=== PATIENT | male | born 1930 | race Caucasian/White ===

== ENCOUNTER → 2017-07-14 | Day surgery (SDC) | payer MEDICARE ==
[2017-07-13 12:06] LABS: BASOPHILS % 0.5 % (0.0-1.0); EOSINOPHILS # (AUTO) 0.1 (0.0-0.4); EOSINOPHILS % 0.9 % (0.0-6.0); HEMATOCRIT 37.2 % (38.2-49.6); HEMOGLOBIN 12.6 g/dL (14.0-18.0); LYMPHOCYTES # (AUTO) 2.9 (1.0-3.2); LYMPHOCYTES % 38.2 % (18.0-39.1); MEAN CORPUSCULAR HEMOGLOBIN 31.3 pg (28-32); MEAN CORPUSCULAR HGB CONC 33.9 g/dL (31-35); MEAN CORPUSCULAR VOLUME 92.5 fL (81-99); MONOCYTES # (AUTO) 0.9 (0.2-0.8); MONOCYTES % 12.4 % (4.4-11.3); NEUTROPHILS # (AUTO) 3.6 (2.1-6.9); NEUTROPHILS % 47.2 % (38.7-80.0); PLATELET COUNT 190 x10e3/uL (140-360); RED BLOOD COUNT 4.02 x10e6/uL (4.3-5.7); RED CELL DISTRIBUTION WIDTH 13.4 % (11.7-14.4)
[2017-07-13 12:15] LABS: INR 1.01; PROTHROMBIN TIME 12.5 seconds (11.9-14.5)
[2017-07-13 12:21] LABS: ANION GAP 15.7 mmol/L (8-16); CALCIUM 9.9 mg/dL (8.4-10.2); CREATININE, SERUM 1.65 mg/dL (0.72-1.25); POTASSIUM 4.7 mmol/L (3.5-5.1)
--- NOTE | 2017-07-13 12:49 | Diagnostic Imaging Report ---
PROCEDURE: Frontal and lateral views of the chest. COMPARISON: Chest 2 views 04/25/2016. INDICATIONS: PRE-OP FINDINGS: Lines/tubes: Left chest device with leads projecting over the expected regions of the right atrium and ventricle. Lungs: The lungs are well inflated and clear. There is no evidence of pneumonia or pulmonary edema. Pleura: There is no pleural effusion or pneumothorax. Heart and mediastinum: The heart and the mediastinum are normal. Atherosclerotic calcifications. Bones: No acute bony abnormality. Degenerative changes of the thoracic spine. IMPRESSION: No acute radiographic abnormality. Dictated by: Charles Arvizu M.D. on 07/13/2017 at 12:49 Electronically approved by: Charles Arvizu M.D. on 07/13/2017 at 12:49
[2017-07-14] VITALS (7 sets, daily range): BP systolic 114–143; BP diastolic 62–77
[~2017-07-14] VITALS: Ht 172.7 cm; Wt 99.8 kg
[~2017-07-14] MED LIST: ACTOS15 MG PO; ALBUTEROL SULF8.5 GM INH; ASPIRIN EC81 MG PO; ASPIRIN325 MG PO; BACITRACIN 50,000 UNIT VIAL ONE; CEFAZOLIN SOD 1 GM VIAL ONE; CEPHALEXIN500 MG PO; CHLORTHALIDONE25 MG PO; CITALOPRAM HBR20 MG PO; FENTANYL CITRATE/PF 100MCG/2 ML INJ ONE; GLIPIZIDE5 MG PO; HEPARIN SOD/SOD CHLORIDE 1,000 ML ONE; HYDROXYZINE HCL25 MG PO; LEVAQUIN500 MG PO; LIDOCAINE 1% W/EPINEPHRINE 20 ML VIAL ONE; LIDOCAINE HCL 2% LOCAL 20 ML VIAL ONE; LOSARTAN; LOSARTAN POTAS100 MG PO; LOSARTAN POTASS25 MG PO; MECLIZINE HCL12.5 MG PO; METFORMIN HCL500 MG PO; MIDAZOLAM HCL 2 MG/2 ML VIAL ONE; NITROGLYCERIN0.4 MG SL; SODIUM CHLORIDE 0.9% 1000ML 1,000 ML ONE; SODIUM CHLORIDE 0.9% 500ML 500 ML ONE; TRADJENTA5 MG PO; TYLENOL WITH C1 EACH PO; Z.0.GLYBURIDE5 MG PO; ZESTRIL10 MG PO
--- OUTSIDE RECORDS SUMMARY | 2017-07-14 07:49 | XMS REPORT ---
Author Author [facility] Address Unknown Phone Unavailable Care Team Providers Care Maintenance Director Name Role Phone SUMMER GARRETT Unavailable Unavailable Problems This patient has no known problems. Allergies, Adverse Reactions, Alerts This patient has no known allergies or adverse reactions. Medications This patient has no known medications. Results Test Description Test Time Test Comments Text Results Atomic Results Result Comments CHEST 2 VIEWS [place] [address] Patient Name: KATYA BARRAGAN MR #: [id number] : 1930 Age/Sex: 86/M Req #: [id number] Adm Physician: Ordered by: SUMMER GARRETT MD Report #: [id number] Location: [facility] Room/Bed: Procedure: [id number] DX/CHEST 2 VIEWS Exam Date: 07/13/17 Exam Time : 1210 REPORT STATUS: Signed PROCEDURE: Frontal and lateral views of the chest. COMPARISON: Chest 2 views 04/25/2016. INDICATIONS: PRE- OP FINDINGS: Lines/tubes: Left chest device with leads projecting over the expected regions of the right atrium and ventricle. Lungs: The lungs are well inflated and clear. There is no evidence of pneumonia or pulmonary edema. Pleura: There is no pleural effusion or pneumothorax. Heart and mediastinum: The heart and the mediastinum are normal. Atherosclerotic calcifications. Bones: No acute bony abnormality. Degenerative changes of the thoracic spine. IMPRESSION: No acute radiographic abnormality. Dictated by: Katya Velazquez M.D. on 2017 at 12:49 Electronically approved by: Katya Velazquez M.D. on 2017 at 12:49 Dictated By: KATYA VELAZQUEZ MD 48 Transcribed By: CAROLEE on 07/13/171248 COPY TO: SUMMER GARRETT MD
--- NOTE | 2017-07-14 11:53 | Operative Report ---
DATE OF PROCEDURE: July 14, 2017 OPERATION PERFORMED: Dual-chamber pacemaker generator replacement. INDICATION: Complete heart block. ANESTHESIA: Versed, fentanyl and lidocaine. COMPLICATIONS: None. TECHNIQUE: The left subclavicular area was draped and prepped in the usual fashion. The area was anesthetized with lidocaine. A 10-blade scalpel was used to open the existing pacemaker pocket. The old generator was dissected out of the pocket and detached from the leads. The leads were attached to a new Cagenix generator. The pocket was then irrigated with antibiotic solution. The new generator was anchored into the pocket with 2-0 silk. The pocket was closed with 2-0 Vicryl for the subcutaneous closure and 2-0 Vicryl for the subcuticular closure. There were no complications. CONCLUSION: Successful dual-chamber pacemaker replacement. Job#: [id number]
== END | disposition home or self-care (01) ==
LOC: CATH LAB 07:47
PROVIDERS: ATTEND Internal Medicine Cardiovascular Disease
DX: I44.2 Atrioventricular block, complete (principal); Z45.010 Encounter for checking and testing of cardiac pacemaker pulse generator [battery]; I49.5 Sick sinus syndrome; I10 Essential (primary) hypertension; E11.9 Type 2 diabetes mellitus without complications; Z88.0 Allergy status to penicillin; Z01.810 Encounter for preprocedural cardiovascular examination; Z01.812 Encounter for preprocedural laboratory examination; Z01.818 Encounter for other preprocedural examination; Z79.82 Long term (current) use of aspirin; Z68.31 Body mass index [BMI] 31.0-31.9, adult; Z87.891 Personal history of nicotine dependence; Z82.49 Family history of ischemic heart disease and other diseases of the circulatory system
CPT/HCPCS: 33228; 36415; 71046; 77002; 80048; 85025; 85610; 93005; C1785; J0690; J2001; J2250; J7030; J7040

== ENCOUNTER 2017-09-07 16:24 | Emergency (ER) | payer MEDICARE ==
[~2017-09-07] VITALS: Ht 172.7 cm; Wt 98.9 kg
[~2017-09-07 16:24] MED LIST changes: -BACITRACIN 50,000 UNIT VIAL ONE; -CEFAZOLIN SOD 1 GM VIAL ONE; -FENTANYL CITRATE/PF 100MCG/2 ML INJ ONE; -HEPARIN SOD/SOD CHLORIDE 1,000 ML ONE; -LIDOCAINE 1% W/EPINEPHRINE 20 ML VIAL ONE; -LIDOCAINE HCL 2% LOCAL 20 ML VIAL ONE; -MIDAZOLAM HCL 2 MG/2 ML VIAL ONE; -SODIUM CHLORIDE 0.9% 1000ML 1,000 ML ONE; -SODIUM CHLORIDE 0.9% 500ML 500 ML ONE
[2017-09-07] MEDS ORDERED: KETOROLAC TROMETHAMINE 30 MG/ML VIAL IM PRN (16:45)
--- NOTE | 2017-09-07 17:53 | Diagnostic Imaging Report ---
PROCEDURE:X-RAY LEFT KNEE, THREE OR MORE VIEWS COMPARISON:08/12/15 INDICATIONS:FALL KNEE PAIN FINDINGS: See conclusion. CONCLUSION: No acute fracture or dislocation of the left kidney. Tricompartmental degenerative changes. No suprapatellar joint effusion. Dictated by: Rell Israel M.D. on 09/07/2017 at 17:57 Electronically approved by: Rell Israel M.D. on 09/07/2017 at 17:57
--- NOTE | 2017-09-07 17:55 | Diagnostic Imaging Report ---
PROCEDURE:X-RAY LEFT ELBOW, COMPLETE COMPARISON:None. INDICATIONS:FALL LEFT ELBOW PAIN FINDINGS: There are no fractures, dislocations, lytic or blastic lesions. The soft-tissues are unremarkable. CONCLUSION: No acute fracture or dislocation of the left elbow. Dictated by: Rell Israel M.D. on 09/07/2017 at 17:58 Electronically approved by: Rell Israel M.D. on 09/07/2017 at 17:59
--- NOTE | 2017-09-07 17:58 | Diagnostic Imaging Report ---
PROCEDURE:X-RAY LEFT FOREARM, TWO VIEWS COMPARISON:None. INDICATIONS:FALL, FOREARM PAIN FINDINGS: There are no fractures, dislocations, lytic or blastic lesions. Punctate densities overlying the lateral superior forearm, could be artifactual or represent foreign bodies. CONCLUSION: No acute fracture or dislocation of the left forearm. Dictated by: Rell Israel M.D. on 09/07/2017 at 18:01 Electronically approved by: Rell Israel M.D. on 09/07/2017 at 18:01
--- NOTE | 2017-09-07 18:00 | Diagnostic Imaging Report ---
PROCEDURE:X-RAY LEFT WRIST, COMPLETE COMPARISON:None. INDICATIONS:FALL LEFT WRIST PAIN FINDINGS: There are no fractures, dislocations, lytic or blastic lesions. Severe degenerative changes of the first carpometacarpal joint with mild subluxation at this level. The soft-tissues are unremarkable. CONCLUSION: No acute fracture or dislocation of the left wrist. Dictated by: Rell Israel M.D. on 09/07/2017 at 18:04 Electronically approved by: Rell Israel M.D. on 09/07/2017 at 18:04
--- NOTE | 2017-09-07 18:06 | Diagnostic Imaging Report ---
PROCEDURE:X-RAY BILATERAL RIBS WITH CHEST XRAY COMPARISON:Chest x-ray dated 07/13/17 INDICATIONS:FALL LEFT ANTERIOR RIB PAIN FINDINGS: Stable left chest wall dual-lead cardiac device in place. No lung consolidation. No pleural effusion or pneumothorax. No evidence of rib fracture, specifically on the left side. Cardiac silhouette is enlarged. Degenerative changes of the thoracic spine, shoulders, and AC joints. CONCLUSION: No evidence of rib fracture, specifically on the left side. No acute thoracic abnormality. Dictated by: Rell Israel M.D. on 09/07/2017 at 18:09 Electronically approved by: Rell Israel M.D. on 09/07/2017 at 18:09
--- NOTE | 2017-09-07 18:46 | Diagnostic Imaging Report ---
History:Fall hit the head Comparison studies:None Technique: Axial images were obtained from the skull base to the vertex. Coronal and sagittal images reconstructed from the axial data. Intravenous contrast: None Findings: Scalp/skull: No abnormalities. Extra-axial spaces: No masses. No fluid collections. Brain sulci: Mildly prominent. Ventricles: Mild compensatory dilatation. No hydrocephalus. Parenchyma: Small hypodensities in the supratentorial white matter are small vessel ischemic changes. 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 No masses, hemorrhage, acute or chronic cortical vascular insults. Sellar/suprasellar region: No abnormalities. Craniocervical junction: Patent foramen magnum. No Chiari one malformation. Incidental findings: Atherosclerotic calcifications in the carotid siphons . Impression: No acute abnormalities. Chronic findings: 1. Mild generalized volume loss. 2. Mild supratentorial white matter small vessel ischemic changes. Signed by: DR Jhon Bustos M.D. on 09/07/2017 6:43 PM
--- NOTE | 2017-09-07 18:56 | Diagnostic Imaging Report ---
History: Fall Comparison studies: None Technique: Axial images were obtained through the cervical region.. Coronal and sagittal images reconstructed from the axial data.. Intravenous contrast: None Findings: Fractures: No acute fracture. Chronic well corticated bone fragments medial to the right occipital condyle and at the tip of the dens. Soft tissues: No gross abnormalities. Atlantoaxial articulation: Intact. Alignment: Normal lordosis. No scoliosis. Cervicomedullary junction: No abnormalities. The foramen magnum is patent. Vertebrae: No infection or neoplasm. Degenerative changes: Anteriorly projecting osteophytes from C2-C6. Disc degeneration posterior disc osteophyte complexes, uncinate process and facet hypertrophy from C3-C6 results in mild to moderate canal stenosis and foraminal narrowing. Atherosclerotic calcifications at the carotid bulbs. IMPRESSION: 1. No acute cervical spine abnormalities. 2. Cannot exclude ligament, spinal cord and or vascular abnormalities on the basis of this examination. Signed by: DR Jhon Bustos M.D. on 09/07/2017 6:52 PM
[2017-09-07 19:18] VITALS: BP 153/74
[2017-09-08] MEDS ORDERED: BACITRACIN ZINC 15 GM OINT TOP SCH (09:00)
== END 2017-09-07 19:31 | disposition home or self-care (01) ==
LOC: ER 16:24
DX: S50.02XA Contusion of left elbow, initial encounter (principal); S80.02XA Contusion of left knee, initial encounter; W18.09XA Striking against other object with subsequent fall, initial encounter; Y93.E9 Activity, other interior property and clothing maintenance; Y92.9 Unspecified place or not applicable; S50.312A Abrasion of left elbow, initial encounter; S50.812A Abrasion of left forearm, initial encounter; S60.812A Abrasion of left wrist, initial encounter; S60.512A Abrasion of left hand, initial encounter; S80.212A Abrasion, left knee, initial encounter; M17.12 Unilateral primary osteoarthritis, left knee; Z79.82 Long term (current) use of aspirin
CPT/HCPCS: 70450; 71111; 72125; 73080; 73090; 73110; 73562; 99283; J1885

== ENCOUNTER 2018-02-23 06:46 | Observation (INO) | payer MEDICARE ==
[2018-02-22 16:28] LABS: BASOPHILS # (AUTO) 0.1 (0.0-0.1); BASOPHILS % 0.7 % (0.0-1.0); EOSINOPHILS # (AUTO) 0.1 (0.0-0.4); EOSINOPHILS % 0.9 % (0.0-6.0); HEMATOCRIT 38.2 % (38.2-49.6); HEMOGLOBIN 12.4 g/dL (14.0-18.0); LYMPHOCYTES # (AUTO) 2.4 (1.0-3.2); LYMPHOCYTES % 35.4 % (18.0-39.1); MEAN CORPUSCULAR HEMOGLOBIN 31.6 pg (28-32); MEAN CORPUSCULAR HGB CONC 32.5 g/dL (31-35); MEAN CORPUSCULAR VOLUME 97.2 fL (81-99); MONOCYTES # (AUTO) 0.8 (0.2-0.8); MONOCYTES % 12.5 % (4.4-11.3); NEUTROPHILS # (AUTO) 3.3 (2.1-6.9); NEUTROPHILS % 49.6 % (38.7-80.0); PLATELET COUNT 222 x10e3/uL (140-360); RED BLOOD COUNT 3.93 x10e6/uL (4.3-5.7); RED CELL DISTRIBUTION WIDTH 13.2 % (11.7-14.4)
[2018-02-22 16:44] LABS: INR 0.84; PARTIAL THROMBOPLASTIN TIME 27.3 seconds (23.8-35.5); PROTHROMBIN TIME 12.3 seconds (11.9-14.5)
[2018-02-22 16:46] LABS: ALBUMIN/GLOBULIN RATIO 1.3 (0.8-2.0); ANION GAP 17.4 mmol/L (8-16); CALCIUM 10.1 mg/dL (8.4-10.2); CREATININE, SERUM 1.52 mg/dL (0.72-1.25); POTASSIUM 4.4 mmol/L (3.5-5.1)
--- NOTE | 2018-02-22 17:04 | Diagnostic Imaging Report ---
ADDENDUM #1 Frontal and lateral views of the chest. HISTORY: Chest pain, PRE-OP FOR HEART CATHETERIZATION COMPARISON: Chest radiograph October 30, 2015 DISCUSSION: Soft tissue attenuation partially limits sensitivity of the exam. A left-sided dual-lead implanted cardiac device, appears unchanged Lungs: Low lung volumes result in bibasilar vascular crowding, accentuation of the pulmonary interstitial markings, central pulmonary vasculature, and the cardiac silhouette. Allowing for these limitations, the findings are as follows: No evidence of a consolidative pneumonia or pulmonary alveolar edema. Pleura: No pleural effusion or pneumothorax. Heart and mediastinum: The cardiomediastinal silhouette appears unremarkable. Bones: No acute osseous lesion. IMPRESSION: 1. No acute radiographic abnormality. No significant interval change. Signed by: Dr. Nacho Sanz D.O., M.M.M. on 02/26/2018 4:38 PM ORIGINAL REPORT Frontal and lateral views of the chest. HISTORY: PRE-OP FOR HEART CATHETERIZATION COMPARISON: Chest radiograph October 30, 2015 DISCUSSION: Soft tissue attenuation partially limits sensitivity of the exam. A left-sided dual-lead implanted cardiac device, appears unchanged Lungs: Low lung volumes result in bibasilar vascular crowding, accentuation of the pulmonary interstitial markings, central pulmonary vasculature, and the cardiac silhouette. Allowing for these limitations, the findings are as follows: No evidence of a consolidative pneumonia or pulmonary alveolar edema. Pleura: No pleural effusion or pneumothorax. Heart and mediastinum: The cardiomediastinal silhouette appears unremarkable. Bones: No acute osseous lesion. IMPRESSION: 1. No acute radiographic abnormality. 2. No significant interval change. Signed by: Dr. Nacho Sanz D.O., M.M.M. on 02/22/2018 5:01 PM
[~2018-02-23] VITALS: Ht 172.7 cm; Wt 98.5 kg
[2018-02-23] VITALS (28 sets, daily range): BP systolic 93–170; BP diastolic 48–94
[~2018-02-23 06:46] MED LIST changes: +CALCIUM PO; +LEVEMIR100 UNIT/1 SC; +VITAMIN D1000 UNI1 PO; +VITAMIN E400 UNI1 PO
[2018-02-23] MEDS ORDERED: MIDAZOLAM HCL 2 MG/2 ML VIAL ONE (07:24)
[2018-02-23] MEDS ORDERED: IOPAMIDOL 370 MG/ML 200 ML INFUS..BTL INJ ONE ×2 (07:25→08:51)
[2018-02-23] MEDS ORDERED: FENTANYL CITRATE/PF 100MCG/2 ML INJ ONE (07:25)
[2018-02-23] MEDS ORDERED: HEPARIN SOD/SOD CHLORIDE 2,000 ML ONE (07:25)
[2018-02-23] MEDS ORDERED: LIDOCAINE HCL 2% LOCAL 20 ML VIAL ONE (07:25)
[2018-02-23] MEDS ORDERED: SODIUM CHLORIDE 0.9% 1000ML 1,000 ML ONE (07:25)
[2018-02-23] MEDS ORDERED: HEPARIN SOD (PORCINE) 1000 UNIT/ML 30ML ONE (09:22)
[2018-02-23] MEDS ORDERED: SODIUM CHLORIDE 0.9% 50ML 50 ML ONE (09:23)
[2018-02-23] MEDS ORDERED: CLOPIDOGREL BISULFATE 75 MG TAB ONE ×2 (09:23)
[2018-02-23] MEDS ORDERED: BIVALRIUDIN 250 MG/VIAL VIAL IV ONE (09:23)
[2018-02-23] MEDS ORDERED: NITROGLYCERIN/D5W 200 MCG/ML 250 ML ONE (09:24)
[2018-02-23] MEDS ORDERED: FUROSEMIDE INJ 10 MG/ML 4 ML VIAL ONE (09:45)
--- NOTE | 2018-02-23 10:25 | Operative Report ---
DATE OF PROCEDURE: February 23, 2018 PROCEDURES 1. Intracoronary stent placement in the left anterior descending artery. 2. Left heart catheterization. INDICATIONS: Angina and coronary artery disease. COMPLICATIONS: None. ANESTHESIA: Versed, fentanyl and lidocaine. TECHNIQUE: The right groin was draped and prepped in the usual fashion. The area was anesthetized with lidocaine. Standard Seldinger technique was used to place a 6-Croatian sheath into the right femoral artery without difficulty. JL4 catheter was used to selectively engage the left coronary artery. The 3DRC catheter was used to selectively engage the right coronary artery. A pigtail catheter was used to perform a left ventriculogram. Attention was then turned to 80% stenosis in the proximal left anterior descending artery. The patient was bolused with Angiomax and started on an Angiomax drip. Patient was given 600 mg of Plavix. A XP 3.5 guiding catheter was used to selectively engage the left coronary artery. A Choice PT wire was used to cross the area of 80% stenosis. A 3 mm x 28 mm Synergy stent was then deployed directly at the site of stenosis and inflated up to 16 atmospheres for 30 seconds. The stent was post dilated with a 12 x 3.25 noncompliant balloon. An Angio-Seal device was used for closure. There were no complications. Results are as follows: 1. There is a normal left main trunk. 2. There is a large left anterior descending artery which gives rise a medium sized diagonal branch. There was 80% stenosis in the proximal left anterior descending artery. 3. There was a medium sized AV circumflex artery which gave rise to a large bifurcating obtuse marginal branch. There was minimal disease in the circumflex system. 4. There was a large dominant right coronary artery with minimal disease. 5. The left ventriculogram demonstrated moderate left ventricular dysfunction with hypokinesis of the apex and an overall ejection fraction of 40%. CONCLUSION: Successful stent placement in the left anterior descending artery without complications. Job#: [id number] ALFREDO
[2018-02-23] MEDS ORDERED: ACETAMINOPHEN 1000 MG/100 ML 100 ML IV ONE (13:39)
[2018-02-23] MEDS ORDERED: DEXTROSE 50% SYRINGE 50 ML IV PRN (14:30)
[2018-02-23] MEDS ORDERED: ZOLPIDEM TARTRATE 5 MG TAB PO PRN (14:30)
--- NOTE | 2018-02-23 15:39 | Consultation ---
DATE OF CONSULTATION: February 23, 2018 PULMONARY/CRITICAL CARE CONSULTATION REFERRING PHYSICIAN: Dr. Bucky Sifuentes CHIEF COMPLAINT: Possible sleep apnea and coronary artery disease. HISTORY OF PRESENT ILLNESS: The patient is an 87-year-old man. He has a history of insulin dependent diabetes and coronary artery disease. He had a positive stress test as an outpatient and required a catheterization with stent placement today. After the stent placement, he received Angiomax followed by Plavix. He is not reporting any pain, difficulty breathing or other acute symptoms. The patient also reports falling asleep frequently during the day. His notes that he snores and sometimes stops breathing during the night. PAST SURGICAL HISTORY 1. Status post angioplasty and stent placement as noted above. 2. Status post pacemaker placement. 3. Status post hernia repair. PAST MEDICAL HISTORY 1. Diabetes. 2. Coronary artery disease. 3. Hypertension. FAMILY HISTORY: There is a history of diabetes in the family. SOCIAL HISTORY: The patient does not use alcohol. He is not a smoker. ALLERGIES: PENICILLIN. REVIEW OF SYSTEMS: No fever or headache. He does not complain of any sore throat. He does note some nasal drainage and some cough. He does not complain of chest pain. He has no acute dyspnea. He has no nausea or vomiting. There is no abdominal pain. PHYSICAL EXAMINATION VITAL SIGNS: The patient is afebrile. HEENT: No facial swelling or erythema. The nasal mucosa is normal. The oropharynx is normal. LYMPHATIC: No submandibular, cervical or supraclavicular adenopathy. CARDIAC: Regular rate and rhythm with normal S1 and S2. There are no murmurs or rubs. LUNGS: Auscultation of the lungs reveals clear breath sounds bilaterally. There is no wheezing. ABDOMEN: Soft, nontender. There is no rebound or guarding. EXTREMITIES: No leg edema or calf tenderness. IMPRESSION 1. Obstructive sleep apnea. 2. Unstable angina with angioplasty and stent placement. 3. Chronic renal failure, stage 3. 4. Insulin dependent diabetes. 5. Hypertension. PLAN 1. The patient will continue antiplatelet therapy and will be observed overnight. 2. Statin to control cholesterol. 3. Control blood pressure. 4. Arrange for outpatient sleep study. I discussed this with the patient and his , and we think that a home sleep study through the office would be the best option for him. Job#: [id number] MH
[2018-02-23] MEDS: INSULIN DETEMIR 100 UNIT/ML PEN SQ SCH (16:37)
[2018-02-23] MEDS: INSULIN LISPRO 100 UNIT/1 ML 3ML VIAL SQ SCH ×2 (16:37→20:52)
[2018-02-24 04:29] VITALS: BP 109/62
[2018-02-24 06:11] LABS: BASOPHILS # (AUTO) 0.1 (0.0-0.1); BASOPHILS % 0.7 % (0.0-1.0); EOSINOPHILS # (AUTO) 0.1 (0.0-0.4); EOSINOPHILS % 0.8 % (0.0-6.0); HEMATOCRIT 36.8 % (38.2-49.6); HEMOGLOBIN 12.2 g/dL (14.0-18.0); LYMPHOCYTES # (AUTO) 2.4 (1.0-3.2); LYMPHOCYTES % 31.3 % (18.0-39.1); MEAN CORPUSCULAR HEMOGLOBIN 31.6 pg (28-32); MEAN CORPUSCULAR HGB CONC 33.2 g/dL (31-35); MEAN CORPUSCULAR VOLUME 95.3 fL (81-99); MONOCYTES # (AUTO) 1.1 (0.2-0.8); MONOCYTES % 14.8 % (4.4-11.3); NEUTROPHILS # (AUTO) 3.9 (2.1-6.9); NEUTROPHILS % 51.6 % (38.7-80.0); PLATELET COUNT 214 x10e3/uL (140-360); RED BLOOD COUNT 3.86 x10e6/uL (4.3-5.7); RED CELL DISTRIBUTION WIDTH 13.2 % (11.7-14.4)
[2018-02-24 06:34] LABS: ALBUMIN 3.6 g/dL (3.5-5.0); ALBUMIN/GLOBULIN RATIO 1.2 (0.8-2.0); ANION GAP 16.6 mmol/L (8-16); CALCIUM 9.2 mg/dL (8.4-10.2); CHOL/HDL RATIO 2.5 (3.9-4.7); CREATININE, SERUM 1.46 mg/dL (0.72-1.25); POTASSIUM 3.6 mmol/L (3.5-5.1)
[2018-02-24 07:00] VITALS: BP 151/85
[2018-02-24 08:04] VITALS: BP 124/80
[2018-02-24] MEDS: INSULIN LISPRO 100 UNIT/1 ML 3ML VIAL SQ SCH (08:22)
[2018-02-24] MEDS: INSULIN DETEMIR 100 UNIT/ML PEN SQ SCH (08:23)
[2018-02-24] MEDS ORDERED: CLOPIDOGREL BISULFATE 75 MG TAB PO SCH (09:00)
[2018-02-24] MEDS ORDERED: ASPIRIN 325 MG TAB PO SCH (09:00)
[2018-02-24] MEDS ORDERED: OYST-CAL-D 500MG TABLET PO SCH (09:00)
[2018-02-24] MEDS ORDERED: CHOLECALCIFEROL 1,000 UNIT TAB PO SCH (09:00)
[2018-02-24] MEDS ORDERED: VITAMIN E 400 UNIT CAP PO SCH (09:00)
[2018-02-24] MEDS ORDERED: CALCIUM PO SCH (09:00)
[2018-02-24] MEDS ORDERED: LOSARTAN POTASSIUM 100 MG TAB PO SCH (09:00)
[2018-02-24] MEDS ORDERED: INFLUENZA VIRUS VAC SPLIT INJ 0.5 ML SYR IM NR (09:30)
--- NOTE | 2018-02-25 03:33 | Discharge Summary ---
DISCHARGE DIAGNOSES 1. Coronary artery disease with angioplasty and stent placement. 2. Obstructive sleep apnea. 3. Insulin-dependent diabetes. 4. Chronic renal failure, stage III. 5. Hypertension. DISCHARGE MEDICATIONS 1. Plavix 75 mg p.o. daily. 2. Aspirin 325 mg p.o. daily. 3. Chlorthalidone 25 mg p.o. daily. 4. Glipizide 10 mg p.o. b.i.d. 5. Insulin Levemir 30 units q.h.s., 15 units q. a.m. 6. Losartan 100 mg p.o. q. a.m. 7. Metformin 500 mg p.o. b.i.d. 8. Actos 15 mg p.o. daily. 9. Vitamin E. PROCEDURE: Coronary artery catheterization with stent placement. HISTORY OF PRESENT ILLNESS: The patient is an 87-year-old man. He has a history of exertional dyspnea and an abnormal stress test. HOSPITAL COURSE: The patient came into the hospital in preparation for cardiac cath and stent placement. He had a catheterization done and a stent placed without incident. He received Angiomax perioperatively as well as Plavix. Patient did well postoperatively. He had no groin pain or bleeding. He did not complain of any chest pain. He had no arrhythmias overnight. Patient was continued on his insulin as well as his antihypertensive regimen. He and his gave a history of daytime fatigue as well as snoring and disrupted sleep at night. Arrangements will be made for an outpatient sleep study. DISPOSITION: Patient will be discharged home. He will follow up with Dr. Bucky Sifuentes of cardiology as well as Dr. Garcia. He will take Plavix every day as well as his statin. Job#: [id number] VANESA
== END 2018-02-24 10:34 | disposition home or self-care (01) ==
LOC: CATH LAB 06:46 → PACU V 10:04 → IMCU 13:47
PROVIDERS: ADMIT Internal Medicine Cardiovascular Disease; ATTEND Internal Medicine Cardiovascular Disease
DX: I25.110 Atherosclerotic heart disease of native coronary artery with unstable angina pectoris (principal); E11.22 Type 2 diabetes mellitus with diabetic chronic kidney disease; I12.9 Hypertensive chronic kidney disease with stage 1 through stage 4 chronic kidney disease, or unspecified chronic kidney disease; N18.3 Chronic kidney disease, stage 3 (moderate); Z79.4 Long term (current) use of insulin; Z79.84 Long term (current) use of oral hypoglycemic drugs; G47.33 Obstructive sleep apnea (adult) (pediatric); Z01.810 Encounter for preprocedural cardiovascular examination; Z01.812 Encounter for preprocedural laboratory examination; Z01.818 Encounter for other preprocedural examination; Z95.0 Presence of cardiac pacemaker; Z79.82 Long term (current) use of aspirin; Z88.0 Allergy status to penicillin
CPT/HCPCS: 93458; C9600; 36415; 71046; 80053; 80061; 82948; 85025; 85610; 85730; 92928; 93005; C1769; C1874; G0378; J0583; J1644; J1940; J2001; J2250; J7030; Q9967

== ENCOUNTER 2018-03-02 02:09 | Inpatient (IN) | payer MEDICARE ==
[~2018-03-02] VITALS: Ht 154.4 cm; Wt 105.5 kg
[2018-03-02] VITALS (10 sets, daily range): BP systolic 105–139; BP diastolic 54–107
[2018-03-02] MEDS ORDERED: SODIUM CHLORIDE 0.9% 1000ML 1,000 ML ONE (02:14)
[2018-03-02] MEDS ORDERED: ACETAMINOPHEN 325 MG TAB ONE (02:14)
[2018-03-02] MEDS ORDERED: SODIUM CHLORIDE 0.9% 1000ML 1,000 ML IV ONE ×2 (02:15→03:45)
[2018-03-02] MEDS ORDERED: ACETAMINOPHEN 325 MG TAB PO ONE (02:15)
[2018-03-02] MEDS ORDERED: ALBUTEROL/IPRATROPIUM 3 ML NEB NEB ONE (02:15)
[2018-03-02] MEDS ORDERED: SODIUM CHLORIDE 0.9% 50ML 50 ML ONE (02:23)
[2018-03-02] MEDS ORDERED: TESSALON PERLE100 MG PO (02:27)
[2018-03-02] MEDS ORDERED: PREDNISONE5 MG PO (02:27)
[2018-03-02 02:29] LABS: BASOPHILS % 0.4 % (0.0-1.0); EOSINOPHILS % 0.2 % (0.0-6.0); HEMATOCRIT 32.1 % (38.2-49.6); HEMOGLOBIN 10.8 g/dL (14.0-18.0); LYMPHOCYTES # (AUTO) 1.4 (1.0-3.2); LYMPHOCYTES % 17.6 % (18.0-39.1); MEAN CORPUSCULAR HEMOGLOBIN 31.7 pg (28-32); MEAN CORPUSCULAR HGB CONC 33.6 g/dL (31-35); MEAN CORPUSCULAR VOLUME 94.1 fL (81-99); MONOCYTES # (AUTO) 1.4 (0.2-0.8); MONOCYTES % 16.7 % (4.4-11.3); NEUTROPHILS # (AUTO) 5.3 (2.1-6.9); NEUTROPHILS % 64.6 % (38.7-80.0); PLATELET COUNT 200 x10e3/uL (140-360); RED BLOOD COUNT 3.41 x10e6/uL (4.3-5.7)
[2018-03-02] MEDS ORDERED: CEFTRIAXONE SOD 1 GM VIAL IV ONE (02:30)
[2018-03-02] MEDS ORDERED: CALCIUM CARBON500 MG PO (02:50)
[2018-03-02 02:54] LABS: ALBUMIN 3.4 g/dL (3.5-5.0); CALCIUM 9.5 mg/dL (8.4-10.2); CREATININE, SERUM 1.95 mg/dL (0.72-1.25)
[2018-03-02 02:58] LABS: STREPTOCOCCUS GRP A ANTIGEN POSITIVE (NEGATIVE)
[2018-03-02 03:01] LABS: CREATINE KINASE MB 1.9 ng/mL (0-5.0)
[2018-03-02 03:04] LABS: B-TYPE NATRIURETIC PEPTIDE2 73.7 pg/mL (0-100)
[2018-03-02 03:05] LABS: INFLUENZAE A&B ANTIGEN (RAPID) NEGATIVE (NEGATIVE)
--- NOTE | 2018-03-02 03:16 | Diagnostic Imaging Report ---
CHEST SINGLE (PORTABLE), 03/02/2018 2:12 AM Technique: CHEST SINGLE (PORTABLE) Comparison: 02/22/18 Clinical history: Cough, fever Findings: Limited by soft tissue attenuation and single portable technique. Stable cardiac silhouette with left chest wall pacer. Suggestion of mild right infrahilar/basilar opacity. No effusion or pneumothorax. Impression: Possible right lower lobe pneumonia. Recommend follow-up upright PA and lateral for better assessment. Signed by: Dr Doris Atkins MD on 03/02/2018 3:13 AM
[2018-03-02] MEDS ORDERED: SODIUM CHLORIDE 0.9% 1000ML 1,000 ML IV SCH (03:34)
[2018-03-02] MEDS: ALBUTEROL SULF 0.083% NEB SOLN 3 ML NEB NEB SCH ×2 (03:45→07:06)
[2018-03-02] MEDS ORDERED: AZITHROMYCIN 500MG/NS 250 ML 250 ML IV ONE (03:45)
[2018-03-02] MEDS ORDERED: CEFTRIAXONE SOD 1 GM VIAL IV SCH (03:45)
[2018-03-02] MEDS ORDERED: DEXTROSE 50% SYRINGE 50 ML IV PRN ×2 (03:45→09:15)
[2018-03-02] MEDS ORDERED: METHYLPREDNISOLONE SOD SUCC 125 MG/2ML VIAL IV ONE (03:45)
[2018-03-02] MEDS ORDERED: ONDANSETRON HCL INJ 2 MG/ML VIAL IV PRN (03:45)
[2018-03-02] MEDS: IPRATROPIUM BROMIDE 0.02% 2.5 ML NEB NEB SCH ×3 (07:06→19:32)
[2018-03-02 07:43] LABS: BAND NEUTROPHILS % (MANUAL) 3 %; LYMPHOCYTES % (MANUAL) 20 % (19-48); MONOCYTES % (MANUAL) 16 % (3.4-9.0); NEUTROPHILS % (MANUAL) 61 % (40-74)
[2018-03-02 07:44] LABS: PLATELET ESTIMATE ADEQUATE; PLATELET MORPHOLOGY COMMENT NORMAL; RBC MORPHOLOGY COMMENT NORMAL
[2018-03-02] MEDS: INSULIN REGULAR, HUMAN 100 UNIT/1 ML 3ML VIAL SQ SCH ×4 (08:30→20:03)
[2018-03-02] MEDS ORDERED: MECLIZINE HCL 12.5 MG TAB PO PRN (09:15)
[2018-03-02] MEDS ORDERED: ASPIRIN 325 MG TAB PO SCH (09:15)
[2018-03-02] MEDS ORDERED: FUROSEMIDE INJ 10 MG/ML 4 ML VIAL IV ONE (09:15)
[2018-03-02] MEDS ORDERED: FUROSEMIDE INJ 10 MG/ML 4 ML VIAL IV SCH (09:15)
[2018-03-02] MEDS ORDERED: BENZONATATE 100 MG CAP PO PRN (09:15)
[2018-03-02] MEDS ORDERED: MELATONIN 5 MG TABLET PO PRN (09:45)
[2018-03-02] MEDS ORDERED: CITRATE OF MAGNESIA 300ML BOTTLE PO ONE (09:45)
[2018-03-02] MEDS ORDERED: DOCUSATE SODIUM 100 MG CAP PO ONE (09:45)
--- NOTE | 2018-03-02 10:08 | Consultation ---
DATE OF CONSULTATION: March 02, 2018 CARDIOLOGY CONSULTATION CHIEF COMPLAINT: The patient is an 87 year old with shortness of breath. HISTORY OF PRESENT ILLNESS: The patient is an 87 year old who a stent placed in the left anterior descending artery last week. The patient reports developing some fever, shortness of breath and coughing at home. The patient came to the emergency room and was noted to have a right lower lobe infiltrate on chest x-ray and subsequently admitted. The patient has had no chest pain. PAST MEDICAL HISTORY: Significant for: 1. Coronary artery disease and previous stent placement in the left anterior descending artery. 2. Congestive heart failure. 3. Previous automatic implanted cardioverter defibrillator placement. 4. Diabetes mellitus. MEDICATIONS: At home include aspirin, glipizide, insulin, losartan, Plavix. SOCIAL HISTORY: The patient does not drink. Does not smoke. FAMILY HISTORY: There is a known family history of coronary artery disease. PHYSICAL EXAMINATION GENERAL: The patient is a well-developed, older male in no obvious distress. VITAL SIGNS: Included a temperature of 98.9, pulse of 99, blood pressure 107/66. HEENT: The patient's cranium was normocephalic and atraumatic. Extraocular muscles were intact. Sclerae is anicteric. Pupils equal, round and reactive to light. There is no pallor or cyanosis of the oral mucosa. There is no erythema or edema of the throat. NECK: Supple. No jugular venous distention. No carotid bruits. CHEST: Demonstrated expiratory wheezing and rhonchi. CARDIAC: Demonstrated normal S1 and S2 with a short 2/6 systolic murmur. ABDOMEN: Demonstrated good bowel sounds. No tenderness. No masses. EXTREMITIES: There was 1-2+ edema. NEUROLOGIC: The patient was alert and oriented times 3. Cranial nerves II-XII are intact. Motor strength was +/5+5 in all limbs. The patient's EKG demonstrated AV sequential pacing. IMPRESSION: The patient is an 87 year old admitted with what appears to be pneumonia. RECOMMENDATIONS: Will be as follows: 1. The patient will need to be treated with IV antibiotics and aerosol treatments. 2. The patient will require repeat echocardiogram. 3. The patient will require a dose of IV Lasix. 4. The patient needs to stay on the Plavix due to the recent intracoronary stent. Job#: [id number] RI
[2018-03-02 10:21] LABS: CREATINE KINASE MB 3.7 ng/mL (0-5.0)
--- NOTE | 2018-03-02 10:26 | History and Physical ---
CHIEF COMPLAINT: Shortness of breath, cough and congestion. HPI: An 87-year-old male with known history of CAD with recent cardiac stent placement last Monday performed by Dr. Sifuentes, cardiology. Also, has a history of type 2 diabetes and hypertension presented to the ED with the complaints of cough, congestion and shortness of breath ongoing for the last 4 to 5 days. Patient reports that last Monday he reports having some shortness of breath after his procedure that was performed on last Monday. Reports having some cough, congestion and subjective fever as well. He also reports having some productive sputum. He called his PCP, but he was unable to be seen until next Monday. Patient was seen and evaluated at bedside on the medical floor. Currently, in [facility]. He is doing well. Vital signs are stable. He is on nasal cannula. He has already been started on antibiotics, steroids and neb treatments. Patient reports feeling a little bit better today compared to yesterday. REVIEW OF SYSTEMS: Pertinent positives are cough, congestion, subjective fever, sputum production, shortness of breath. Pertinent negative: Denies any chest pain, palpitation, nausea, vomiting, diarrhea, dysuria, hematuria, frequency, urgency, lightheadedness, dizziness, abdominal pain, headache, or any other complaints. The rest of the 14-point review of systems have been reviewed with the patient and are negative. ALLERGIES: PENICILLIN. HOME MEDICATIONS: He takes: 1. Aspirin 325 mg daily. 2. Calcium carbonate 500 mg daily. 3. Cholecalciferol 1000 units daily. 4. Glipizide 10 mg p.o. b.i.d. 5. Losartan 100 mg daily. 6. Meclizine 12.5 mg p.r.n. for dizziness. 7. Actos 15 mg daily. 8. Also, takes questionable I believe Levemir, but unknown dose. 9. Tessalon Perles. 10. Metformin 1000 mg b.i.d. 11. Prednisone 5 mg daily. PAST MEDICAL HISTORY: CAD, type 2 diabetes, hypertension, morbid obesity. SURGICAL HISTORY: Left heart cath last Monday. Had a stent placed. FAMILY HISTORY: Hypertension and diabetes. SOCIAL HISTORY: No drugs. No alcohol. Does not smoke. Good social support. He is . PHYSICAL EXAMINATION VITAL SIGNS: Temperature is 98.9, pulse 99, respiratory rate 24, pulse ox was 98% on 2 L nasal cannula. GENERAL: Not in acute distress. Alert and oriented times 3. Cooperative on examination. HEENT: Head is normocephalic and atraumatic. Eyes: Pupils equal, round and reactive to light bilaterally. Extraocular movements intact bilaterally. NECK: Supple. Good range of motion. Throat with no evidence of any erythema or exudates in the posterior pharynx. Has poor dentition. PULMONARY: Clear to auscultation bilaterally. No wheezing. No rales. Positive rhonchi. Good expiratory effort. CARDIOVASCULAR: Positive S1 and S2. No murmurs, rubs or gallops appreciated. ABDOMEN: Soft, nondistended and nontender to palpation. Bowel sounds present. MUSCULOSKELETAL: Strength is 5/5 throughout. No evidence of any muscle deficit on examination. No weakness appreciated. NEUROLOGICAL: Cranial nerves II-XII are grossly intact. No evidence of any neurological deficits on exam. SKIN: Intact. Warm to touch. Good cap refill. PSYCHIATRIC: Normal affect and mood. EXTREMITIES: No edema. Good range of motion throughout. LAB FINDINGS: Show a white count of white count 8.1, hemoglobin 10.8, hematocrit 32, and platelets of 200,000. Chemistry: Sodium 139, potassium 4, chloride 102, bicarb 23, anion gap 18, BUN 34, creatinine is 1.95. Serologies: Group B strep positive. Influenza negative. MICROBIOLOGY: Blood cultures are pending. IMAGING STUDIES: Chest x-ray shows possible right lower lobe pneumonia. IMPRESSION 1. Respiratory distress secondary to community-acquired pneumonia. 2. Community-acquired pneumonia with possible underlying acute bronchitis. 3. Chronic kidney disease, stage 3-4. 4. Coronary artery disease: Status post recent stent placement. 5. Type 2 diabetes. 6. Hypertension. PLAN: At this time, in relation to his respiratory status, I will get a pulmonary consultation, IV steroids, antibiotics. Monitor blood cultures. Neb treatments and anti-tussants. In relation to his cardiac recent stent, cardiology was consulted to monitor and evaluate closely. He will be getting IV Lasix, as well as Plavix and aspirin to be restarted. Cardioprotective meds will be restarted as soon as possible. In relation to his type 2 diabetes, will have insulin sliding scale and Accu-Cheks, oral anti-glycemics, and monitor closely. Resume antihypertensive medications. Will put him on Lovenox for DVT prophylaxis. Will get PT and OT eval to get the patient ambulating. Otherwise, will continue to follow. I spent more than 35 minutes of critical care time on this case. Patient is currently in IMCU requiring a high level of care. Job#: [id number] RI
[2018-03-02] MEDS: CLOPIDOGREL BISULFATE 75 MG TAB PO SCH (10:35)
[2018-03-02] MEDS ORDERED: METHYLPREDNISOLONE SOD SUCC 40 MG/ML VIAL IV SCH ×2 (12:00→21:00)
[2018-03-02] MEDS ORDERED: INSULIN REGULAR, HUMAN 100 UNIT/1 ML 3ML VIAL SQ ONE ×2 (12:10→16:15)
[2018-03-02] MEDS: ALBUTEROL/IPRATROPIUM 3 ML NEB NEB PRN (12:45)
[2018-03-02] MEDS: GUAIFENESIN/CODEINE 10 ML CUP PO PRN ×2 (14:01→22:56)
[2018-03-02] MEDS ORDERED: ENOXAPARIN SOD INJ 40 MG/0.4 ML SYR SC ONE (15:30)
--- NOTE | 2018-03-02 16:27 | Consultation ---
DATE OF CONSULTATION: PULMONARY/CRITICAL CARE CONSULTATION REFERRING PHYSICIAN: Dr. Mcdaniel. CHIEF COMPLAINT: New onset of dyspnea and cough. HISTORY OF PRESENT ILLNESS: The patient is an 87-year-old man. He has a history of coronary artery disease with a prior automatic implanted defibrillator and pacemaker. He had a cardiac cath a week ago and had a stent placed in the left anterior descending artery. He did well after the procedure and went home the following day. One day after discharge, he noticed increased dyspnea as well as some cough. He thinks he had fever at home. He spoke to his primary care physician, but the symptoms did not cruzito and he came to the emergency department several days later. PAST SURGICAL HISTORY 1. Status post AICD and pacemaker placement. 2. Status post cardiac cath with stent placement. PAST MEDICAL HISTORY 1. Coronary artery disease. 2. Systolic congestive heart failure. 3. Obstructive sleep apnea. 4. Hypertension. FAMILY HISTORY: History of diabetes and hypertension. SOCIAL HISTORY: The patient is not a smoker or drinker. He lives with his . ALLERGIES: THE PATIENT IS ALLERGIC TO PENICILLIN. REVIEW OF SYSTEMS: He does report fevers. This was mainly at home. Since being in the hospital, he has not had any fevers. He notes cough. He does not complain of headache. He has no neck pain. He has no chest pain. He does note dyspnea. He has no abdominal pain. There is no nausea or vomiting. He does not complain of any leg swelling. He has no calf tenderness. PHYSICAL EXAMINATION VITAL SIGNS: The patient is afebrile. Blood pressure is slightly elevated at 139/90. His O2 saturation is 94% on 2 liters and his heart rate is 101. His respiratory rate is mildly increased at 24. HEENT: Examination shows no facial swelling or erythema. The nasal mucosa is normal. The oropharynx is normal. LYMPHATIC: Examination shows no submandibular, cervical or supraclavicular adenopathy. CARDIAC: Exam reveals a regular rate and rhythm with normal S1 and S2. There are no murmurs or rubs. LUNGS: Auscultation of the lungs reveals clear breath sounds bilaterally. There is no wheezing. ABDOMEN: Soft and nontender. There is no rebound or guarding. EXTREMITIES: Shows mild leg edema. NEUROLOGIC: Exam shows no focal abnormalities. LABORATORY DATA: White blood cell count is 8.1 and hemoglobin is 10.8. The platelet count is 200. The BUN to creatinine ratio is increased to 34 over 1.95. His baseline is 1.5. His blood sugars are in the 200 to 300 range. His BNP is 73. His troponin I is normal. His albumin is 3.4. RADIOGRAPHIC DATA: Chest x-ray shows a possible right lower lobe infiltrate. IMPRESSIONS 1. Acute onset of dyspnea with a right lower lobe infiltrate. 2. Acute on chronic systolic congestive heart failure. 3. Diabetes out of control. 4. Acute kidney injury. 5. Obstructive sleep apnea. PLANS 1. The patient will have a repeat PA and lateral chest x-ray along with a ventilation perfusion scan to rule out pulmonary embolism. 2. Continue Rocephin and Zithromax for possible right lower lobe pneumonia. 3. Swallowing evaluation to rule out any aspiration. 4. Diuresis and repeat echocardiogram. 5. Continue to monitor blood counts along with the BUN and creatinine. 6. Case discussed with patient as well as Dr. Mcdaniel. Job#: [id number] SACHIN
[2018-03-02] MEDS: GLIPIZIDE 5 MG TAB PO SCH (16:37)
--- NOTE | 2018-03-02 19:12 | Diagnostic Imaging Report ---
EXAMINATION: CHEST 2 VIEWS INDICATION: Left lower lobe infiltrate COMPARISON: 03/02/18. FINDINGS: TUBES and LINES: None. Left-sided pacemaker is unchanged in position. LUNGS: Patchy density in the left lung base posteriorly concerning for developing pneumonia in the proper clinical setting. Right basilar subsegmental atelectasis. PLEURA: No pleural effusion or pneumothorax. HEART AND MEDIASTINUM: The cardiac silhouette is mildly enlarged. BONES AND SOFT TISSUES: No acute osseous lesion. Soft tissues are unremarkable. UPPER ABDOMEN: No free air under the diaphragm. IMPRESSION: Patchy density in the left lung base posteriorly concerning for developing pneumonia in the proper clinical setting. Recommend follow-up chest PA and lateral views after treatment in 6-8 weeks to document resolution. Signed by: Dr. Abelino Kc M.D. on 03/02/2018 7:08 PM
--- NOTE | 2018-03-02 19:26 | Diagnostic Imaging Report ---
Ventilation/perfusion lung scan Clinical Information: 87 M with SOB/TOMPKINS x 4-5 days with cough and congestion; pneumonia - LLL infiltrate on chest radiograph. Comparison: Chest radiograph 03/02/2018 Discussion: Xenon-133 gas 7.6 mCi was administered via inhalation. Dynamic images of the lungs in the posterior projection were obtained through single breath, equilibrium, and washout phases. Distribution of tracer activity appears physiologic throughout the lungs. There are no segmental ventilatory defects. Washout of tracer is normal with no air trapping. Perfusion images of the lungs were obtained in multiple projections following intravenous administration of approximately 6.5 mCi of Tc-99m MAA. Distribution of tracer appears physiologic throughout the lungs. The contours of the lungs are well demarcated. There are no segmental perfusion defects of any size. The cardiomediastinal silhouette is mildly enlarged. Impression: Normal VQ scan. Scan findings represent a VERY LOW probability for acute pulmonary embolic disease based on the PIOPED II criteria. Mildly enlarged cardiac silhouette. Signed by: Dr. Amisha Law M.D. on 03/02/2018 7:22 PM
[2018-03-02] MEDS ORDERED: INSULIN DETEMIR 100 UNIT/ML PEN SQ ONE (21:00)
[2018-03-03] VITALS (8 sets, daily range): BP systolic 104–118; BP diastolic 50–59
[2018-03-03] MEDS: IPRATROPIUM BROMIDE 0.02% 2.5 ML NEB NEB SCH ×4 (02:25→19:00)
[2018-03-03] MEDS: CEFTRIAXONE SOD 1 GM VIAL IV SCH ×2 (03:14→03:20)
[2018-03-03] MEDS: GUAIFENESIN/CODEINE 10 ML CUP PO PRN ×2 (03:15→12:14)
[2018-03-03] MEDS: AZITHROMYCIN 500MG/SOD CHL 0.9% 250ML BAG IV SCH (04:45)
[2018-03-03 06:24] LABS: BASOPHILS % 0.3 % (0.0-1.0); EOSINOPHILS % 0.1 % (0.0-6.0); HEMATOCRIT 30.6 % (38.2-49.6); LYMPHOCYTES # (AUTO) 1.2 (1.0-3.2); LYMPHOCYTES % 13.6 % (18.0-39.1); MEAN CORPUSCULAR HEMOGLOBIN 31.5 pg (28-32); MEAN CORPUSCULAR HGB CONC 32.7 g/dL (31-35); MEAN CORPUSCULAR VOLUME 96.5 fL (81-99); MONOCYTES # (AUTO) 1.2 (0.2-0.8); MONOCYTES % 12.6 % (4.4-11.3); NEUTROPHILS # (AUTO) 6.6 (2.1-6.9); NEUTROPHILS % 72.9 % (38.7-80.0); PLATELET COUNT 217 x10e3/uL (140-360); RED BLOOD COUNT 3.17 x10e6/uL (4.3-5.7)
[2018-03-03 06:47] LABS: ALBUMIN 3.2 g/dL (3.5-5.0); ALBUMIN/GLOBULIN RATIO 0.9 (0.8-2.0); CALCIUM 9.1 mg/dL (8.4-10.2); CREATININE, SERUM 1.63 mg/dL (0.72-1.25)
[2018-03-03 07:43] LABS: MONOCYTES % (MANUAL) 9 % (3.4-9.0); NEUTROPHILS % (MANUAL) 73 % (40-74)
[2018-03-03 07:44] LABS: BAND NEUTROPHILS % (MANUAL) 3 %; LARGE PLATELETS FEW; LYMPHOCYTES % (MANUAL) 15 % (19-48); PLATELET ESTIMATE ADEQUATE; PLATELET MORPHOLOGY COMMENT FEW LARGE
[2018-03-03 07:45] LABS: RBC MORPHOLOGY COMMENT NORMAL
[2018-03-03] MEDS: OYST-CAL-D 500MG TABLET PO SCH (08:40)
[2018-03-03] MEDS: INSULIN REGULAR, HUMAN 100 UNIT/1 ML 3ML VIAL SQ SCH ×4 (08:40→20:18)
[2018-03-03] MEDS: CLOPIDOGREL BISULFATE 75 MG TAB PO SCH (08:40)
[2018-03-03] MEDS: ASPIRIN 325 MG TAB PO SCH (08:40)
[2018-03-03] MEDS: GLIPIZIDE 5 MG TAB PO SCH ×2 (08:40→17:40)
[2018-03-03] MEDS: METHYLPREDNISOLONE SOD SUCC 40 MG/ML VIAL IV SCH (08:40)
[2018-03-03] MEDS: CHOLECALCIFEROL 1,000 UNIT TAB PO SCH (08:40)
[2018-03-03] MEDS: LOSARTAN POTASSIUM 100 MG TAB PO SCH (08:40)
[2018-03-03] MEDS ORDERED: PIOGLITAZONE HCL 15 MG TAB PO SCH (09:00)
[2018-03-03] MEDS ORDERED: CLOPIDOGREL BISULFATE 75 MG TAB PO SCH (09:00)
[2018-03-03] MEDS: VITAMIN E 400 UNIT CAP PO SCH (09:00)
[2018-03-03] MEDS: ALBUTEROL/IPRATROPIUM 3 ML NEB NEB PRN ×2 (12:23→19:35)
[2018-03-03 12:56] LABS: ABG HCO3 23 mmol/L (23-28); ABG PCO2 36 mmHg (41-51); ABG PH 7.42 (7.31-7.41); ABG PO2 86 mmHg (80-105)
--- NOTE | 2018-03-03 14:38 | Progress Note ---
DATE: March 03, 2018 PULMONARY PROGRESS NOTE SUBJECTIVE: The patient had a ventilation perfusion scan yesterday that showed low probability for pulmonary embolism. He notes some improvement. He still has some dyspnea and cough. PHYSICAL EXAMINATION VITAL SIGNS: Patient is afebrile. The blood pressure is 104/53 and the pulse is 94. His respiratory rate is 22 and the saturation is 98% on 4 liters. HEENT: No facial swelling or erythema. The nasal mucosa is normal. LYMPHATIC: No submandibular, cervical, or supraclavicular adenopathy. CARDIAC: Regular rate and rhythm with normal S1 and S2. LUNGS: Auscultation of the lungs reveals rhonchi in both lung sands. ABDOMEN: Soft and nontender. There is no rebound or guarding. EXTREMITIES: No leg edema or calf tenderness. IMPRESSION 1. Community-acquired pneumonia with sepsis present on admission. 2. Pnwcg-ks-zdieajv systolic congestive heart failure. 3. Diabetes out of control. 4. Nsjde-ce-etayndv kidney injury. 5. Obstructive sleep apnea. PLAN 1. Continue current antibiotics. 2. Complete swallowing evaluation. 3. Continue to monitor and control blood sugars. 4. Repeat electrolytes and blood counts in the morning. Job#: [id number] RADHA
--- NOTE | 2018-03-03 14:56 | Progress Note ---
DATE: March 03, 2018 MEDICINE PROGRESS NOTE SUBJECTIVE: Patient is doing much better today with no issues. He is still having some productive cough with some wheezing on examination. PHYSICAL EXAMINATION VITAL SIGNS: Temperature is 97.9, pulse 84, respiratory rate is 20, blood pressure is 104/53, and pulse ox 98%. He is on 4 liters nasal cannula. GENERAL: Not in acute distress. Alert and oriented x3. Cooperative on examination. HEENT: Head: Normocephalic, atraumatic. Eyes: Pupils equal, round, and reactive to light bilaterally. Extraocular movements are intact bilaterally. NECK: Supple with good range of motion. THROAT: No evidence of any erythema or exudates in the posterior pharynx. Has poor dentition. PULMONARY: Has expiratory wheezing appreciated. Decreased breath sounds, but improving. Fine crackle is appreciated. CARDIOVASCULAR: Positive S1 and S2. No murmurs, rubs, or gallops appreciated. ABDOMEN: Soft, nondistended, nontender to palpation. Bowel sounds present. MUSCULOSKELETAL: Strength is 5/5 throughout. No evidence of any musculoskeletal deficits on examination. No weakness appreciated. NEUROLOGICAL: Cranial nerves II through XII are grossly intact. No evidence of any neurological deficits on exam. SKIN: Intact. Warm to touch. Good cap refill. PSYCHIATRIC: Normal affect and mood. EXTREMITIES: No edema. Good range of motion throughout. LABS: Show white count 9.1, hemoglobin 10, hematocrit is 31, and platelets of 217. Chemistry: Sodium 138, potassium 4, chloride 99, bicarb 25, anion gap of 18, BUN is 42, creatinine is 1.6, glucose is 262. LFTs were normal. Albumin 3.2. MICROBIOLOGY: Blood and urine cultures, no growth. IMAGING: V/Q scan was negative. Repeat chest x-ray shows multifocal pneumonia. IMPRESSION 1. Respiratory distress secondary to community-acquired pneumonia. 2. Community-acquired pneumonia with underlying acute bronchitis. 3. Chronic kidney disease stage 3. 4. Coronary artery disease, status post recent stent placement. 5. Type 2 diabetes. 6. Hypertension. PLAN: Continue with steroids and antibiotics. Blood and urine cultures, no growth. Continue with Robitussin with Codeine. Continue with cardioprotective meds due to recent cardiac stent placement. Currently, his vital signs are stable. Will continue with same home medications. Cardiology and pulmonary following accordingly. Will change patient to inpatient. He will likely be here for several more days if he is not even ready for discharge. Job#: [id number] RADHA
[2018-03-03] MEDS: PIOGLITAZONE HCL 15 MG TAB PO SCH (20:18)
[2018-03-04] VITALS (8 sets, daily range): BP systolic 108–136; BP diastolic 56–73
[2018-03-04] MEDS: IPRATROPIUM BROMIDE 0.02% 2.5 ML NEB NEB SCH ×4 (00:45→19:32)
[2018-03-04] MEDS ORDERED: SODIUM CHLORIDE 0.9% 250ML 250 ML ONE (03:15)
[2018-03-04] MEDS: AZITHROMYCIN 500MG/SOD CHL 0.9% 250ML BAG IV SCH (05:00)
[2018-03-04] MEDS: GUAIFENESIN/CODEINE 10 ML CUP PO PRN (05:42)
[2018-03-04 05:44] LABS: BASOPHILS % 0.3 % (0.0-1.0); EOSINOPHILS % 0.2 % (0.0-6.0); HEMATOCRIT 32.6 % (38.2-49.6); HEMOGLOBIN 10.5 g/dL (14.0-18.0); LYMPHOCYTES # (AUTO) 1.8 (1.0-3.2); LYMPHOCYTES % 14.5 % (18.0-39.1); MEAN CORPUSCULAR HEMOGLOBIN 31.2 pg (28-32); MEAN CORPUSCULAR HGB CONC 32.2 g/dL (31-35); MEAN CORPUSCULAR VOLUME 96.7 fL (81-99); MONOCYTES # (AUTO) 1.6 (0.2-0.8); MONOCYTES % 13.3 % (4.4-11.3); NEUTROPHILS # (AUTO) 8.6 (2.1-6.9); NEUTROPHILS % 70.6 % (38.7-80.0); PLATELET COUNT 246 x10e3/uL (140-360); RED BLOOD COUNT 3.37 x10e6/uL (4.3-5.7)
[2018-03-04 06:15] LABS: ALBUMIN 3.2 g/dL (3.5-5.0); ALBUMIN/GLOBULIN RATIO 0.8 (0.8-2.0); ANION GAP 17.2 mmol/L (8-16); CALCIUM 9.2 mg/dL (8.4-10.2); CREATININE, SERUM 1.27 mg/dL (0.72-1.25); POTASSIUM 4.2 mmol/L (3.5-5.1)
[2018-03-04] MEDS: INSULIN REGULAR, HUMAN 100 UNIT/1 ML 3ML VIAL SQ SCH ×4 (07:30→21:21)
[2018-03-04 08:42] LABS: BAND NEUTROPHILS % (MANUAL) 8 %; EOSINOPHILS % (MANUAL) 1 % (0-7); LYMPHOCYTES % (MANUAL) 22 % (19-48); MONOCYTES % (MANUAL) 14 % (3.4-9.0); NEUTROPHILS % (MANUAL) 55 % (40-74); PLATELET ESTIMATE ADEQUATE; PLATELET MORPHOLOGY COMMENT NORMAL; RBC MORPHOLOGY COMMENT NORMAL
[2018-03-04] MEDS: LOSARTAN POTASSIUM 100 MG TAB PO SCH (08:58)
[2018-03-04] MEDS: GLIPIZIDE 5 MG TAB PO SCH ×2 (08:58→17:19)
[2018-03-04] MEDS: CLOPIDOGREL BISULFATE 75 MG TAB PO SCH (08:58)
[2018-03-04] MEDS: PIOGLITAZONE HCL 15 MG TAB PO SCH (08:58)
[2018-03-04] MEDS: METHYLPREDNISOLONE SOD SUCC 40 MG/ML VIAL IV SCH (08:58)
[2018-03-04] MEDS: ASPIRIN 325 MG TAB PO SCH (08:58)
[2018-03-04] MEDS: OYST-CAL-D 500MG TABLET PO SCH (08:58)
[2018-03-04] MEDS: VITAMIN E 400 UNIT CAP PO SCH (08:58)
[2018-03-04] MEDS: CHOLECALCIFEROL 1,000 UNIT TAB PO SCH (08:58)
--- NOTE | 2018-03-04 10:11 | Progress Note ---
DATE: March 04, 2018 MEDICINE PROGRESS NOTE SUBJECTIVE: Patient is improving daily with no other issues. He is still coughing up some phlegm up. He reports feeling much better, sitting in a La-Z-Boy. He is still on oxygen during my evaluation. PHYSICAL EXAMINATION VITAL SIGNS: Temperature is 97.9, pulse 111, respiratory rate is 22, blood pressure is 136/73, and pulse ox 94% on 2 liters nasal cannula. GENERAL: Not in acute distress, alert and oriented x3. Cooperative on examination. HEENT: Head normocephalic, atraumatic. Eyes: Pupils equal, round, and reactive to light bilaterally. Extraocular movements are intact bilaterally. Throat: No evidence of any erythema or exudates in the posterior pharynx. Has poor dentition. NECK: Supple with good range of motion. PULMONARY: He has some expiratory wheezing appreciated in the right upper field of the lung. Breath sounds are good, coarse. He does have some rhonchi. Fine crackles appreciated. CARDIOVASCULAR: Positive S1 and S2. No murmurs, rubs, or gallops appreciated. ABDOMEN: Soft, nondistended, nontender to palpation. Bowel sounds present. MUSCULOSKELETAL: Strength is 5/5 throughout. No evidence of any musculoskeletal deficits on examination. No weakness appreciated. NEUROLOGICAL: There is no evidence of any neurological deficits on exam. SKIN: Intact. Warm to touch. Good cap refill. PSYCHIATRIC: Normal affect and mood. EXTREMITIES: No edema. Good range of motion throughout. LABORATORY FINDINGS: Show white count 12.2, hemoglobin 10.5, hematocrit is 32.6, and platelets of 246. Chemistry: Sodium 138, potassium 4.2, chloride 99, bicarb 23, anion gap of 17, BUN is 31, creatinine is 1.27 improving, glucose is 70. Albumin is 3.2. MICROBIOLOGY: Blood and urine cultures were all negative. IMPRESSION 1. Respiratory distress secondary to community-acquired pneumonia. 2. Community-acquired pneumonia with also underlying acute bronchitis. 3. Chronic kidney disease stage 3, improving. 4. Coronary artery disease, status post recent stent placement. 5. Type 2 diabetes. 6. Hypertension. PLAN: Continue with steroids, antibiotics, and neb treatments. Pulmonary is following accordingly. Blood and urine cultures, no growth. Continue with Robitussin with Codeine for cough. In relation to his cardiac issues, they are stable, continue with same medications including antiplatelets, Plavix and aspirin. He is currently doing much better, but still continues to be on oxygen, which will take time before he is able to be weaned off. We will continue to monitor him. He will likely be here for at least an additional 1 to 2 more days until improved. Job#: [id number] RADHA
[2018-03-05] VITALS (8 sets, daily range): BP systolic 126–153; BP diastolic 56–76
[2018-03-05] MEDS: IPRATROPIUM BROMIDE 0.02% 2.5 ML NEB NEB SCH ×4 (01:25→19:15)
[2018-03-05] MEDS: CEFTRIAXONE SOD 1 GM VIAL IV SCH (02:16)
[2018-03-05] MEDS: AZITHROMYCIN 500MG/SOD CHL 0.9% 250ML BAG IV SCH (04:55)
[2018-03-05 05:13] LABS: BASOPHILS # (AUTO) 0.1 (0.0-0.1); BASOPHILS % 0.6 % (0.0-1.0); EOSINOPHILS % 0.3 % (0.0-6.0); HEMATOCRIT 33.2 % (38.2-49.6); HEMOGLOBIN 10.9 g/dL (14.0-18.0); LYMPHOCYTES # (AUTO) 1.5 (1.0-3.2); LYMPHOCYTES % 12.7 % (18.0-39.1); MEAN CORPUSCULAR HEMOGLOBIN 32.1 pg (28-32); MEAN CORPUSCULAR HGB CONC 32.8 g/dL (31-35); MEAN CORPUSCULAR VOLUME 97.6 fL (81-99); MONOCYTES # (AUTO) 1.2 (0.2-0.8); MONOCYTES % 10.6 % (4.4-11.3); NEUTROPHILS # (AUTO) 8.7 (2.1-6.9); NEUTROPHILS % 74.2 % (38.7-80.0); PLATELET COUNT 247 x10e3/uL (140-360); RED CELL DISTRIBUTION WIDTH 13.2 % (11.7-14.4)
[2018-03-05 05:43] LABS: ANION GAP 16.1 mmol/L (8-16); CALCIUM 9.1 mg/dL (8.4-10.2); CREATININE, SERUM 1.25 mg/dL (0.72-1.25); POTASSIUM 4.1 mmol/L (3.5-5.1)
[2018-03-05] MEDS: GUAIFENESIN/CODEINE 10 ML CUP PO PRN (06:28)
[2018-03-05] MEDS: ACETAMINOPHEN 325 MG TAB PO PRN (06:28)
[2018-03-05] MEDS: VITAMIN E 400 UNIT CAP PO SCH (08:23)
[2018-03-05] MEDS: GLIPIZIDE 5 MG TAB PO SCH ×2 (08:23→16:17)
[2018-03-05] MEDS: PIOGLITAZONE HCL 15 MG TAB PO SCH (08:23)
[2018-03-05] MEDS: ASPIRIN 325 MG TAB PO SCH (08:23)
[2018-03-05] MEDS: METHYLPREDNISOLONE SOD SUCC 40 MG/ML VIAL IV SCH (08:23)
[2018-03-05] MEDS: CLOPIDOGREL BISULFATE 75 MG TAB PO SCH (08:23)
[2018-03-05] MEDS: OYST-CAL-D 500MG TABLET PO SCH (08:23)
[2018-03-05] MEDS: LOSARTAN POTASSIUM 100 MG TAB PO SCH (08:23)
[2018-03-05] MEDS: CHOLECALCIFEROL 1,000 UNIT TAB PO SCH (08:23)
[2018-03-05] MEDS: INSULIN REGULAR, HUMAN 100 UNIT/1 ML 3ML VIAL SQ SCH ×4 (08:24→21:00)
--- NOTE | 2018-03-05 10:52 | Progress Note ---
DATE: March 05, 2018 MEDICINE PROGRESS NOTE SUBJECTIVE: Patient reports feeling much better today. He still has significant cough. He still requires a lot of oxygen, which I have discussed with the nurse to try to wean him off. For some reason, he was on regular diet yesterday in the morning and then converted to clear liquids, which I will go ahead and change. OBJECTIVE VITAL SIGNS: Temperature is 96.4, pulse 118, respiratory rate 26, blood pressure 126/67, pulse ox 95% on 3 liters nasal cannula. LAB FINDINGS: White count 11.7, hemoglobin 10.9, hematocrit 33, platelets 247. Sodium 135, potassium 4.1, chloride 99, bicarb 24, anion gap 16, BUN 25, creatinine 1.25, glucose 126, albumin 3.2. SEROLOGY: Influenza negative. Legionella is pending. MICROBIOLOGY: Blood and urine cultures are negative. IMAGING STUDIES: None. PHYSICAL EXAMINATION GENERAL: Not in acute distress, alert and oriented x3. Cooperative on examination. HEENT: Head is normocephalic and atraumatic. Eyes: Pupils are equal, round, and reactive to light bilaterally. Extraocular movements are intact bilaterally. NECK: Supple with good range of motion. THROAT: No evidence of any erythema and exudates in the posterior pharynx, has poor dentition. PULMONARY: Clear to auscultation bilaterally. No wheezing, no rales, no rhonchi, no crackles appreciated. CARDIOVASCULAR: Positive S1 and S2. No murmurs, rubs, or gallops appreciated. ABDOMEN: Soft, nondistended, nontender to palpation. Bowel sounds present. MUSCULOSKELETAL: Strength is 5/5 throughout. No evidence of any musculoskeletal deficits on examination. No weakness appreciated. NEUROLOGICAL: Cranial nerves II through XII are grossly intact. No evidence of any neurological deficits on exam. SKIN: Intact. Warm to touch. Good cap refill. PSYCHIATRIC: Normal affect and mood. EXTREMITIES: No edema. Good range of motion throughout. IMPRESSION 1. Respiratory distress secondary to community-acquired pneumonia. 2. Community-acquired pneumonia with underlying acute bronchitis. 3. Chronic kidney disease, stage 3. 4. Coronary artery disease, status post recent stent placement. 5. Type-2 diabetes. 6. Hypertension. PLAN: Continue with steroids, antibiotics, and neb treatments. Pulmonary is following. Blood cultures and urine cultures all no growth. Continue with antitussive medication. Our goal is to try to wean him off of oxygen. If not, we will need to order oxygen, which I discussed this with the nurse in order for them to discuss this with case management. Will continue with dual antiplatelet therapy as per cardiology's recommendations. If we are able to wean him off, he will likely be discharged tomorrow. If not, he will need home O2. Job#: [id number]
[2018-03-06] VITALS (8 sets, daily range): BP systolic 128–153; BP diastolic 57–86
[2018-03-06] MEDS: IPRATROPIUM BROMIDE 0.02% 2.5 ML NEB NEB SCH ×4 (01:50→19:45)
[2018-03-06] MEDS: CEFTRIAXONE SOD 1 GM VIAL IV SCH (02:05)
[2018-03-06] MEDS ORDERED: CEFTRIAXONE SOD 1 GM/NS 50 ML 50 ML IV SCH (03:00)
[2018-03-06] MEDS: AZITHROMYCIN 500MG/SOD CHL 0.9% 250ML BAG IV SCH (04:40)
[2018-03-06 05:09] LABS: BASOPHILS % 0.3 % (0.0-1.0); EOSINOPHILS # (AUTO) 0.1 (0.0-0.4); EOSINOPHILS % 0.7 % (0.0-6.0); HEMATOCRIT 32.4 % (38.2-49.6); HEMOGLOBIN 10.6 g/dL (14.0-18.0); LYMPHOCYTES # (AUTO) 2.1 (1.0-3.2); LYMPHOCYTES % 20.3 % (18.0-39.1); MEAN CORPUSCULAR HEMOGLOBIN 31.5 pg (28-32); MEAN CORPUSCULAR HGB CONC 32.7 g/dL (31-35); MEAN CORPUSCULAR VOLUME 96.4 fL (81-99); MONOCYTES # (AUTO) 1.3 (0.2-0.8); MONOCYTES % 12.5 % (4.4-11.3); NEUTROPHILS # (AUTO) 6.5 (2.1-6.9); NEUTROPHILS % 61.5 % (38.7-80.0); PLATELET COUNT 267 x10e3/uL (140-360); RED BLOOD COUNT 3.36 x10e6/uL (4.3-5.7)
[2018-03-06 05:34] LABS: ANION GAP 15.5 mmol/L (8-16); CALCIUM 9.4 mg/dL (8.4-10.2); CREATININE, SERUM 1.35 mg/dL (0.72-1.25); POTASSIUM 4.5 mmol/L (3.5-5.1)
[2018-03-06 07:01] LABS: LYMPHOCYTES % (MANUAL) 23 % (19-48); MONOCYTES % (MANUAL) 10 % (3.4-9.0); NEUTROPHILS % (MANUAL) 67 % (40-74)
[2018-03-06 07:02] LABS: ANISOCYTOSIS MODERATE; PLATELET ESTIMATE ADEQUATE; PLATELET MORPHOLOGY COMMENT NORMAL; POIKILOCYTOSIS S; RBC MORPHOLOGY COMMENT ABNORMAL
[2018-03-06 07:03] LABS: POLYCHROMASIA S
[2018-03-06] MEDS: INSULIN REGULAR, HUMAN 100 UNIT/1 ML 3ML VIAL SQ SCH ×4 (07:30→21:00)
[2018-03-06] MEDS: METHYLPREDNISOLONE SOD SUCC 40 MG/ML VIAL IV SCH (08:24)
[2018-03-06] MEDS: VITAMIN E 400 UNIT CAP PO SCH (08:24)
[2018-03-06] MEDS: ASPIRIN 325 MG TAB PO SCH (08:24)
[2018-03-06] MEDS: GLIPIZIDE 5 MG TAB PO SCH ×2 (08:24→16:45)
[2018-03-06] MEDS: PIOGLITAZONE HCL 15 MG TAB PO SCH (08:24)
[2018-03-06] MEDS: OYST-CAL-D 500MG TABLET PO SCH (08:24)
[2018-03-06] MEDS: CHOLECALCIFEROL 1,000 UNIT TAB PO SCH (08:24)
[2018-03-06] MEDS: LOSARTAN POTASSIUM 100 MG TAB PO SCH (08:24)
[2018-03-06] MEDS: CLOPIDOGREL BISULFATE 75 MG TAB PO SCH (08:24)
[2018-03-06] MEDS: GUAIFENESIN/CODEINE 10 ML CUP PO PRN (10:16)
--- NOTE | 2018-03-06 17:37 | Progress Note ---
DATE: March 06, 2018 MEDICINE PROGRESS NOTE SUBJECTIVE: Patient is doing well today with no other issues. He is still coughing up phlegm. He still on 2 L nasal cannula. VITAL SIGNS: Temperature is 96.6, pulse 96, respiratory rate is 18, blood pressure is 142/67, pulse ox 98% on 2 L nasal cannula. LAB FINDINGS: White count is 10.5, hemoglobin 10.6, hematocrit 32, platelets of 267,000. Chemistry, sodium 139, potassium 4.5, chloride 101, bicarb 27, anion gap of 15, BUN is 31, creatinine is 1.35. Glucose is 65, but hnmfv-[id number] glucose is now 270, calcium is 9.4. Microbiology, blood and urine cultures were found to be negative. PHYSICAL EXAM GENERAL: In no acute distress, alert and oriented x3. Cooperative on examination. HEENT: Head is normocephalic and atraumatic. Eyes: Pupils are equal, round, and reactive to light bilaterally. Extraocular movements are intact bilaterally. NECK: Supple with good range of motion. THROAT: No evidence of any erythema and exudates in the posterior pharynx, has poor dentition. PULMONARY: Clear to auscultation bilaterally. No wheezing, no rales, no rhonchi, no crackles appreciated. CARDIOVASCULAR: Positive S1 and S2. No murmurs, rubs, or gallops appreciated. ABDOMEN: Soft, nondistended, nontender to palpation. Bowel sounds present. MUSCULOSKELETAL: Strength is 5/5 throughout. No evidence of any musculoskeletal deficits on examination. No weakness appreciated. NEUROLOGICAL: Cranial nerves II through XII are grossly intact. No evidence of any neurological deficits on exam. SKIN: Intact. Warm to touch. Good cap refill. PSYCHIATRIC: Normal affect and mood. EXTREMITIES: No edema. Good range of motion throughout. IMPRESSIONS 1. Respiratory distress secondary to community-acquired pneumonia. 2. Community-acquired pneumonia with underlying acute bronchitis. 3. Chronic kidney disease, stage 3. 4. Coronary artery disease, status post recent stent placement. 5. Type-2 diabetes. 6. Hypertension. PLAN: At this time, continue with steroids, antibiotics, and neb treatments. Pulmonary is following. I am having difficult time trying to wean him off of oxygen. He is still on 2 L nasal cannula 98% setting. We will have to wait for him until he is weaned off of oxygen. I discussed this with the nursing staff. Continue with antitussive medications. Continue with ambulation with PT and OT. Continue to follow with cardiology recommendations. If the patient is off of oxygen tomorrow, patient will be discharged home. Job#: [id number] CQ
[2018-03-07] VITALS (8 sets, daily range): BP systolic 127–142; BP diastolic 59–71
[2018-03-07] MEDS: IPRATROPIUM BROMIDE 0.02% 2.5 ML NEB NEB SCH ×4 (01:30→19:00)
[2018-03-07] MEDS: CEFTRIAXONE SOD 1 GM VIAL IV SCH (03:16)
[2018-03-07] MEDS: AZITHROMYCIN 500MG/SOD CHL 0.9% 250ML BAG IV SCH (04:24)
[2018-03-07] MEDS: METHYLPREDNISOLONE SOD SUCC 40 MG/ML VIAL IV SCH (08:43)
[2018-03-07] MEDS: PIOGLITAZONE HCL 15 MG TAB PO SCH (08:43)
[2018-03-07] MEDS: ASPIRIN 325 MG TAB PO SCH (08:43)
[2018-03-07] MEDS: GLIPIZIDE 5 MG TAB PO SCH ×2 (08:43→15:39)
[2018-03-07] MEDS: LOSARTAN POTASSIUM 100 MG TAB PO SCH (08:43)
[2018-03-07] MEDS: CLOPIDOGREL BISULFATE 75 MG TAB PO SCH (08:44)
[2018-03-07] MEDS: VITAMIN E 400 UNIT CAP PO SCH (08:44)
[2018-03-07] MEDS: CHOLECALCIFEROL 1,000 UNIT TAB PO SCH (08:44)
[2018-03-07] MEDS: OYST-CAL-D 500MG TABLET PO SCH (08:44)
[2018-03-07] MEDS: INSULIN REGULAR, HUMAN 100 UNIT/1 ML 3ML VIAL SQ SCH ×4 (08:45→21:00)
[2018-03-07] MEDS: ACETAMINOPHEN 325 MG TAB PO PRN (15:39)
--- NOTE | 2018-03-07 17:36 | Progress Note ---
DATE: March 07, 2018 MEDICINE PROGRESS NOTE SUBJECTIVE: The patient is doing much better today with no other issues. He . He has very little cough. He has had no sputum production. He was in the process of being discharged today, but his glucose level was close to 500. He will need to stay overnight. OBJECTIVE VITAL SIGNS: Temperature 96.9, pulse 97, respiratory rate is 20, blood pressure is 135/61, pulse ox 94% on room air. GENERAL: Not in acute distress. Alert and oriented times 3. Cooperative on examination. HEENT: Head is normocephalic and atraumatic. Eyes: Pupils equal, round and reactive to light bilaterally. Extraocular movements intact bilaterally. NECK: Supple. Good range of motion. Throat with no evidence of any erythema or exudates in the posterior pharynx. Has poor dentition. PULMONARY: Clear to auscultation bilaterally. No wheezing. No rales. No rhonchi. No crackles appreciated. CARDIOVASCULAR: Positive S1 and S2. No murmurs, rubs or gallops appreciated. ABDOMEN: Soft, nondistended and nontender to palpation. Bowel sounds present. MUSCULOSKELETAL: Strength is 5/5 throughout. No evidence of any muscle deficit on examination. No weakness appreciated. NEUROLOGICAL: Cranial nerves II-XII are grossly intact. No evidence of any neurological deficits on exam. SKIN: Intact. Warm to touch. Good cap refill. PSYCHIATRIC: Normal affect and mood. EXTREMITIES: No edema. Good range of motion throughout. LAB FINDINGS: Show white count of 10.5, hemoglobin 10.3, hematocrit is 32, and platelets of 267,000. Chemistry is normal. Point of care glucose was close to 500. MICROBIOLOGY: None. IMPRESSION 1. Respiratory distress secondary to community-acquired pneumonia: Now improving. 2. Community-acquired pneumonia with acute bronchitis. 3. Chronic kidney disease, stage 3. 4. Coronary artery disease: Status post stent placement. 5. Type 2 diabetes. 6. Hypertension. 7. Hyperglycemia secondary to steroids. PLAN: At this time, we are going to continue with antibiotics and neb treatments. He was in the process of being discharged today, but his glucose level was close to 500 this evening in which he will need to stay overnight. He was given insulin 26 units now. Will evaluate his sugar in the morning. If his sugars are much improved, will discharged him first thing in the morning. I will give him scripts for antibiotics. 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 Job#: [id number] ALFREDO
[2018-03-07] MEDS: ALBUTEROL/IPRATROPIUM 3 ML NEB NEB PRN (21:30)
[2018-03-08] MEDS: IPRATROPIUM BROMIDE 0.02% 2.5 ML NEB NEB SCH ×2 (01:00→06:55)
[2018-03-08 01:25] VITALS: BP 139/66
[2018-03-08] MEDS: ALBUTEROL/IPRATROPIUM 3 ML NEB NEB PRN (02:00)
[2018-03-08] MEDS: CEFTRIAXONE SOD 1 GM VIAL IV SCH (04:37)
[2018-03-08] MEDS: AZITHROMYCIN 500MG/SOD CHL 0.9% 250ML BAG IV SCH (04:57)
[2018-03-08 06:20] VITALS: BP 147/70
[2018-03-08 08:00] VITALS: BP 140/81
[2018-03-08] MEDS: ASPIRIN 325 MG TAB PO SCH (08:09)
[2018-03-08] MEDS: PIOGLITAZONE HCL 15 MG TAB PO SCH (08:09)
[2018-03-08] MEDS: GLIPIZIDE 5 MG TAB PO SCH (08:09)
[2018-03-08] MEDS: CLOPIDOGREL BISULFATE 75 MG TAB PO SCH (08:09)
[2018-03-08] MEDS: LOSARTAN POTASSIUM 100 MG TAB PO SCH (08:09)
[2018-03-08] MEDS: OYST-CAL-D 500MG TABLET PO SCH (08:09)
[2018-03-08] MEDS: CHOLECALCIFEROL 1,000 UNIT TAB PO SCH (08:10)
[2018-03-08] MEDS: VITAMIN E 400 UNIT CAP PO SCH (08:10)
[2018-03-08] MEDS: INSULIN REGULAR, HUMAN 100 UNIT/1 ML 3ML VIAL SQ SCH (08:19)
[2018-03-08 08:30] VITALS: BP 140/81
--- NOTE | 2018-03-08 09:05 | Progress Note ---
DATE: SUBJECTIVE: The patient has less congestion and less wheezing. He feels better, but his blood sugar was elevated last night, which delayed his discharge. OBJECTIVE VITALS: Blood pressure is 147/70 and the saturation is 96% on 2 L. The pulse is 91. HEENT: Shows no facial swelling or erythema. The nasal mucosa is normal. The oropharynx is normal. LYMPHATIC: Shows no submandibular, cervical or supraclavicular adenopathy. CARDIAC: Reveals a regular rate and rhythm with a normal S1 and S2. There are no murmurs or rubs. LUNGS: Auscultation of lungs reveals clear breath sounds bilaterally. There is no wheezing. ABDOMEN: Soft and nontender. There is no rebound or guarding. EXTREMITIES: Shows no leg edema or calf tenderness. There is no cyanosis or clubbing. IMPRESSION 1. Community-acquired pneumonia with sepsis present on admission. 2. Diabetes out of control. 3. Severe obesity with a body mass index of 44. 4. Obstructive sleep apnea. 5. Coronary artery disease. 6. Chronic renal insufficiency, stage 3. PLAN 1. Discharge the patient home on 5 days of additional antibiotics. 2. Outpatient sleep study has already been arranged. 3. Adjust diabetic medications and follow up with Dr. Garcia. Job#: [id number] ALFREDO
--- NOTE | 2018-03-08 15:34 | Discharge Summary ---
FINAL DISCHARGE DIAGNOSES 1. Respiratory distress secondary to community-acquired pneumonia. 2. Acute bronchitis. 3. Community-acquired pneumonia. 4. Chronic kidney disease, stage 3. 5. Coronary artery disease, status post recent stent placement. 6. Type 2 diabetes. 7. Hypertension. CONSULTANTS: We had cardiology and pulmonary. VITAL SIGNS: Temperature 96.9, pulse 72, respiratory is 20, blood pressure 140/81, pulse ox 94%. He is on room air. LAB FINDINGS: Show white count 10.5, hemoglobin 10.8, hematocrit 32, and platelets of 267,000. Chemistry were found to be normal. LFTs were normal. Albumin was 3.2. IMAGING STUDIES: V/Q scan was negative. Chest x-ray showed evidence of multifocal pneumonia. MICROBIOLOGY: Blood and urine cultures were negative. HOSPITAL COURSE: This is an 87-year-old male who came into the ED with complaints of shortness of breath, cough, congestion, and productive phlegm. Patient was admitted and started on IV antibiotics. All cultures were found to be negative. Pulmonary and cardiology was consulted. Patient improved throughout the hospital course. He did have hyperglycemia secondary to steroids, but improved after given insulin. Patient will be discharged on oral antibiotics to complete 14 total days. He needs to follow up with pulmonary in about 7-10 days. Patient improved throughout the hospital course. On the day of discharge, vital signs stable. Labs reviewed and stable. The patient was seen and evaluated and examined thoroughly on the day of discharge. No other complaints. The patient verbalized understanding and agreed to plan of care to follow up with me as an outpatient and with the primary care physician in 1 week, and pulmonary in 7-10 days. MEDICATIONS: See med reconciliation form. The patient will be discharged on Omnicef 300 mg 1 tab p.o. b.i.d. for 5 additional more days. DISPOSITION: Home. CONDITION: Stable. DIET: Heart-healthy. In the event of any worsening symptoms, the patient was advised to come back to the ED for further evaluation. Discharge summary took greater than 35 minutes. SAMRA YAN MD Job#: [id number] ALFREDO
== END 2018-03-08 10:09 | disposition home or self-care (01) | DRG 871 ==
LOC: ER 02:09 → ERHOLD 03:48 → OBSVTOIN 03:48 → IMCU 04:55 → MED/SURG 20:39 → MED/SURG2 03-03 20:54
PROVIDERS: ADMIT Internal Medicine; ATTEND Internal Medicine
DX: A41.9 Sepsis, unspecified organism (principal); J18.9 Pneumonia, unspecified organism; J80 Acute respiratory distress syndrome; I50.23 Acute on chronic systolic (congestive) heart failure; Z68.41 Body mass index [BMI] 40.0-44.9, adult; I13.0 Hypertensive heart and chronic kidney disease with heart failure and stage 1 through stage 4 chronic kidney disease, or unspecified chronic kidney disease; N17.9 Acute kidney failure, unspecified; I25.10 Atherosclerotic heart disease of native coronary artery without angina pectoris; E66.01 Morbid (severe) obesity due to excess calories; E11.22 Type 2 diabetes mellitus with diabetic chronic kidney disease; Z79.4 Long term (current) use of insulin; E11.65 Type 2 diabetes mellitus with hyperglycemia; G47.33 Obstructive sleep apnea (adult) (pediatric); J20.9 Acute bronchitis, unspecified; Z95.810 Presence of automatic (implantable) cardiac defibrillator; R65.20 Severe sepsis without septic shock; Z95.5 Presence of coronary angioplasty implant and graft; N18.3 Chronic kidney disease, stage 3 (moderate); T38.7X5A Adverse effect of androgens and anabolic congeners, initial encounter
CPT/HCPCS: 36415; 36600; 71045; 71046; 78582; 80048; 80053; 82550; 82553; 82805; 82948; 83518; 83605; 83880; 84484; 85025; 87040; 87086; 87400; 87449; 93005; 93306; 94640; 94760; 96372; 97139; 99284; A9540; A9558; J0456; J0696; J1650; J1940; J2920; J2930; J7030; J7050

== ENCOUNTER 2018-10-03 10:24 | Emergency (ER) | payer MEDICARE ==
[~2018-10-03] VITALS: Ht 154.4 cm; Wt 105.2 kg
[~2018-10-03 10:24] MED LIST changes: +CALCIUM CARBON500 MG PO; +PREDNISONE5 MG PO; +TESSALON PERLE100 MG PO
[2018-10-03] MEDS ORDERED: LIDOCAINE VISC 2% SOLN 15 ML UDC PO ONE (11:00)
[2018-10-03 12:54] VITALS: BP 165/93
== END 2018-10-03 12:55 | disposition home or self-care (01) ==
LOC: ER 10:24
DX: J02.9 Acute pharyngitis, unspecified (principal); I10 Essential (primary) hypertension; E11.9 Type 2 diabetes mellitus without complications; I25.10 Atherosclerotic heart disease of native coronary artery without angina pectoris; I50.9 Heart failure, unspecified; E78.5 Hyperlipidemia, unspecified; Z95.5 Presence of coronary angioplasty implant and graft
CPT/HCPCS: 99282

== ENCOUNTER 2019-03-02 17:29 | Inpatient (IN) | payer MEDICARE ==
[~2019-03-02] VITALS: Ht 172.7 cm; Wt 104.3 kg
[2019-03-02] MEDS ORDERED: ASPIRIN 81 MG CHEW TAB PO ONE (18:00)
[2019-03-02 18:30] LABS: BASOPHILS # (AUTO) 0.1 (0.0-0.1); BASOPHILS % 0.8 % (0.0-1.0); EOSINOPHILS # (AUTO) 0.1 (0.0-0.4); EOSINOPHILS % 1.4 % (0.0-6.0); HEMATOCRIT 33.6 % (38.2-49.6); LYMPHOCYTES # (AUTO) 2.2 (1.0-3.2); LYMPHOCYTES % 33.9 % (18.0-39.1); MEAN CORPUSCULAR HEMOGLOBIN 31.6 pg (28-32); MEAN CORPUSCULAR HGB CONC 32.7 g/dL (31-35); MEAN CORPUSCULAR VOLUME 96.6 fL (81-99); MONOCYTES % 15.7 % (4.4-11.3); NEUTROPHILS # (AUTO) 3.1 (2.1-6.9); NEUTROPHILS % 47.6 % (38.7-80.0); PLATELET COUNT 213 x10e3/uL (140-360); RED BLOOD COUNT 3.48 x10e6/uL (4.3-5.7); RED CELL DISTRIBUTION WIDTH 13.4 % (11.7-14.4)
[2019-03-02] MEDS ORDERED: DEXTROSE 50% SYRINGE 50 ML IV PRN (18:30)
[2019-03-02 18:40] LABS: INR 0.92; PARTIAL THROMBOPLASTIN TIME 29.7 seconds (23.8-35.5); PROTHROMBIN TIME 12.8 seconds (11.9-14.5)
[2019-03-02 18:50] LABS: ALBUMIN 3.7 g/dL (3.5-5.0); ALBUMIN/GLOBULIN RATIO 1.4 (0.8-2.0); ANION GAP 18.1 mmol/L (8-16); CALCIUM 9.3 mg/dL (8.4-10.2); CREATININE, SERUM 1.57 mg/dL (0.72-1.25); POTASSIUM 4.1 mmol/L (3.5-5.1)
[2019-03-02 18:56] LABS: CREATINE KINASE MB 8.2 ng/mL (0-5.0)
--- NOTE | 2019-03-02 18:57 | Diagnostic Imaging Report ---
EXAMINATION: CHEST SINGLE (PORTABLE) INDICATION: Chest pain. COMPARISON: Chest radiograph 03/02/2018. FINDINGS: TUBES and LINES: Left-sided pacemaker is unchanged in position. LUNGS: Low lung volumes with patchy bibasilar opacities. Central vascular congestion without pulmonary edema. PLEURA: No pleural effusion or pneumothorax. HEART AND MEDIASTINUM: The cardiac silhouette is mildly enlarged. BONES AND SOFT TISSUES: No acute osseous abnormality. UPPER ABDOMEN: No free air under the diaphragm. IMPRESSION: Low lung volumes with patchy bibasilar opacities, likely atelectasis. Signed by: Dr. Sandy Ceron MD on 03/02/2019 6:54 PM
[2019-03-02] MEDS ORDERED: HEPARIN SOD (PORCINE) 5,000 UNIT/ML VIAL IV ONE (20:00)
[2019-03-02] MEDS ORDERED: HEPARIN 25,000 UNIT DRIP IV ONE (20:18)
[2019-03-02] MEDS: FAMOTIDINE 20 MG/2 ML VIAL IV SCH (20:45)
[2019-03-02] MEDS: HEPARIN 25,000 UNIT/D5W 250ML 250 ML IV SCH (20:46)
--- NOTE | 2019-03-02 21:35 | NUR ---
Pt received from ER via stretcher to [facility] room 187. Pt AAOx3 and following simple commands. Pt accompanied by his , son, and [id number]. Pt ambulated from stretcher to the bed with assistance. Pt reports no pain or discomfort at this time. Pt on 2L n/c with with noted SOB while ambulated but subsided upon resting in bed. Heparin gtt infusing per protocol. Richard STRINGER to assume care of the pt at this time.
[2019-03-02 21:47] VITALS: BP 121/71
[2019-03-02] MEDS: INSULIN LISPRO 100 UNIT/1 ML 3ML VIAL SQ SCH (21:53)
[2019-03-02] MEDS: NITROGLYCERIN 0.4 MG SUBL SL PRN (21:58)
[2019-03-02 22:00] VITALS: BP 121/71
[2019-03-02 22:05] VITALS: BP 121/71
[2019-03-03] VITALS (7 sets, daily range): BP systolic 127–154; BP diastolic 70–95
--- NOTE | 2019-03-03 00:10 | NUR ---
patient in bed, resting, eyes closed, no distress noted. vitals checked, bed alarm is on, will continue to monitor.
--- NOTE | 2019-03-03 00:58 | NUR ---
sent blood sample for PTT and cardiac markers to lab.
[2019-03-03 01:59] LABS: CREATINE KINASE MB 8.7 ng/mL (0-5.0)
--- NOTE | 2019-03-03 02:03 | NUR ---
PTT result came back 94.9; decreased Heparin by 100 units/hr.
[2019-03-03] MEDS: MORPHINE SULFATE 2 MG/ML SYR 1ML IV PRN ×2 (02:34→20:55)
--- NOTE | 2019-03-03 05:13 | NUR ---
just sent urine sample to lab; patient is awake right now, no distress noted.
--- NOTE | 2019-03-03 06:22 | NUR ---
called and left a message to to Kelechi, and made him aware about last night Troponin result. awaiting for call back if any orders.
[2019-03-03 06:24] LABS: BASOPHILS # (AUTO) 0.1 (0.0-0.1); BASOPHILS % 0.9 % (0.0-1.0); EOSINOPHILS # (AUTO) 0.1 (0.0-0.4); EOSINOPHILS % 1.6 % (0.0-6.0); HEMATOCRIT 35.1 % (38.2-49.6); HEMOGLOBIN 11.5 g/dL (14.0-18.0); LYMPHOCYTES # (AUTO) 2.9 (1.0-3.2); LYMPHOCYTES % 38.4 % (18.0-39.1); MEAN CORPUSCULAR HEMOGLOBIN 32.1 pg (28-32); MEAN CORPUSCULAR HGB CONC 32.8 g/dL (31-35); MONOCYTES % 13.4 % (4.4-11.3); NEUTROPHILS # (AUTO) 3.4 (2.1-6.9); NEUTROPHILS % 44.8 % (38.7-80.0); PLATELET COUNT 216 x10e3/uL (140-360); RED BLOOD COUNT 3.58 x10e6/uL (4.3-5.7); RED CELL DISTRIBUTION WIDTH 13.5 % (11.7-14.4)
[2019-03-03] MEDS: FAMOTIDINE 20 MG/2 ML VIAL IV SCH ×2 (06:46→19:42)
--- NOTE | 2019-03-03 06:47 | NUR ---
last PTT is 60.9; Heparin drip rate not changed.
[2019-03-03 06:51] LABS: ALBUMIN 3.9 g/dL (3.5-5.0); ALBUMIN/GLOBULIN RATIO 1.4 (0.8-2.0); ANION GAP 17.7 mmol/L (8-16); CALCIUM 9.7 mg/dL (8.4-10.2); CHOL/HDL RATIO 2.1 (3.9-4.7); CREATININE, SERUM 1.68 mg/dL (0.72-1.25); POTASSIUM 4.7 mmol/L (3.5-5.1)
[2019-03-03] MEDS: ALBUTEROL/IPRATROPIUM 3 ML NEB NEB PRN (07:00)
[2019-03-03 07:02] LABS: CLARITY,URINE TURBID (CLEAR); COLOR,URINE YELLOW (YELLOW)
[2019-03-03 07:03] LABS: CREATINE KINASE MB 7.7 ng/mL (0-5.0)
[2019-03-03 07:03] LABS: BILIRUBIN,URINE NEGATIVE (NEGATIVE); KETONES,URINE NEGATIVE (NEGATIVE); LEUKOCYTE ESTERASE ,URINE MODERATE (NEGATIVE); NITRITE,URINE NEGATIVE (NEGATIVE); PROTEIN,URINE DIPSTICK NEGATIVE (NEGATIVE); RBC,URINE 0-5 /HPF (0-5); URINE UROBILINOGEN 0.2 mg/dL (0.2 - 1); WBC,URINE (MAN) 21-50 /HPF (0-5)
[2019-03-03 07:04] LABS: BACTERIA,URINE FEW /HPF; EPITHELIAL CELLS,URINE RARE /LPF
--- NOTE | 2019-03-03 08:07 | NUR ---
Called Dr. Zay Lorenz, answering service to report troponin level, 1.405 wating for call back
[2019-03-03] MEDS: ASPIRIN 325 MG TAB EC PO SCH (08:32)
[2019-03-03] MEDS: INSULIN LISPRO 100 UNIT/1 ML 3ML VIAL SQ SCH ×4 (08:34→20:08)
--- NOTE | 2019-03-03 09:01 | NUR ---
H&P cc: CP/SOB HPI: 88yoM, PCP , developed sob/substernal cp and dizziness. Last stress test 1 yr ago. PAST MEDICAL HISTORY: PNA, CKD3 due to DM2, HTN, Morbid obesity, CAD s/p stent, BPPV, SURGICAL HISTORY: Coronary stent, FAMILY HISTORY: Hypertension and diabetes. SOCIAL HISTORY: No drugs. No alcohol. Does not smoke. Good social support. He is . Meds; see MAR ROS: no f/c/s/N/V/D/PETERSEN/vision changes/skin rash/confusion/agitation/back pain v/s; revd PE tired appearing anicteric ns1s2 mod bs soft nt nd no e/t skin dry n. affect a&ox3; wheeler labs/meds revd A/P: NSTEMI CAD with hx stent CKD3 due to DM2 Morbid obesity BMI 35 HTN HLD PLAN Heparin gtt; echo; cardio eval; Restart home meds Prop: heparin/pepcid dispo f/u Johnny Soto MD, PhD.
[2019-03-03] MEDS ORDERED: CLOPIDOGREL BISULFATE 75 MG TAB PO ONE (12:45)
[2019-03-03 14:47] LABS: CREATINE KINASE MB 12.2 ng/mL (0-5.0)
[2019-03-03] MEDS ORDERED: NAPROXEN250 MG PO (15:08)
[2019-03-03] MEDS ORDERED: MAGNESIUM OXID400 MG PO (15:08)
[2019-03-03] MEDS ORDERED: METFORMIN HCL500 M2 PO (15:22)
[2019-03-03] MEDS ORDERED: PIOGLITAZONE30 MG PO (15:22)
[2019-03-03] MEDS ORDERED: CHLORTHALIDONE25 MG PO (15:22)
[2019-03-03] MEDS ORDERED: CARVEDILOL3.125 MG PO (15:22)
[2019-03-03] MEDS ORDERED: PLAVIX75 MG PO (15:25)
[2019-03-03] MEDS ORDERED: ASPIR 8181 MG PO (15:26)
[2019-03-03] MEDS ORDERED: ATORVASTATIN CA20 MG PO (15:29)
[2019-03-03] MEDS ORDERED: [UNRECOGNIZED DRUG - OTHER] (15:33)
[2019-03-03] MEDS ORDERED: CITALOPRAM HBR20 MG PO (15:35)
[2019-03-03] MEDS ORDERED: CYCLOBENZAPRINE 5 MG (15:48)
[2019-03-03] MEDS ORDERED: CYCLOBENZAPRINE10 MG PO (15:50)
--- NOTE | 2019-03-03 18:55 | NUR ---
Dr. Fabian Cole, covering for Dr. Frankie Farooq renal, Dr. Peralta consulted patient, this nurse received orders to start patient on NS @75cc /hr prior to heart catheterization. Addendum: 03/03/19 at 1857 by Miryam Brandon RN Per Dr. Peralta patient to start IVF 6 hours prior to heart cath.
--- NOTE | 2019-03-03 19:15 | NUR ---
PATIENT IS IN BED, AWAKE ALERT ORIENTED. HE STATED HE WILL SIGN CONSENT FOR THE PROCEDURE IN THE MORNING AND ALSO HE AWARE THAT HE WILL BE NPO AFTER MIDNIGHT. DENIED ANY DISCOMFORT AT THIS TIME, VITALS CHECKED, WILL CONTINUE TO MONITOR.
--- NOTE | 2019-03-03 19:20 | Consultation ---
DATE OF CONSULTATION: 03/03/2019 Cardiology Consultation. REASON FOR CONSULTATION: Chest pain. HISTORY OF PRESENT ILLNESS: This is an 88-year-old man with history of coronary artery disease, status post prior percutaneous coronary intervention, last being approximately one year ago, hypertension, diabetes mellitus, hyperlipidemia, status post pacemaker implantation, who presented to the emergency department with chest pain. The patient states that he had moderate to severe chest discomfort that woke him from sleep that was relieved with nitroglycerin, associated with some shortness of breath. No radiation or any other cardiac symptoms. He felt well throughout the day and then, however, his chest pain returned while walking to the grocery store. Chest pain continued to worsen, which prompted him to seek medical attention. Upon arrival here, he was noted to have elevated troponin with most current being 1.4 with a CK-MB peak at 8.7. REVIEW OF SYSTEMS: A 12-point review of system was conducted, is negative except as stated above in the HPI. PAST MEDICAL HISTORY: As stated above in the HPI. PAST SURGICAL HISTORY: As stated above in the HPI. FAMILY HISTORY: Noncontributory. SOCIAL HISTORY: No illicit drug, alcohol, or tobacco use. ALLERGIES: PENICILLIN. MEDICATIONS: See medication reconciliation form. PHYSICAL EXAMINATION: VITAL SIGNS: Temperature is 97.6, heart rate is 90, respirations are 24, blood pressure is 154/95, oxygen saturation 97% on room air. GENERAL: Well appearing, well built, no apparent distress. Alert and orient x3. HEAD: Normocephalic and atraumatic. EYES: The extraocular muscles are intact. Conjunctivae clear. NECK: No JVD. No bruits. CARDIOVASCULAR: Regular rate and rhythm. LUNGS: Clear to auscultation. ABDOMEN: Soft, nontender, nondistended. EXTREMITIES: No clubbing, cyanosis, or edema. VASCULAR: 2+ pulses. SKIN: Warm, dry, intact. NEUROLOGIC: No focal deficits noted. LABORATORY DATA: Reviewed. Troponin 1.4. Creatinine is 1.6. IMAGING: A 12-lead electrocardiogram showed ventricular paced rhythm. IMPRESSION: 1. Ryh-JZ-ekszolunv myocardial infarction. 2. Coronary artery disease status post percutaneous coronary intervention. 3. Permanent pacemaker implantation. 4. Hypertension. 5. Hyperlipidemia. 6. Diabetes mellitus. RECOMMENDATIONS: Continue intravenous heparin. We will continue aspirin and restart Plavix. 2D echocardiogram will be ordered. Resume antihypertensives. Avoid nephrotoxic agents. Gentle IV hydration prior to the heart catheterization for renal protection. The patient will need coronary angiography with possible coronary intervention. DO JUSTIN Mckeon/NESSAL /[id number]
[2019-03-03 19:35] LABS: ANION GAP 18.4 mmol/L (8-16); CALCIUM 9.3 mg/dL (8.4-10.2); CREATININE, SERUM 1.6 mg/dL (0.72-1.25); POTASSIUM 4.4 mmol/L (3.5-5.1)
[2019-03-03] MEDS: HEPARIN 25,000 UNIT/D5W 250ML 250 ML IV SCH (20:00)
[2019-03-03] MEDS: ATORVASTATIN 40 MG TAB PO SCH (20:07)
[2019-03-04] VITALS (7 sets, daily range): BP systolic 111–171; BP diastolic 59–108
--- NOTE | 2019-03-04 01:46 | Consultation ---
DATE OF CONSULTATION: 03/03/2019 Nephrology Consultation REASON FOR CONSULTATION: Elevated BUN and creatinine levels. HISTORY OF PRESENT ILLNESS: The patient is a very pleasant 88-year-old white male with a history of diabetes mellitus, but no known chronic kidney disease, who was admitted yesterday with chest pain suggestive of acute coronary syndrome. He is presently chest pain free on an IV nitroglycerin, on an IV heparin drip. Presently asymptomatic. Denies any nausea, vomiting, diarrhea, shortness of breath. Abdominal or flank pain, dysuria, or gross hematuria. His admission labs did show an elevated creatinine of 1.68, BUN of 27 with a concomitant glucose of 244. This consultation has been requested to assist in managing his renal insufficiency with an eye to prophylaxis against planned coronary angiogram tomorrow. As stated above, patient is unaware of any chronic kidney disease. He does admit to taking ibuprofen on a regular basis for arthritis. Denies any kidney stone disease or prostate problems. PAST MEDICAL HISTORY: As noted above. He has not aware if he has history of hypertension or not. FAMILY HISTORY: Noncontributory. SOCIAL HISTORY: Lives with his . No alcohol or tobacco use. REVIEW OF SYSTEMS: Negative except as noted above in HPI. PHYSICAL EXAMINATION: GENERAL: The patient is in no acute distress at this time. Fully alert and oriented. VITAL SIGNS: Stable. Blood pressure 127/72, pulse 86 per minute, respiration 19 per minute, afebrile, room air oxygen is 97%. SKIN: Normal turgor. No active lesions. HEENT: Normocephalic, atraumatic head. No icterus. Oral mucosa unremarkable. NECK: Supple without jugular venous distention. CHEST: Bilateral air movement, which is somewhat diminished in inaudibility. I do not hear any crepitations or wheezing. CARDIOVASCULAR: Shows S1, S2 without murmur, rub, or gallop. ABDOMEN: Soft, depressible, nontender. Nondistended. EXTREMITIES: Without pitting edema or cyanosis. NEUROLOGICAL: Alert and oriented x3. No obvious focal deficits. Chest x-ray reports low lung volumes with patchy bibasilar opacities, which are likely atelectasis. Cardiac silhouette is mildly enlarged. No pulmonary edema. LABORATORY DATA: Serum chemistries showed normal electrolytes. Renal labs as noted above. Total calcium is normal. His troponin is elevated at 1.325. Serum albumin 3.9. Urinalysis shows 21-50 white cells, 0-5 red cells, otherwise negative for protein. This is a pleasant 88-year-old male with long-standing diabetes mellitus, is now admitted with chest pain, strongly suggestive of acute coronary syndrome. He is currently asymptomatic and on IV heparin drip. Plan is for a coronary angiogram tomorrow morning. He does have elevated BUN and creatinine with an EGFR around 40 mL/minute. I do not know if this is acute or chronic nor does the patient. No prior creatinine levels available. His blood pressure is controlled without any medications. As noted above, he does admit to taking ibuprofen on a regular basis. He does not have any protein on his urinalysis. RECOMMENDATION: The patient is at least at moderate risk for contrast nephropathy during the angiogram tomorrow. I will recommend carefully hydrating him intravenously with 75 mL/h of normal saline starting 6 hours before the procedure and continuing for at least another 6 hours following the procedure tomorrow. He is not on any diuretics currently. I will order a renal ultrasound for tomorrow. Avoid all known nephrotoxins. We will follow up on patient next week and recommend as indicated. Thank you for the opportunity to participate in his care. MD ALETHA Ibanez/DWAYNE /[id number]
--- NOTE | 2019-03-04 05:15 | NUR ---
PATIENT JUST HAD A SHOWER WITH HIBICLENS, TOLERATED WELL. LINENS CHANGED.
[2019-03-04] MEDS: FAMOTIDINE 20 MG/2 ML VIAL IV SCH ×2 (05:59→17:06)
[2019-03-04 06:43] LABS: ANION GAP 15.9 mmol/L (8-16); CALCIUM 9.3 mg/dL (8.4-10.2); CREATININE, SERUM 1.44 mg/dL (0.72-1.25); POTASSIUM 3.9 mmol/L (3.5-5.1)
--- NOTE | 2019-03-04 06:45 | NUR ---
LAST PTT IS 41.8; INCREASE HEPARIN DRIP BY 100 UNITS/HR. RE CHECK PTT AGAIN IN 6 HR.
--- NOTE | 2019-03-04 07:11 | NUR ---
REPORTS HANDED TO UPCOMING NURSE.
--- NOTE | 2019-03-04 07:25 | NUR ---
IM- progress harry O/N no events ROS: no f/c/s/N/V/D/PETERSEN/vision changes/skin rash/confusion/agitation/back pain v/s; revd PE tired appearing anicteric ns1s2 mod bs soft nt nd no e/t skin dry n. affect a&ox3; wheeler labs/meds revd A/P: NSTEMI CAD with hx stent CKD3 due to DM2 Morbid obesity BMI 35 HTN HLD PLAN Heparin gtt; echo; cardio eval; Restart home meds Prop: heparin/pepcid dispo f/u 03/04 Hba1c/LDL 8.3 Johnny Soto MD, PhD.
[2019-03-04] MEDS: INSULIN LISPRO 100 UNIT/1 ML 3ML VIAL SQ SCH ×4 (07:30→21:04)
[2019-03-04] MEDS: ASPIRIN 325 MG TAB EC PO SCH (07:31)
[2019-03-04] MEDS: CLOPIDOGREL BISULFATE 75 MG TAB PO SCH (07:31)
[2019-03-04] MEDS: NITROGLYCERIN 0.4 MG SUBL SL PRN ×2 (07:40→15:50)
[2019-03-04] MEDS ORDERED: SODIUM CHLORIDE 0.9% 1000ML 1,000 ML IV ONE (08:00)
--- NOTE | 2019-03-04 11:39 | Progress Note ---
DATE: 03/04/2019 Cardiology Progress Note SUBJECTIVE: The patient reports episode of chest pain earlier this morning, but this has since resolved. He reports his breathing remains so-so. OBJECTIVE: VITAL SIGNS: Temperature 97.7 degrees, pulse 112, respiratory rate 20, blood pressure 171/108, oxygen saturation 98% on 2 L nasal cannula. GENERAL: Elderly man, in no acute distress. Awake and alert. LUNGS: Clear to auscultation bilaterally. No wheezes or crackles. CARDIOVASCULAR: Normal rate, regular rhythm. No murmur. Normal S1, S2. ABDOMEN: Soft, nontender. EXTREMITIES: No edema. CARDIAC MEDICATIONS: Atorvastatin 40 mg p.o. at bedtime, Plavix 75 mg p.o. daily, heparin drip, aspirin 325 mg p.o. daily. LABORATORY DATA: Sodium 137, potassium 3.9, chloride 98, CO2 of 27, BUN 20, creatinine 1.44. TELEMETRY: V-paced. IMPRESSION: 1. Gjr-GL-nznbplxxe myocardial infarction. 2. Coronary artery disease status post percutaneous coronary intervention. 3. Permanent pacemaker implantation. 4. Hypertension. 5. Hyperlipidemia. 6. Diabetes mellitus. RECOMMENDATIONS: Continue heparin drip. Continue aspirin and Plavix. The patient will need coronary angiogram for further evaluation likely tomorrow, if renal function continues to improve as color laboratory technician availability is limited today. Thank you for this consult. We will continue to follow. Claudia Londono MD ABS/MODL /[id number]
[2019-03-04] MEDS: ACETAMINOPHEN 325 MG TAB PO PRN (12:19)
--- NOTE | 2019-03-04 12:39 | Diagnostic Imaging Report ---
Ultrasound of the Kidneys, 03/04/2019. Clinical History: Acute kidney injury. Discussion: Sonographic evaluation of the kidneys is performed. Right kidney: 10.7 cm in length, normal in size, with cortical thickness of 1.8 cm. Normal cortical echogenicity. No mass. No shadowing calculus. No hydronephrosis. Left kidney: 10.7 cm in length, normal in size, with cortical thickness of 1.6 cm. Normal cortical echogenicity. No mass. No shadowing calculus. No hydronephrosis. Limited Doppler evaluation demonstrates normal color Doppler flow within bilateral renal charu. Fluid: No perinephric fluid. Bladder: Bilateral ureteral jets are visualized. IMPRESSION: Normal sonographic evaluation of the bilateral kidneys. Signed by: Surendra Mahoney MD on 03/04/2019 12:35 PM
--- NOTE | 2019-03-04 13:27 | NUR ---
WOUNDCARE CONSULT 89 YO FEMALE HX RESP FAILURE ,CHEST PAIN KESHIA 13 ON MODERATE PUP STATUS AND ALTERNATING PRESSURE SURFACE LABS: WBC- 10.78,HGB- 13.3 BLOOD CULTURE NO GROWTH SKIN ASSESSMENT COMPLETE PATIENT PRESENTS WITH STAGE 2 ULCERATION TO SACRAL GLUTEAL AREA 2.5CM X2.5CM X.1CM RECOMMENDATIONS: NURSING TO CONTINUE TO MAINTAIN MODERATE PUP STATUS AND INTERVENTIONS NURSING TO CONTINUE TO ASSIST PATIENT OUT OF BED FOR MEALS AND MUCH TOLERATED NURSING TO CONTINUE TO MAINTAIN BUTTOCKS AND IRAJ AREA CLEAN AND DRY NURSING TO APPLY VENELEX OINTMENT TO GLUTEAL CREASE DAILY AND COVER WITH ALLEVYN FOAM
[2019-03-04] MEDS ORDERED: SODIUM CHLORIDE 0.9% 1000ML 1,000 ML ONE (17:03)
[2019-03-04] MEDS: ATORVASTATIN 40 MG TAB PO SCH (20:39)
[2019-03-04] MEDS: HEPARIN 25,000 UNIT/D5W 250ML 250 ML IV SCH (21:13)
[2019-03-04] MEDS: MORPHINE SULFATE 2 MG/ML SYR 1ML IV PRN (22:43)
[2019-03-04] MEDS: ALBUTEROL/IPRATROPIUM 3 ML NEB NEB PRN (23:50)
[2019-03-05] VITALS (14 sets, daily range): BP systolic 108–166; BP diastolic 65–88
[2019-03-05] MEDS: FAMOTIDINE 20 MG/2 ML VIAL IV SCH ×2 (05:10→18:12)
[2019-03-05] MEDS: HEPARIN 25,000 UNIT/D5W 250ML 250 ML IV SCH (06:17)
--- NOTE | 2019-03-05 06:44 | NUR ---
IM- progress harry O/N no events ROS: no f/c/s/N/V/D/PETERSEN/vision changes/skin rash/confusion/agitation/back pain v/s; revd PE tired appearing anicteric ns1s2 mod bs soft nt nd no e/t skin dry n. affect a&ox3; wheeler labs/meds revd A/P: NSTEMI CAD with hx stent CKD3 due to DM2 Morbid obesity BMI 35 HTN HLD PLAN Heparin gtt; echo; cardio eval; Restart home meds Prop: heparin/pepcid dispo f/u 03/04 Hba1c/LDL 8.303/05 check BMP; renal U/S normal; Johnny Soto MD, PhD.
[2019-03-05 07:11] LABS: ANION GAP 15.2 mmol/L (8-16); CALCIUM 9.3 mg/dL (8.4-10.2); CREATININE, SERUM 1.75 mg/dL (0.72-1.25); POTASSIUM 4.2 mmol/L (3.5-5.1)
[2019-03-05] MEDS: INSULIN LISPRO 100 UNIT/1 ML 3ML VIAL SQ SCH ×4 (08:00→20:40)
[2019-03-05] MEDS: CLOPIDOGREL BISULFATE 75 MG TAB PO SCH (09:00)
[2019-03-05] MEDS: ASPIRIN 325 MG TAB EC PO SCH (09:00)
[2019-03-05] MEDS ORDERED: ASPIRIN 81 MG CHEW TAB PO ONE (11:30)
[2019-03-05] MEDS ORDERED: SODIUM CHLORIDE 0.9% 1000ML 1,000 ML ONE (11:32)
[2019-03-05] MEDS ORDERED: MIDAZOLAM HCL 2 MG/2 ML VIAL ONE (12:14)
[2019-03-05] MEDS ORDERED: VERAPAMIL HCL 2.5 MG/ML 2 ML VIAL ONE (12:14)
[2019-03-05] MEDS ORDERED: IOPAMIDOL 300MG/ML 100 ML INFUS..BTL IV ONE (12:15)
[2019-03-05] MEDS ORDERED: FENTANYL CITRATE/PF 100MCG/2 ML INJ ONE (12:15)
[2019-03-05] MEDS ORDERED: LIDOCAINE HCL 2% LOCAL 20 ML VIAL ONE (12:15)
[2019-03-05] MEDS ORDERED: HEPARIN SOD/SOD CHLORIDE 1,000 ML ONE (12:15)
[2019-03-05] MEDS ORDERED: METOPROLOL TARTRATE INJ 1 MG/ML VIAL ONE (12:48)
--- NOTE | 2019-03-05 13:52 | NUR ---
0309 Bedside report received from Vito STRINGER. Alert oriented and appropriate, PERRLA, respirations even and unlabored to room air. Pulses x4 extremities equal and strong. Pedal pulses PT/DP X4 Cap fill brisk < 3 sec. TR band down at 3p and ok transfer back floor care Skin warm and dry integrity appears intact IV 20g to rt forearm, presents healthy w/o s/s of infiltration or complaint. Abdomen soft and supple. pt offered toileting, denies need to urinate or defecate. No personal affects with patient. Family at bedside. Pt and family verbalizes understanding of POC. Currently w/o complaint of pain or need. ds/rn
[2019-03-05] MEDS ORDERED: CLOPIDOGREL BISULFATE 75 MG TAB ONE (13:53)
--- NOTE | 2019-03-05 15:00 | NUR ---
1500p RADIAL Compression removal: Initial Cuff volume 15 cc 1500p -2cc Removed No hematoma/bleeding noted with normal neurovascular function. 1515p -5cc Removed No hematoma/ bleeding noted with normal neurovascular function. 1530p -5cc Removed No hematoma/bleeding noted with normal neurovascular function. Phoned report to Conrad Bedolla Rm 187 stable transfer per bed to room with RN escort and Monitor. Air removal completed. Stasis achieved sterile 2x2,Tegaderm, Coban dressing No hematoma, bleeding noted with normal neurovascular function. Wrist splint in place. Pt instructed on POC. Ds/Rn
--- NOTE | 2019-03-05 15:42 | NUR ---
1542 Face to face report and pt left at bedside with call light at bedside and family at bs 1515 Bs 195 report to Conrad, RN to f/o with coverage of BS and any respiratory evaluation, Currently 97% Ra Rt TR band intact with normal neuro vascular function. Ok to remove wrist reminder with am shower. No gross issues pain pallor pressure or dysrhythmia.Has pacemaker. ds/rn
--- NOTE | 2019-03-05 18:39 | Progress Note ---
DATE: 03/05/2019 Cardiology Progress Note SUBJECTIVE: The patient has had recurrent chest pain overnight and through this morning, requiring treatment with sublingual nitroglycerin. He denies any shortness of breath. OBJECTIVE: VITAL SIGNS: Temperature 99.1 degrees, pulse 99, respiratory rate 18, blood pressure 108/77, oxygen saturation 100%. GENERAL: Elderly man, no acute distress. Awake and alert. LUNGS: Clear to auscultation bilaterally. No wheezes or crackles. CARDIOVASCULAR: Normal rate, regular rhythm. No murmur. Normal S1, S2. ABDOMEN: Soft, nontender. EXTREMITIES: No edema. CARDIAC MEDICATIONS: Heparin drip, atorvastatin 40 mg p.o. at bedtime, Plavix 75 mg p.o. daily, aspirin 325 mg p.o. daily. LABORATORY DATA: Sodium 136, potassium 4.2, chloride 97, CO2 of 28, BUN 20, creatinine 1.75. TELEMETRY: V-paced. IMPRESSION: 1. Gku-GP-swqzaxrqa myocardial infarction. 2. Coronary artery disease. 3. Permanent pacemaker implantation. 4. Hypertension. 5. Hyperlipidemia. 6. Diabetes mellitus. RECOMMENDATIONS: Continue heparin drip. Continue aspirin and Plavix. Given patient's kuu-RU-pmmgmjpyr myocardial infarction and continued chest pain, we will need to proceed with coronary angiogram, although renal function is worse than prior. The risks and benefits of cardiac catheterization including risk of acute kidney injury, and need for hemodialysis were discussed with the patient and his . They understand and are agreeable with proceeding at this time. Maintain n.p.o. Continue current cardiac medications. Monitor the patient on telemetry. Thank you for this consult. We will continue to follow. Claudia Londono MD ABS/MODL /[id number]
[2019-03-05] MEDS: ATORVASTATIN 40 MG TAB PO SCH (20:26)
[2019-03-06] VITALS (12 sets, daily range): BP systolic 98–132; BP diastolic 54–72
[2019-03-06] MEDS: ONDANSETRON HCL INJ 2MG/ML 2ML 2 MG/ML VIAL IV PRN (00:34)
[2019-03-06] MEDS: MORPHINE SULFATE 2 MG/ML SYR 1ML IV PRN (00:34)
--- NOTE | 2019-03-06 05:10 | NUR ---
NURSE HEARD NOISE COME FROM PATIENT'S ROOM WHEN NURSES ENTERED PATIENT'S ROOM PATIENT WAS ON THE FLOOR ACROSS FROM THE BED. ALL MONITORS HAD BEEN REMOVED AND PATIENT HAD URINATED ON THE FLOOR AROUND THE BEDSIDE COMMODE. WHEN ASKED WHAT HAPPENED HE STATED "I SAW ALL THOSE COCKROACHES RUNNING ACROSS THE WALL AND I HAD TO COME SMASH THEM." PATIENT STATES HE SAW ROACHES ALL OVER HIS ROOM. PATIENT WAS WEARING YELLOW SOCKS WHICH WERE SOILED IN URINE. PATIENT IS NOTED TO HAVE TWO SKIN TEARS ONE TO RIGHT ELBOW AND ANOTHER TO LEFT FOREARM. CHARGE NURSE RADHA NOTIFIED AND DR. ALDANA WAS NOTIFIED, CT OF THE HEAD AND XRAY OF THE RIGHT HIP WERE ORDERED. PATIENT WAS CLEANED UP AND GOTTEN TO BED WHERE INITIAL VITAL SIGNS WERE TAKEN WITH TEMP OF 98.6, BP 98/54, PULSE 69, RESP 19. PATIENT C/O HEADACHE ONLY AND TO PLEASE NOT TELL HIS STATES HE WILL BE IN TROUBLE WITH HER. ATTEMPTED TO CALL HOME NUMBER BUT NO ANSWER. WILL CONTINUE TO TRY TO CONTACT PATIENT'S . PATIENT IS RESTING IN BED WITH BED ALARM ACTIVATED.
--- NOTE | 2019-03-06 05:20 | NUR ---
CALLED AND SPOKE WITH BRENDA BARRAGAN, PATIENT'S , AND NOTIFIED THAT PATIENT FELL THIS AM AND THAT IMAGING WAS DONE BUT PATIENT IS BACK IN BED. SHE STATES THANK YOU FOR THE CALL BUT SHE IS TOO TIRED AND WILL BE IN LATER. WILL CONTINUE TO MONITOR PATIENT.
[2019-03-06] MEDS: FAMOTIDINE 20 MG/2 ML VIAL IV SCH ×2 (05:22→18:30)
--- NOTE | 2019-03-06 05:47 | Diagnostic Imaging Report ---
EXAMINATION: Head CT without contrast. HISTORY:Fall. COMPARISON:CT brain from 09/07/2017. TECHNIQUE: Multidetector axial images were obtained from the foramen magnum to the vertex without contrast. The images were reconstructed using brain and bone algorithms. Thin section brain images were reformatted into coronal and sagittal planes. Dose modulation, iterative reconstruction, and/or weight based adjustment of the mA/kV was utilized to reduce the radiation dose to as low as reasonably achievable. Intravenous contrast: None IMAGE QUALITY: Acceptable. FINDINGS: Skull/scalp: No lytic or blastic. lesions. No surgical changes. Parenchyma: Nonspecific few, scattered supratentorial white matter hypodensity are likely related to small vessel ischemic changes. 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 No acute hemorrhage, mass or acute major vascular territorial infarct. Arteries: No density suggestive of thrombosis. Dural sinuses: No abnormal density suggestive of thrombosis. Ventricles: Mild compensated dilatation due to volume loss. No hydrocephalus. Extra-axial spaces: No abnormal density. Brain volume: Mild generalized cerebral volume loss. Craniocervical junction: No mass, Chiari malformation, or basilar invagination. Sella: No mass. Paranasal/mastoid sinuses: Imaged portions unremarkable. IMPRESSION: No acute intracranial abnormality. No change since CT head from 09/07/2017. Chronic findings: 1. 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 2. Mild supratentorial white matter microvascular ischemic changes. 3. Mild generalized cerebral volume loss. Signed by: Dr. Silva Zapata M.D. on 03/06/2019 5:44 AM
--- NOTE | 2019-03-06 05:57 | Diagnostic Imaging Report ---
X-RAY PELVIS 1 VIEW AND RIGHT HIP 2 VIEWS HISTORY: Pain. COMPARISON: None available. FINDINGS: Bones: No acute displaced fracture. Osseous alignment is within normal limits. Joints: No dislocations. Degenerative changes in the lower lumbar spine hips and pelvis. Soft tissues: Contrast within the bladder lumen. Calcified enthesopathic changes about the pelvis. IMPRESSION: No acute radiographic osseous abnormality. Degenerative changes in the lower lumbar spine hips and pelvis. Signed by: Raghav Howe DO on 03/06/2019 5:53 AM
--- NOTE | 2019-03-06 07:04 | NUR ---
IM- progress harry O/N no events ROS: no f/c/s/N/V/D/PETERSEN/vision changes/skin rash/confusion/agitation/back pain v/s; revd PE tired appearing anicteric ns1s2 mod bs soft nt nd no e/t skin dry n. affect a&ox3; wheeler labs/meds revd A/P: NSTEMI CAD with hx stent CKD3 due to DM2 Morbid obesity BMI 35 HTN HLD PLAN Heparin gtt; echo; cardio eval; Restart home meds Prop: heparin/pepcid dispo f/u 03/04 Hba1c/LDL 8.06/19 03/05 check BMP; renal U/S normal; 03/06 Tn now 75; f/u cardiac studies. start ramon Soto MD, PhD.
[2019-03-06] MEDS ORDERED: INSULIN GLARGINE 100 UNITS/ML VIAL SQ SCH (09:00)
[2019-03-06] MEDS: ASPIRIN 325 MG TAB EC PO SCH (09:34)
[2019-03-06] MEDS: CLOPIDOGREL BISULFATE 75 MG TAB PO SCH (09:34)
[2019-03-06] MEDS: INSULIN LISPRO 100 UNIT/1 ML 3ML VIAL SQ SCH ×3 (09:37→16:44)
[2019-03-06 10:11] LABS: ANION GAP 14.9 mmol/L (8-16); CREATININE, SERUM 2.01 mg/dL (0.72-1.25); POTASSIUM 4.9 mmol/L (3.5-5.1)
--- NOTE | 2019-03-06 10:40 | NUR ---
Blood glucose 514. Spoke with Dr Soto who ordered additional lantus now and changed ac humalog.
[2019-03-06] MEDS ORDERED: INSULIN GLARGINE 100 UNITS/ML VIAL SQ ONE (12:10)
[2019-03-06] MEDS: ACETAMINOPHEN 325 MG TAB PO PRN ×2 (15:25→20:44)
[2019-03-06] MEDS ORDERED: INSULIN LISPRO 100 UNIT/1 ML 3ML VIAL SQ ONE (16:30)
--- NOTE | 2019-03-06 16:38 | NUR ---
Order recevied for . Spoke to patient, in network with their insurance is [employer] [facility] [employer] [id number]. Patient signs choice for [employer]. Clinicals faxed to [phone]
--- NOTE | 2019-03-06 16:54 | NUR ---
IMM explained to patient, patient signed, copy to patient, copy to chart
--- NOTE | 2019-03-06 19:37 | NUR ---
reports received, patient needs IV line to be changed. new IV line inserted its size 22g to right upper arm.
--- NOTE | 2019-03-06 19:38 | Progress Note ---
DATE: 03/06/2019 Cardiology Progress Note SUBJECTIVE: The patient denies chest pain or shortness of breath. He was confused overnight. OBJECTIVE: VITAL SIGNS: Temperature 98.5 degrees, pulse 99, respiratory rate 28, blood pressure 112/62, and oxygen saturation 95% on 3 L nasal cannula. GENERAL: Elderly man, awake and alert, in no acute distress. LUNGS: Clear to auscultation bilaterally. No wheezes or crackles. CARDIOVASCULAR: Normal rate. Regular rhythm. No murmur. Normal S1 and S2. ABDOMEN: Soft and nontender. EXTREMITIES: No edema. CARDIAC MEDICATIONS: Plavix 75 mg p.o. daily, aspirin 325 mg p.o. daily, and atorvastatin 40 mg p.o. at bedtime. LABORATORY DATA: Sodium 136, potassium 4.9, chloride is 98, CO2 28, BUN 25, and creatinine 2.01. TELEMETRY: V-paced. IMPRESSION: 1. Xsq-VB-ejaflvghj myocardial infarction. 2. Coronary artery disease, now status post LAD PCI. 3. Permanent pacemaker implantation. 4. Dambe-gd-txisqxe kidney disease. 5. Hypertension. 6. Hyperlipidemia. 7. Diabetes mellitus. RECOMMENDATIONS: Continue dual anti-platelet therapy. Aspirin was decreased to 81 mg p.o. daily. Continue atorvastatin. Monitor the patient closely on telemetry. Monitor creatinine closely. Management of the patient's confusion per primary service. Troponin elevation is noted. This lab was drawn postprocedure. No change in management other than above. Thank you for this consult. We will continue to follow. Claudia Londono MD ABS/MODL /[id number]
[2019-03-06] MEDS: ATORVASTATIN 40 MG TAB PO SCH (20:25)
--- NOTE | 2019-03-06 20:57 | NUR ---
patient is sleeping on the recliner, alarm is on, vitals signs within normal level. denied any discomfort after tylenol for headache. will continue to monitor.
--- NOTE | 2019-03-06 22:47 | NUR ---
patient asking to move to sleep in the bed this time. bed alarm is on, will continue to monitor.
[2019-03-07] VITALS (7 sets, daily range): BP systolic 111–129; BP diastolic 56–84
--- NOTE | 2019-03-07 00:10 | NUR ---
patient asked to to to bathroom, he refused to use bed side commode and got mad to nurse use bad words, he went to bathroom and closed the door not allow nurse to go with him. charge nurse notified and charge nurse called family member.
--- NOTE | 2019-03-07 00:22 | NUR ---
charge nurse called family(son) about the patient agitation and refused to use bed side commode and not letting nurse standing by while he using the bathroom and close the bathroom door on the nurse.
--- NOTE | 2019-03-07 00:32 | NUR ---
patient sitting on recliner, alarm is on.
--- NOTE | 2019-03-07 03:35 | NUR ---
patient just had another agitation episode, getting mad and calling names to nurse. House sup notified.
--- NOTE | 2019-03-07 04:00 | NUR ---
Received patient from another nurse. patient was agitated about trying to walk, hence assignment change. patient stable at this time and no complains.
[2019-03-07] MEDS: MORPHINE SULFATE 2 MG/ML SYR 1ML IV PRN (04:17)
[2019-03-07] MEDS: ONDANSETRON HCL INJ 2MG/ML 2ML 2 MG/ML VIAL IV PRN (04:17)
--- NOTE | 2019-03-07 05:00 | NUR ---
patient at bed side, patient educated and made aware of the importance of using the call light for help, patient and verbalized understanding. patient is on bed alarm.
[2019-03-07] MEDS: FAMOTIDINE 20 MG/2 ML VIAL IV SCH (06:59)
--- NOTE | 2019-03-07 07:03 | NUR ---
reports given to upcoming nurse, on bed side.
--- NOTE | 2019-03-07 07:16 | NUR ---
patient endorsed next shift for continuity of care
--- NOTE | 2019-03-07 07:35 | NUR ---
IM- progress harry O/N no events ROS: no f/c/s/N/V/D/PETERSEN/vision changes/skin rash/confusion/agitation/back pain v/s; revd PE tired appearing anicteric ns1s2 mod bs soft nt nd no e/t skin dry n. affect a&ox3; wheeler labs/meds revd A/P: NSTEMI CAD with hx stent CKD3 due to DM2 Morbid obesity BMI 35 HTN HLD PLAN Heparin gtt; echo; cardio eval; Restart home meds Prop: heparin/pepcid dispo f/u 03/04 Hba1c/LDL 8.06/19 03/05 check BMP; renal U/S normal; 03/06 Tn now 75; f/u cardiac studies. start lantus 03/07 s/p stent to LAD; PPM implantation; BALAJI- CT brain negative; Increase lantus to 25 units q12. Pt also has Acute Exa Systolic CHF LVEF 35%- present on admission; requiring O2 for home use. Johnny Soto MD, PhD.
--- NOTE | 2019-03-07 07:51 | NUR ---
Called Dr. Enoc Soto made him aware patient's blood sugar 436, informed Dr. Soto I gave patient's 7 units of Humalog insulin with meals per MAR, received orders to give 25 units of Lantus and he would put in the order.
[2019-03-07] MEDS: INSULIN LISPRO 100 UNIT/1 ML 3ML VIAL SQ SCH ×3 (07:56→17:02)
[2019-03-07] MEDS ORDERED: PEPCID20 MG PO (08:03)
[2019-03-07] MEDS ORDERED: Atorvastatin PO (08:03)
[2019-03-07] MEDS: CLOPIDOGREL BISULFATE 75 MG TAB PO SCH (08:14)
[2019-03-07] MEDS ORDERED: ASPIRIN 81 MG ENTERIC COATED PO SCH (09:00)
[2019-03-07] MEDS ORDERED: INSULIN GLARGINE 100 UNITS/ML VIAL SQ SCH ×2 (09:00)
[2019-03-07 10:31] LABS: ANION GAP 18.6 mmol/L (8-16); CREATININE, SERUM 2.12 mg/dL (0.72-1.25); POTASSIUM 4.6 mmol/L (3.5-5.1)
--- NOTE | 2019-03-07 11:35 | NUR ---
Spoke to Patsy with intake at [facility]. States referral is still in review, but they have everything they need for referral. They will contact pt once auth obtained.
[2019-03-07] MEDS ORDERED: INSULIN LISPRO 100 UNIT/1 ML 3ML VIAL SQ ONE ×2 (12:00→17:00)
[2019-03-07] MEDS ORDERED: ONDANSETRON HCL 4 MG ORAL DISINTEGRATING TAB PO PRN (12:00)
--- NOTE | 2019-03-07 13:07 | NUR ---
Home O2 evaluation was completed. Pt is at 86% on RA. LEOLA spoke with Dr. Stoo regarding documentation to support need for oxygen. He states he will update his notes. CM spoke to pt, his , and son at bedside regarding oxygen. They agreed to use any company that can take his insurance. Choice letter signed for [employer], [employer], and [employer]. Signed copy placed in chart. Copy given to pt's . Dominik Villa ([phone]) was notified of referral. He is currently at the hospital and will apple picking supervisor clinical and deliver portables. CM also spoke about home health. Informed them that referral is currently under review. Home health contact information was given to pt's and advised her to call the home health company if they do not hear from them within 24 hrs of discharge. [facility] business card was given to pt's for any questions/concerns.
--- NOTE | 2019-03-07 14:07 | NUR ---
Notified Dr. Enoc Soto of patient's accu check 411 made aware I had covered with insulin per orders earlier, received orders recheck orders in 2 hours about 5pm and if still in 400's then give 20 Units Humalog of short acting insulin. By that time the long acting should be kicking in.
--- NOTE | 2019-03-07 15:27 | Diagnostic Imaging Report ---
Chest, 1 view, 03/07/2019. History: Shortness of breath. Comparison: 03/02/2019. Findings: The cardiomediastinal silhouette and pulmonary vasculature are within normal limits for a portable exam. Linear opacities are present lung bases without change. There is no focal consolidation or pleural effusion. Left subclavian pacer is unchanged in position. There are no acute osseous or soft tissue abnormalities. Impression: Bibasilar atelectasis. Signed by: Montana Oneil on 03/07/2019 3:24 PM
--- NOTE | 2019-03-07 17:14 | Progress Note ---
DATE: 03/07/2019 Cardiology Progress Note SUBJECTIVE: The patient denies chest pain, but does endorse some shortness of breath. Family at bedside indicates he continues to have hallucinations. OBJECTIVE: VITAL SIGNS: Temperature 98.4 degrees, pulse 109, respiratory rate 20, blood pressure 119/65, and oxygen saturation 99% on 2 L nasal cannula. GENERAL: Elderly man, awake and alert. No acute distress. LUNGS: Clear to auscultation bilaterally. No wheezes or crackles. CARDIOVASCULAR: Normal rate. Regular rhythm. No murmur. Normal S1 and S2. ABDOMEN: Soft and nontender. EXTREMITIES: No edema. CARDIAC MEDICATIONS: Aspirin 81 mg p.o. daily, Plavix 75 mg p.o. daily, and atorvastatin 40 mg p.o. at bedtime. LABORATORY DATA: Sodium 132, potassium 4.6, chloride 95, CO2 23, BUN 29, and creatinine 2.12. TELEMETRY: V-paced. IMPRESSION: 1. Abw-QG-wykghxmdf myocardial infarction. 2. Acute systolic heart failure. 3. Coronary artery disease, status post LAD PCI. 4. Permanent pacemaker implantation. 5. Uqskc-ll-yccdipl kidney disease. 6. Hypertension. 7. Hyperlipidemia. 8. Diabetes mellitus. RECOMMENDATIONS: Continue dual anti-platelet therapy given recent stent. Continue atorvastatin. Check BNP and chest x-ray. Given IV fluid hydration for procedure, he may now be volume overload, however, our ability to diurese him will be limited due to his current acute kidney injury. Monitor volume status closely. Follow creatinine. Monitor the patient on telemetry. Management of altered mental status per primary service. Thank you for this consult. We will continue to follow. Claudia Londono MD ABS/MODL /[id number]
[2019-03-07 18:42] LABS: BASOPHILS % 0.2 % (0.0-1.0); EOSINOPHILS % 0.4 % (0.0-6.0); HEMATOCRIT 28.8 % (38.2-49.6); HEMOGLOBIN 9.4 g/dL (14.0-18.0); LYMPHOCYTES # (AUTO) 1.3 (1.0-3.2); LYMPHOCYTES % 15.6 % (18.0-39.1); MEAN CORPUSCULAR HEMOGLOBIN 31.4 pg (28-32); MEAN CORPUSCULAR HGB CONC 32.6 g/dL (31-35); MEAN CORPUSCULAR VOLUME 96.3 fL (81-99); MONOCYTES % 11.3 % (4.4-11.3); NEUTROPHILS # (AUTO) 6.1 (2.1-6.9); PLATELET COUNT 184 x10e3/uL (140-360); RED BLOOD COUNT 2.99 x10e6/uL (4.3-5.7); RED CELL DISTRIBUTION WIDTH 13.5 % (11.7-14.4)
--- NOTE | 2019-03-07 19:37 | NUR ---
Called Dr. Enoc Soto to make him aware patient white blood count 8.64 and temp 100.0 tympanic, glucose 356 received orders it is ok to discharge patient home. Instruct patient to resume his Levemir HS, and his Levemir morning dose, and to resume Glipizide dose. Do not take Metformin, or Actos until he follow up with his primary care doctor and Dr. Peralta. Patient and his family verbalized understanding.
--- NOTE | 2019-03-07 19:54 | NUR ---
Discharged home instructed patient to follow up with Dr. Peralta and primary care doctor and cardiology. Patient and family verbalized understanding of discharge instructions.
== END 2019-03-07 19:55 | disposition home health service (06) | DRG 246 ==
LOC: ER 17:29 → ERHOLD 18:17 → IMCU 21:39
PROVIDERS: ADMIT Internal Medicine; ATTEND Internal Medicine
PROC: 027034Z Dilation of Coronary Artery, One Artery with Drug-eluting Intraluminal Device, Percutaneous Approach (ICD-10-PCS; principal; 2019-03-05)
PROC: 4A023N7 Measurement of Cardiac Sampling and Pressure, Left Heart, Percutaneous Approach (ICD-10-PCS; 2019-03-05)
PROC: B2111ZZ Fluoroscopy of Multiple Coronary Arteries using Low Osmolar Contrast (ICD-10-PCS; 2019-03-05)
PROC: B2151ZZ Fluoroscopy of Left Heart using Low Osmolar Contrast (ICD-10-PCS; 2019-03-05)
DX: I21.4 Non-ST elevation (NSTEMI) myocardial infarction (principal); I50.23 Acute on chronic systolic (congestive) heart failure; N17.9 Acute kidney failure, unspecified; I13.0 Hypertensive heart and chronic kidney disease with heart failure and stage 1 through stage 4 chronic kidney disease, or unspecified chronic kidney disease; N18.3 Chronic kidney disease, stage 3 (moderate); Z68.35 Body mass index [BMI] 35.0-35.9, adult; I12.9 Hypertensive chronic kidney disease with stage 1 through stage 4 chronic kidney disease, or unspecified chronic kidney disease; E11.22 Type 2 diabetes mellitus with diabetic chronic kidney disease; Z79.4 Long term (current) use of insulin; E66.01 Morbid (severe) obesity due to excess calories; I25.10 Atherosclerotic heart disease of native coronary artery without angina pectoris; Z95.5 Presence of coronary angioplasty implant and graft; D63.1 Anemia in chronic kidney disease; E78.5 Hyperlipidemia, unspecified
CPT/HCPCS: 36415; 70450; 71045; 76770; 80048; 80053; 80061; 81001; 82550; 82553; 82948; 83036; 83880; 84484; 85025; 85610; 85730; 92928; 93005; 93306; 93458; 96360; 96372; 97139; 99152; 99153; 99284; C1725; C1769; C1874; C1887; J1644; J1815; J2001; J2250; J2270; J2405; J3010; J7030; Q9967

== ENCOUNTER 2019-03-08 11:19 | Inpatient (IN) | payer MEDICARE ==
[~2019-03-08] VITALS: Ht 172.7 cm; Wt 99.8 kg
[2019-03-08] VITALS (10 sets, daily range): BP systolic 92–141; BP diastolic 55–84
[~2019-03-08 11:19] MED LIST changes: +ASPIR 8181 MG PO; +ATORVASTATIN CA20 MG PO; +Atorvastatin PO; +CARVEDILOL3.125 MG PO; +CYCLOBENZAPRINE 5 MG; +CYCLOBENZAPRINE10 MG PO; +MAGNESIUM OXID400 MG PO; +METFORMIN HCL500 M2 PO; +NAPROXEN250 MG PO; +PEPCID20 MG PO; +PIOGLITAZONE30 MG PO; +PLAVIX75 MG PO; +[UNRECOGNIZED DRUG - OTHER]
[2019-03-08] MEDS ORDERED: SODIUM CHLORIDE 0.9% 500ML 500 ML IV STA (11:22)
[2019-03-08 11:44] LABS: BASOPHILS % 0.2 % (0.0-1.0); HEMATOCRIT 28.3 % (38.2-49.6); HEMOGLOBIN 9.1 g/dL (14.0-18.0); LYMPHOCYTES # (AUTO) 0.9 (1.0-3.2); LYMPHOCYTES % 11.6 % (18.0-39.1); MEAN CORPUSCULAR HGB CONC 32.2 g/dL (31-35); MEAN CORPUSCULAR VOLUME 96.3 fL (81-99); MONOCYTES % 12.2 % (4.4-11.3); NEUTROPHILS # (AUTO) 6.1 (2.1-6.9); NEUTROPHILS % 75.5 % (38.7-80.0); PLATELET COUNT 176 x10e3/uL (140-360); RED BLOOD COUNT 2.94 x10e6/uL (4.3-5.7); RED CELL DISTRIBUTION WIDTH 13.6 % (11.7-14.4)
[2019-03-08 12:13] LABS: ALBUMIN 3.2 g/dL (3.5-5.0); ANION GAP 18.8 mmol/L (8-16); CALCIUM 9.3 mg/dL (8.4-10.2); CREATININE, SERUM 2.24 mg/dL (0.72-1.25); POTASSIUM 4.8 mmol/L (3.5-5.1)
--- NOTE | 2019-03-08 12:14 | NUR ---
medication reconcilation reviewed with family
[2019-03-08 12:18] LABS: CREATINE KINASE MB 6.6 ng/mL (0-5.0)
--- NOTE | 2019-03-08 12:43 | Diagnostic Imaging Report ---
Chest, portable AP view History: Dyspnea Comparison: 03/07/2019 IMPRESSION: The cardiac silhouette is stable in size. There is mild interstitial edema and pulmonary vascular congestion. Bibasilar atelectasis is present. No focal consolidation, sizable pleural effusion, or pneumothorax. Left subclavian pacemaker in place. Signed by: Surendra Mahoney MD on 03/08/2019 12:40 PM
--- NOTE | 2019-03-08 12:59 | Diagnostic Imaging Report ---
EXAMINATION: Head CT HISTORY: Dizziness, dyspnea COMPARISON: Head CT 03/06/2019 TECHNIQUE: Multidetector axial images were obtained without contrast from the foramen magnum to the vertex . The images were reconstructed using brain and bone algorithms. Thin section brain images were reformatted into coronal and sagittal planes. Image quality: Motion/streaking artifact limits the evaluation of the skull base and posterior cranial fossa. Dose modulation, iterative reconstruction, and/or weight based adjustment of the mA/kV was utilized to reduce the radiation dose to as low as reasonably achievable. FINDINGS: Parenchyma: 1. Stable mild white matter chronic microvascular ischemic changes. 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 2. No mass or hemorrhage. No CT evidence of acute territorial vascular insult. Extra-axial spaces:No abnormal density. No extra-axial fluid collections Brain volume: Normal for age. Ventricles: No hydrocephalus or displacement. Arteries: No density suggestive of thrombus. Dural sinuses: No abnormal density. Extra-axial spaces: No abnormal density. Foramen magnum: No mass, Chiari malformation, or basilar invagination. Sella: No obvious mass. Paranasal/mastoid sinuses: Imaged portions unremarkable. Skull/Scalp: No lytic or blastic lesions. No fractures. IMPRESSION: 1. No acute intraparenchymal hemorrhage or cortical infarcts. 2. Mild chronic microvascular ischemic changes, stable compared to head CT of 03/06/2019. Signed by: Dr. Roxana Morrison M.D. on 03/08/2019 12:56 PM
--- NOTE | 2019-03-08 13:00 | NUR ---
PATIENT BACK FROM RADIOLOGY. PLACED BACK ON BIPAP. O2 50%, IPAP 12/EPAP 6, RATE 12. PATIENT TOLERATING. FAMILY AT BEDSIDE
--- NOTE | 2019-03-08 13:30 | Diagnostic Imaging Report ---
CT of the chest, abdomen, and pelvis History: Shortness of breath, abdominal discomfort Comparison: None. Technique: Multidetector CT scanning of the chest, abdomen and pelvis was performed from the level of the thoracic inlet to the inferior pubic ramus, without contrast DOSE REDUCTION: The examination was performed according to departmental dose-optimization program which includes automated exposure control, adjustment of the mA and/or kV according to patient size and/or use of iterative reconstruction technique. Discussion: Chest findings: There is no axillary, mediastinal, or hilar lymphadenopathy. The visualized portions of the thyroid gland are within normal limits. The heart is mildly enlarged. There is no pericardial effusion. Coronary artery calcifications are noted. Multiple stents are noted in the LAD. A left subclavian pacemaker is in place. The thoracic aorta is of normal course and caliber. The trachea and central airways are clear. There is mild interstitial edema. Bibasilar dependent atelectasis is present. There is no consolidation. No pulmonary mass. The pleural spaces are clear. There is no pleural effusion or pneumothorax. Abdomen and pelvis findings: No suspicious focal hepatic lesions are identified. Calcified granuloma seen in the right hepatic lobe. The gallbladder is present nondistended. Small calcified gallstone is identified. There is no intrahepatic or extrahepatic ductal dilatation. The spleen is within normal limits. The bilateral adrenal glands are unremarkable. There is fatty atrophy of the pancreas. There is no pancreatic ductal dilatation. There is no hydroureteronephrosis. No renal calculi are identified. The stomach, small, and large bowel are nondistended. There is no bowel wall thickening. The appendix is normal. There are scattered colonic diverticula without evidence of acute diverticulitis. The abdominal aorta is of normal course and caliber demonstrates extensive atherosclerotic calcifications. The urinary bladder is within normal limits. The prostate is not enlarged. No abdominal or retroperitoneal lymph nodes are identified. There are no acute osseous abnormalities. Multilevel degenerative changes of the thoracolumbar spine are present. There is hyperostosis of the thoracic spine. IMPRESSION: 1. Mild interstitial edema and bibasilar atelectasis. 2. Atherosclerotic coronary artery disease. Status post multiple stents in the LAD. 3. Cholelithiasis without evidence of cholecystitis. 4. Colonic diverticulosis without evidence of acute diverticulitis. Signed by: Surendra Mahoney MD on 03/08/2019 1:26 PM
[2019-03-08] MEDS ORDERED: ENOXAPARIN SODIUM INJ 100 MG/ML SYR SC ONE (14:15)
--- NOTE | 2019-03-08 14:18 | NUR ---
dr tellez at pt bedside
[2019-03-08] MEDS ORDERED: MORPHINE SULFATE INJ 4 MG/ML INJ 1ML IV PRN (14:30)
[2019-03-08] MEDS ORDERED: MORPHINE SULFATE 2 MG/ML SYR 1ML IV PRN (14:30)
[2019-03-08] MEDS ORDERED: ONDANSETRON HCL INJ 2MG/ML 2ML 2 MG/ML VIAL IV PRN (14:30)
--- NOTE | 2019-03-08 14:34 | NUR ---
H&P cc: SOB HPI: 88yoM, recently d/c yesterday, now with worsening SOB, placed on BIPAP. PAST MEDICAL HISTORY: PNA, CKD3 due to DM2, HTN, Morbid obesity, CAD s/p stent, BPPV, NSTEMI, Systolic CHF LVEF 35% in 02/2019, NSTEMI, SURGICAL HISTORY: Coronary stent, FAMILY HISTORY: Hypertension and diabetes. SOCIAL HISTORY: No drugs. No alcohol. Does not smoke. Good social support. He is . Meds; see MAR ROS: no f/c/s/N/V/D/PETERSEN/vision changes/skin rash/confusion/agitation/back pain v/s; revd PE tired appearing; BIPAP in place anicteric REDUCED BS soft nt nd no e/t; TENDER LEFT ANKLE skin dry n. affect a&ox3; wheeler labs/meds revd A/P: NSTEMI CAD with hx stent CKD3 due to DM2 Systolic CHF LVEF 35% Morbid obesity BMI 35 HTN HLD PLAN DIurese; BIPAP Restart home meds Prop: heparin/pepcid dispo f/u Johnny Soto MD, PhD.
--- NOTE | 2019-03-08 14:41 | NUR ---
ADDENDUM to H&P cc: SOB HPI: 88yoM, recently d/c yesterday, now with worsening SOB, placed on BIPAP. PAST MEDICAL HISTORY: PNA, CKD3 due to DM2, HTN, Morbid obesity, CAD s/p stent, BPPV, NSTEMI, Systolic CHF LVEF 35% in 02/2019, NSTEMI s/p Stent to LAD 02/2019 SURGICAL HISTORY: Coronary stent, FAMILY HISTORY: Hypertension and diabetes. SOCIAL HISTORY: No drugs. No alcohol. Does not smoke. Good social support. He is . Meds; see MAR ROS: no f/c/s/N/V/D/PETERSEN/vision changes/skin rash/confusion/agitation/back pain v/s; revd PE tired appearing; BIPAP in place anicteric REDUCED BS soft nt nd no e/t; TENDER LEFT ANKLE skin dry n. affect a&ox3; wheeler labs/meds revd A/P: Acute resp failure Pulmonary Edema Recent NSTEMI CAD with hx stent, also stent to LAD 02/2019 CKD3 due to DM2 Systolic CHF LVEF 35% Morbid obesity BMI 35 HTN HLD PLAN DIurese; BIPAP Restart home meds Prop: heparin/pepcid dispo f/u Johnny Soto MD, PhD
[2019-03-08] MEDS ORDERED: MECLIZINE HCL 12.5 MG TAB PO PRN (14:45)
[2019-03-08] MEDS ORDERED: NON-FORMULARY MEDICATION (Benzonatate (Tessalon Perle) 100 MG) PO PRN (14:45)
[2019-03-08] MEDS ORDERED: BENZONATATE 100 MG CAP PO PRN (15:00)
[2019-03-08 15:05] LABS: ABG HCO3 29 mmol/L (23-28); ABG PCO2 46 mmHg (41-51); ABG PH 7.42 (7.31-7.41); ABG PO2 206 mmHg (80-105)
--- NOTE | 2019-03-08 15:18 | NUR ---
dr. gustavo perez at pt bedside
--- NOTE | 2019-03-08 15:39 | Diagnostic Imaging Report ---
Left ankle, 3 views Clinical indication: Ankle pain Comparison: None Findings: 3 views of the left ankle were obtained. There is no radiographic evidence of acute fracture or dislocation. The ankle mortise is intact. Degenerative changes of the right medial malleolus are present. Plantar calcaneal posterior calcaneal these findings are present. Vascular calcifications are noted. Impression: No acute osseous abnormality. Signed by: Surendra Mahoney MD on 03/08/2019 3:36 PM
[2019-03-08] MEDS ORDERED: FUROSEMIDE INJ 10 MG/ML 4 ML VIAL IV ONE (15:45)
[2019-03-08] MEDS ORDERED: DEXTROSE 50% SYRINGE 50 ML IV PRN (15:45)
[2019-03-08] MEDS: INSULIN LISPRO 100 UNIT/1 ML 3ML VIAL SQ SCH ×2 (16:48→21:11)
[2019-03-08] MEDS: CARVEDILOL 3.125 MG TAB PO SCH (16:52)
--- NOTE | 2019-03-08 18:15 | NUR ---
PATIENT INSISTING ON GETTING OUT OF BED TO TOILET. ONCE THERE, HE STATED "I FEEL LIKE IM GOING TO PASS OUT". ASSISTED PATIENT BACK TO BED AND PUT ON BI-PAP. PATIENT UNDERSTANDS THE REASON FOR STRICT BEDREST.
[2019-03-08 20:52] LABS: CREATINE KINASE MB 8.5 ng/mL (0-5.0)
[2019-03-08] MEDS ORDERED: NON-FORMULARY MEDICATION ([Atorvastatin] 40 MG) PO SCH (21:00)
[2019-03-08] MEDS ORDERED: INSULIN GLARGINE 100 UNITS/ML VIAL SQ SCH (21:00)
[2019-03-08] MEDS: ATORVASTATIN 40 MG TAB PO SCH (21:07)
--- NOTE | 2019-03-08 22:19 | Consultation ---
DATE OF CONSULTATION: 03/08/2019 Pulmonary Critical Care Consultation CHIEF COMPLAINT: Difficulty breathing and dizziness. HISTORY OF PRESENT ILLNESS: The patient is an 88-year-old man with a history of coronary artery disease. He also has a history of a prior pacemaker. He was admitted to the hospital last week with myocardial infarction. He required a stent placement in the LAD. He subsequently received some diuresis and went home. After returning home yesterday, he felt fine, but today he started to have dizziness. He then noted some difficulty breathing. There was also some abdominal swelling. He did not have any further chest pain or cough. He is not having any phlegm production. PAST SURGICAL HISTORY: 1. Status post pacemaker. 2. Status post coronary artery stents. PAST MEDICAL HISTORY: 1. Coronary artery disease. 2. Diabetes. 3. Hypertension. SOCIAL HISTORY: No history of alcohol or drug abuse. ALLERGIES: HISTORY OF ALLERGIES TO PENICILLIN. FAMILY HISTORY: Family history is significant for hypertension and diabetes. REVIEW OF SYSTEMS: He had some dizziness at home. There is no headache. He has no neck pain. He has no sore throat. He did not have chest pain. He did have some shortness of breath. He has no cough. There is no abdominal pain. He has no nausea or vomiting. He has some leg edema. PHYSICAL EXAMINATION: VITAL SIGNS: Blood pressure is 133/90, pulse ox is 98% on 2 L, respiratory rate is 20, and heart rate is 98. HEENT: Shows no facial swelling or erythema. LYMPHATIC: Shows no submandibular, cervical, or supraclavicular adenopathy. CARDIAC: Reveals regular rate and rhythm with normal S1 and S2. LUNGS: Auscultation of lungs reveals crackles in both lung sands. There is no wheezing. ABDOMEN: Soft, nontender. There is no rebound or guarding. EXTREMITIES: Examination of the extremities shows 1+ leg edema. LABORATORY DATA: White blood cell count is 8, and hemoglobin is 9.1. MCV is 96 and the platelet count is 176. Blood sugar is 492, and the CAO-lb-hkxyurwydi ratio is 37 to 2.24. Troponin I is 21 and the BNP is 778. AST is 66 and the ALT is 61. RADIOGRAPHIC DATA: Chest CT shows some mild interstitial edema and bibasilar atelectasis. There is coronary artery disease with prior stent placements. There is also cholelithiasis. IMPRESSION: 1. Acute on chronic respiratory failure. 2. Coronary artery disease with recent stent placement. 3. Chronic renal insufficiency, stage 3. 4. Acute on chronic systolic congestive heart failure. 5. Hypertension. PLAN: 1. Continue BiPAP. 2. Intravenous diuretics. 3. Continue to monitor creatinine. 4. Cardiology to re-evaluate the patient. MD ARVIND Dominguez/MODL /[id number]
[2019-03-09] VITALS (25 sets, daily range): BP systolic 89–133; BP diastolic 48–87
[2019-03-09] MEDS: CYCLOBENZAPRINE HCL 10 MG TAB PO PRN (00:26)
[2019-03-09 05:38] LABS: BASOPHILS % 0.1 % (0.0-1.0); EOSINOPHILS % 0.5 % (0.0-6.0); HEMATOCRIT 26.7 % (38.2-49.6); HEMOGLOBIN 8.6 g/dL (14.0-18.0); LYMPHOCYTES # (AUTO) 1.1 (1.0-3.2); LYMPHOCYTES % 13.6 % (18.0-39.1); MEAN CORPUSCULAR HEMOGLOBIN 30.9 pg (28-32); MEAN CORPUSCULAR HGB CONC 32.2 g/dL (31-35); MONOCYTES # (AUTO) 1.2 (0.2-0.8); MONOCYTES % 15.3 % (4.4-11.3); NEUTROPHILS # (AUTO) 5.5 (2.1-6.9); PLATELET COUNT 184 x10e3/uL (140-360); RED BLOOD COUNT 2.78 x10e6/uL (4.3-5.7); RED CELL DISTRIBUTION WIDTH 13.4 % (11.7-14.4)
[2019-03-09 05:53] LABS: ALBUMIN 3.2 g/dL (3.5-5.0); ANION GAP 18.4 mmol/L (8-16); CALCIUM 9.2 mg/dL (8.4-10.2); CREATININE, SERUM 1.95 mg/dL (0.72-1.25)
[2019-03-09 06:02] LABS: POTASSIUM 3.4 mmol/L (3.5-5.1)
--- NOTE | 2019-03-09 06:07 | NUR ---
LAB REPORTS GLUCOSE OF 57. PATIENT AROUSES EASILY AND IS ORIENTED X 3. PROVIDED WITH ORANGE JUICE TO DRINK. WILL MONITOR
--- NOTE | 2019-03-09 06:39 | NUR ---
IM-progress note O/N no events ROS: no f/c/s/N/V/D/PETERSEN/vision changes/skin rash/confusion/agitation/back pain v/s; revd PE tired appearing; BIPAP in place anicteric REDUCED BS soft nt nd no e/t; TENDER LEFT ANKLE skin dry n. affect a&ox3; wheeler labs/meds revd A/P: Acute resp failure Pulmonary Edema Recent NSTEMI CAD with hx stent, also stent to LAD 02/2019 CKD3 due to DM2 Systolic CHF LVEF 35% Morbid obesity BMI 35 HTN HLD PLAN DIurese; BIPAP Restart home meds Prop: heparin/pepcid dispo f/u Reduce insulin; cont BIPAP Johnny Soto MD, PhD
--- NOTE | 2019-03-09 07:41 | Diagnostic Imaging Report ---
EXAMINATION: CHEST SINGLE (PORTABLE) INDICATION: ^CHF ^[id number] ^[id number] COMPARISON: CT chest 03/08/2019 FINDINGS: AP view TUBES and LINES: Stable 2-lead pacemaker device overlying the left upper chest with leads overlying the right atrial appendage and right ventricle. LUNGS: Lungs are well inflated. Mild bilateral interstitial edema, stable. Bibasilar atelectasis, unchanged. No new consolidations. PLEURA: Trace bilateral pleural effusions, unchanged. No pneumothorax. HEART AND MEDIASTINUM: Moderate enlargement of the cardiac silhouette, stable. BONES AND SOFT TISSUES: No acute osseous lesion. Soft tissues are unremarkable. UPPER ABDOMEN: No free air under the diaphragm. IMPRESSION: Stable bilateral interstitial edema and trace bilateral pleural effusions. Signed by: Dr. Donna Caal M.D. on 03/09/2019 7:38 AM
[2019-03-09] MEDS: INSULIN LISPRO 100 UNIT/1 ML 3ML VIAL SQ SCH ×4 (07:55→21:18)
[2019-03-09] MEDS ORDERED: FUROSEMIDE INJ 10 MG/ML 4 ML VIAL IV ONE (08:15)
[2019-03-09] MEDS: CITALOPRAM HYDROBROMIDE 20 MG TAB PO SCH (08:23)
[2019-03-09] MEDS: ASPIRIN 81 MG CHEW TAB PO SCH (08:23)
[2019-03-09] MEDS: CARVEDILOL 3.125 MG TAB PO SCH ×2 (08:23→16:41)
[2019-03-09] MEDS: FAMOTIDINE 20 MG TAB PO SCH (08:24)
[2019-03-09] MEDS: CHOLECALCIFEROL 1,000 UNIT TAB PO SCH (08:24)
[2019-03-09] MEDS: MAGNESIUM OXIDE 400 MG TAB PO SCH (08:24)
[2019-03-09] MEDS: VITAMIN E 400 UNIT CAP PO SCH (08:24)
[2019-03-09] MEDS: CLOPIDOGREL BISULFATE 75 MG TAB PO SCH (08:24)
[2019-03-09] MEDS: OYST-CAL-D 500MG TABLET PO SCH (08:24)
[2019-03-09] MEDS: INSULIN GLARGINE 100 UNITS/ML VIAL SQ SCH ×2 (08:27→21:19)
[2019-03-09 08:38] LABS: BAND NEUTROPHILS % (MANUAL) 5 %; EOSINOPHILS % (MANUAL) 2 % (0-7); LYMPHOCYTES % (MANUAL) 24 % (19-48); METAMYELOCYTES % (MANUAL) 1 % (0-0); MONOCYTES % (MANUAL) 8 % (3.4-9.0); NEUTROPHILS % (MANUAL) 58 % (40-74); PLATELET ESTIMATE ADEQUATE; RBC MORPHOLOGY COMMENT NORMAL
[2019-03-09 08:39] LABS: PLATELET MORPHOLOGY COMMENT NORMAL
[2019-03-09] MEDS ORDERED: INSULIN GLARGINE 100 UNITS/ML VIAL SQ SCH (09:00)
[2019-03-09] MEDS: CHLORTHALIDONE 25 MG TAB PO SCH (09:00)
[2019-03-09] MEDS ORDERED: LOSARTAN POTASSIUM 100 MG TAB PO SCH (09:00)
--- NOTE | 2019-03-09 10:08 | NUR ---
PT APPEARED TO BE IN DEEP SLEEP, UNABLE TO DO DPA AT PRESENT
--- NOTE | 2019-03-09 11:53 | Progress Note ---
DATE: 03/09/2019 SUBJECTIVE: The patient was taken off BiPAP and placed on nasal cannula. He received diuretics and has negative liter. He feels better this morning. PHYSICAL EXAMINATION: VITAL SIGNS: The patient is afebrile. The blood pressure is 115/76 and the pulse is 85. Saturation is 99% on 4 L. HEENT: Shows no facial swelling or erythema. CARDIAC: Reveals a regular rate and rhythm with normal S1 and S2. LUNGS: Auscultation of lungs reveals few crackles at the bases. There is no wheezing. ABDOMEN: Soft and nontender. There is no rebound or guarding. EXTREMITIES: Shows no leg edema or calf tenderness. LABORATORY DATA: BUN to creatinine ratio is 42 to 1.95. Blood sugar is 126. Troponin I remains elevated at 21.8. Hemoglobin is 8.6 and the platelet count is 184. IMPRESSION: 1. Tjwgy-td-ejfsmzu respiratory failure. 2. Gtjnw-yz-mykfwdf systolic congestive heart failure. 3. Recent myocardial infarction with stent placement. 4. Chronic renal insufficiency, stage 3. 5. Anemia secondary to chronic blood loss. 6. Mildly elevated AST and ALT. PLAN: 1. Repeat Lasix today and continue diuresis. 2. Continue to monitor BUN, creatinine, and electrolytes. 3. Weaning completion of cardiac evaluation. 4. Monitor respiratory status and wean oxygen as tolerated. David Sifuentes MD [facility]/MODL /[id number]
[2019-03-09 14:41] LABS: CREATINE KINASE MB 6.7 ng/mL (0-5.0)
[2019-03-09] MEDS: FUROSEMIDE 20 MG TAB PO SCH (16:41)
[2019-03-09] MEDS: VALSARTAN/SACUBITRIL 24MG/26MG 1 EA TAB PO SCH (16:41)
--- NOTE | 2019-03-09 17:09 | Consultation ---
DATE OF CONSULTATION: 03/09/2019 Cardiology Consultation SUBJECTIVE: Mr. Nichols has less shortness of breath. He has been active in the ICU. PHYSICAL EXAMINATION: VITAL SIGNS: Afebrile, heart rate 84, blood pressure is 120/83, and O2 saturation is 94%. CARDIOVASCULAR: Regular rhythm. S3 gallop. Systolic murmur. LUNGS: Occasional rhonchi bilaterally. ABDOMEN: Mildly distended. LABORATORY DATA: Telemetry shows ventricularly paced rhythm. Hemoglobin is 8.6. Creatinine is 1.95. MEDICATIONS: Reviewed. ASSESSMENT: 1. Ogekq-iz-uhpsyyv systolic heart failure. 2. Recent zqp-MO-primdiy elevation myocardial infarction with LAD stent placement. RECOMMENDATIONS: Continue diuresis with intravenous Lasix. Continue dual-antiplatelet therapy as well as beta-hernesto. I will discontinue losartan and add Entresto for his heart failure. He will require an upgrade of his pacemaker. This was discussed extensively with the family. This can be performed as an outpatient. MD TANYA Rivera/DWAYNE /[id number]
[2019-03-09] MEDS: ATORVASTATIN 40 MG TAB PO SCH (21:14)
[2019-03-10] VITALS (13 sets, daily range): BP systolic 87–117; BP diastolic 51–76
[2019-03-10] MEDS ORDERED: ACETAMINOPHEN 325 MG TAB PO PRN (05:15)
[2019-03-10] MEDS ORDERED: ACETAMINOPHEN 325 MG TAB ONE (05:16)
[2019-03-10 05:54] LABS: BASOPHILS % 0.1 % (0.0-1.0); EOSINOPHILS # (AUTO) 0.1 (0.0-0.4); EOSINOPHILS % 0.8 % (0.0-6.0); HEMATOCRIT 27.2 % (38.2-49.6); HEMOGLOBIN 8.8 g/dL (14.0-18.0); LYMPHOCYTES # (AUTO) 1.2 (1.0-3.2); MEAN CORPUSCULAR HEMOGLOBIN 31.5 pg (28-32); MEAN CORPUSCULAR HGB CONC 32.4 g/dL (31-35); MEAN CORPUSCULAR VOLUME 97.5 fL (81-99); MONOCYTES # (AUTO) 1.4 (0.2-0.8); MONOCYTES % 18.3 % (4.4-11.3); NEUTROPHILS # (AUTO) 5.1 (2.1-6.9); NEUTROPHILS % 65.5 % (38.7-80.0); PLATELET COUNT 186 x10e3/uL (140-360); RED BLOOD COUNT 2.79 x10e6/uL (4.3-5.7); RED CELL DISTRIBUTION WIDTH 13.2 % (11.7-14.4)
[2019-03-10] MEDS: FUROSEMIDE 20 MG TAB PO SCH ×2 (06:31→16:17)
[2019-03-10 06:37] LABS: ALBUMIN 3.1 g/dL (3.5-5.0); ANION GAP 16.4 mmol/L (8-16); CALCIUM 8.6 mg/dL (8.4-10.2); CREATININE, SERUM 1.73 mg/dL (0.72-1.25); POTASSIUM 3.4 mmol/L (3.5-5.1)
[2019-03-10] MEDS: INSULIN LISPRO 100 UNIT/1 ML 3ML VIAL SQ SCH ×4 (07:30→21:00)
--- NOTE | 2019-03-10 07:36 | Diagnostic Imaging Report ---
EXAMINATION: CHEST SINGLE (PORTABLE) INDICATION: CHF. COMPARISON: Chest radiograph 03/09/[address] Chest 03/08/2019. FINDINGS: AP view TUBES and LINES: Stable left-sided pacemaker. LUNGS: Low lung volumes. Persistent perihilar and interstitial opacities. Mild patchy bibasilar opacities, likely atelectasis. No new consolidation. PLEURA: Possible trace bilateral pleural effusions. No pneumothorax. HEART AND MEDIASTINUM: Moderate enlargement of the cardiac silhouette, stable. BONES AND SOFT TISSUES: No acute osseous abnormality. UPPER ABDOMEN: No free air under the diaphragm. IMPRESSION: Stable pulmonary interstitial edema and possible trace bilateral pleural effusions. Signed by: Dr. Sandy Ceron MD on 03/10/2019 7:33 AM
[2019-03-10] MEDS: ASPIRIN 81 MG CHEW TAB PO SCH (08:15)
[2019-03-10] MEDS: CITALOPRAM HYDROBROMIDE 20 MG TAB PO SCH (08:16)
[2019-03-10] MEDS: CHLORTHALIDONE 25 MG TAB PO SCH (08:17)
[2019-03-10] MEDS: MAGNESIUM OXIDE 400 MG TAB PO SCH (08:17)
[2019-03-10] MEDS: CLOPIDOGREL BISULFATE 75 MG TAB PO SCH (08:17)
[2019-03-10] MEDS: VITAMIN E 400 UNIT CAP PO SCH (08:17)
[2019-03-10] MEDS: OYST-CAL-D 500MG TABLET PO SCH (08:17)
[2019-03-10] MEDS: FAMOTIDINE 20 MG TAB PO SCH (08:17)
[2019-03-10] MEDS: CHOLECALCIFEROL 1,000 UNIT TAB PO SCH (08:19)
[2019-03-10] MEDS: VALSARTAN/SACUBITRIL 24MG/26MG 1 EA TAB PO SCH ×2 (08:22→16:17)
[2019-03-10] MEDS: CARVEDILOL 3.125 MG TAB PO SCH ×2 (08:22→16:18)
[2019-03-10] MEDS: INSULIN GLARGINE 100 UNITS/ML VIAL SQ SCH ×2 (08:23→21:14)
--- NOTE | 2019-03-10 09:53 | NUR ---
Received patient via bed. AAOx4 to time, person, place, situation. Respirations even and unlabored. O2 2L NC. Telemetry #1 paced 83. Denies chest pain. Oriented patient to room. Instructed to use call light for assistance. Voiced understanding
--- NOTE | 2019-03-10 10:10 | NUR ---
IM-progress note O/N no events ROS: no f/c/s/N/V/D/PETERSEN/vision changes/skin rash/confusion/agitation/back pain v/s; revd PE tired appearing; BIPAP in place anicteric REDUCED BS soft nt nd no e/t; TENDER LEFT ANKLE skin dry n. affect a&ox3; wheeler labs/meds revd A/P: Acute resp failure Pulmonary Edema Recent NSTEMI CAD with hx stent, also stent to LAD 02/2019 CKD3 due to DM2 Systolic CHF LVEF 35% Morbid obesity BMI 35 HTN HLD PLAN DIurese; BIPAP Restart home meds Prop: heparin/pepcid dispo f/u Reduce insulin; cont BIPAP 03/10 cont care; Johnny Soto MD, PhD
--- NOTE | 2019-03-10 10:38 | NUR ---
aware K3.4
--- NOTE | 2019-03-10 10:54 | Progress Note ---
DATE: 03/10/2019 SUBJECTIVE: The patient feels better today. He is not having any dyspnea or chest pain. He does not complain of lightheadedness. PHYSICAL EXAMINATION: VITAL SIGNS: The blood pressure is 98/51 and saturation is 98%. He is on 4 L. HEENT: Shows no facial swelling or erythema. CARDIAC: Reveals a regular rate and rhythm with normal S1 and S2. LUNGS: Auscultation of lungs reveals clear breath sounds bilaterally. There is no wheezing. ABDOMEN: Soft and nontender. There is no rebound or guarding. EXTREMITIES: Shows no leg edema or calf tenderness. There is no cyanosis or clubbing. SKIN: Shows no rashes. NEUROLOGICAL: Shows no focal abnormalities. IMPRESSION: 1. Khomy-zs-zfnrvln systolic congestive heart failure. 2. Recent myocardial infarction and stent placement. 3. Chronic renal insufficiency, stage 3. 4. Anemia secondary to chronic blood loss. PLAN: 1. Continue diuresis. 2. Continue to monitor creatinine and electrolytes. 3. Transfer to medical floor with telemetry. 4. Continue to wean oxygen. David Sifuentes MD [facility]/DWAYNE /[id number]
[2019-03-10] MEDS: CYCLOBENZAPRINE HCL 10 MG TAB PO PRN (12:32)
--- NOTE | 2019-03-10 14:57 | NUR ---
left knee swollen and warm to touch. Patient's son states " My father had a fall at home. He has been complaining of knee pain since then." Dr. Soto notified. See orders.
--- NOTE | 2019-03-10 17:32 | Diagnostic Imaging Report ---
Exam: Left knee radiographs-3 views Clinical History: Knee pain. Comparison: None. Findings/Impression: No evidence of acute fracture or malalignment. There is soft tissue edema in the medial aspect of the knee. Moderate suprapatellar joint effusion. There are moderate medial compartment predominant tricompartmental degenerative changes with prominent osteophytes. Atherosclerotic vascular calcifications. Signed by: Dr. Sandy Ceron MD on 03/10/2019 5:29 PM
--- NOTE | 2019-03-10 17:40 | NUR ---
Notified of left knee xray results
--- NOTE | 2019-03-10 19:17 | NUR ---
Report given to oncoming nurse of patient's status. No s/s of acute distress noted. Side rails upx2, call light within reach, bed alarm on.
[2019-03-10] MEDS: ATORVASTATIN 40 MG TAB PO SCH (21:14)
[2019-03-11] VITALS (7 sets, daily range): BP systolic 100–108; BP diastolic 50–70
[2019-03-11] MEDS: FUROSEMIDE 20 MG TAB PO SCH ×2 (05:57→17:00)
--- NOTE | 2019-03-11 07:25 | NUR ---
IM-progress note O/N no events ROS: no f/c/s/N/V/D/PETERSEN/vision changes/skin rash/confusion/agitation/back pain v/s; revd PE tired appearing; BIPAP in place anicteric REDUCED BS soft nt nd no e/t; TENDER LEFT ANKLE skin dry n. affect a&ox3; wheeler labs/meds revd A/P: Acute resp failure Pulmonary Edema Recent NSTEMI CAD with hx stent, also stent to LAD 02/2019 CKD3 due to DM2 Systolic CHF LVEF 35% Morbid obesity BMI 35 HTN HLD PLAN DIurese; BIPAP Restart home meds Prop: heparin/pepcid dispo f/u Reduce insulin; cont BIPAP 03/10 cont care; 03/11 check labs; [facility] nichol Soto MD, PhD
[2019-03-11 07:59] LABS: ANION GAP 15.4 mmol/L (8-16); CALCIUM 8.9 mg/dL (8.4-10.2); CREATININE, SERUM 1.68 mg/dL (0.72-1.25); POTASSIUM 3.4 mmol/L (3.5-5.1)
[2019-03-11] MEDS: INSULIN LISPRO 100 UNIT/1 ML 3ML VIAL SQ SCH ×4 (08:30→21:00)
[2019-03-11] MEDS: INSULIN GLARGINE 100 UNITS/ML VIAL SQ SCH ×2 (08:30→21:01)
[2019-03-11] MEDS: OYST-CAL-D 500MG TABLET PO SCH (10:00)
[2019-03-11] MEDS: CLOPIDOGREL BISULFATE 75 MG TAB PO SCH (10:00)
[2019-03-11] MEDS: MAGNESIUM OXIDE 400 MG TAB PO SCH (10:00)
[2019-03-11] MEDS: CHLORTHALIDONE 25 MG TAB PO SCH (10:00)
[2019-03-11] MEDS: CARVEDILOL 3.125 MG TAB PO SCH ×2 (10:00→16:45)
[2019-03-11] MEDS: VITAMIN E 400 UNIT CAP PO SCH (10:00)
[2019-03-11] MEDS: VALSARTAN/SACUBITRIL 24MG/26MG 1 EA TAB PO SCH ×2 (10:00→16:45)
[2019-03-11] MEDS: FAMOTIDINE 20 MG TAB PO SCH (10:00)
[2019-03-11] MEDS: CITALOPRAM HYDROBROMIDE 20 MG TAB PO SCH (10:00)
[2019-03-11] MEDS: CHOLECALCIFEROL 1,000 UNIT TAB PO SCH (10:00)
[2019-03-11] MEDS: ASPIRIN 81 MG CHEW TAB PO SCH (10:15)
--- NOTE | 2019-03-11 10:28 | Progress Note ---
DATE: 03/11/2019 SUBJECTIVE: The patient was transferred out of the Intensive Care Unit yesterday. He appears better. He is not having congestion or dyspnea. He is sitting upright and eating. PHYSICAL EXAMINATION: VITAL SIGNS: Stable. HEENT: Shows no facial swelling or erythema. CARDIAC: Reveals a regular rate and rhythm with normal S1, S2. LUNGS: Auscultation of lungs reveals clear breath sounds bilaterally. There is no wheezing. ABDOMEN: Soft, nontender. There is no rebound or guarding. EXTREMITIES: Show no leg edema or calf tenderness. There is no cyanosis or clubbing. IMPRESSION: 1. Wbilr-ua-zxlmppq systolic congestive heart failure. 2. Recent myocardial infarction with stent placement. 3. Chronic renal insufficiency, stage III. 4. Anemia secondary to chronic blood loss. PLAN: 1. Continue current cardiac regimen. 2. Ambulate as tolerated. 3. Wean oxygen. 4. Discussed disposition with Dr. Soto and Case Management. MD ARVIND Dominguez/DWAYNE /[id number]
--- NOTE | 2019-03-11 13:28 | NUR ---
WOUND CARE CONSULT 88 YO MALE HX DIZZINESS , RENAL INSUF KESHIA 18 ON CONSERVATIVE PUP AND VISCO MATRESS LABS : WBS- 7.85, HGB- 8.8 , GLUCOSE - 251 BLOOD CULTURE SHOWS NO GROWTH SKIN ASSESSMENT COMPLETE NO PRESSURE RELATED REDNESS OR BREAKDOWN NOTED PATIENT PRESENTS WITH SKIN TEARS TO LEFT ARM FOLLOWS DISTAL LEFT ARM 4CM X1CM X .1CM MEDIAL LEFT ARM 3CM X .8CM X.1 CM PROXIMAL LEFT ARM 1CM X .8CM X .1CM RECOMMENDATIONS : NURSING TO CONTINUE TO MAINTAIN CONSERVATIVE PUP STATUS AND INTERVENTIONS WITH VISCO MATTRESS NURSING TO CONTINUE TO ASSIST PATIENT OUT OF BED FOR MEALS AND MUCH TOLERATED NURSING TO APPLY DAILY PURACOL (COLLAGEN) TO LEFT ARM SKIN TEARS X 3 AND COVER WITH FOAM DRESSING Addendum: 03/11/19 at 1337 by Niko Vuong RN Amended: Links added.
[2019-03-11] MEDS: ATORVASTATIN 40 MG TAB PO SCH (20:57)
[2019-03-12] VITALS (9 sets, daily range): BP systolic 99–118; BP diastolic 50–62
[2019-03-12] MEDS: FUROSEMIDE 20 MG TAB PO SCH (05:46)
[2019-03-12] MEDS: INSULIN LISPRO 100 UNIT/1 ML 3ML VIAL SQ SCH ×4 (08:30→20:58)
--- NOTE | 2019-03-12 08:51 | Progress Note ---
DATE: 03/12/2019 SUBJECTIVE: The patient feels better. His oxygen is down to 2 liters. He is not complaining of lightheadedness or cough. PHYSICAL EXAMINATION: VITAL SIGNS: Stable. CARDIAC: Reveals a regular rate and rhythm with a normal S1 and S2. There are no murmurs or rubs. RESPIRATORY: Auscultation of lungs reveal a few crackles at the bases. ABDOMEN: Soft and nontender. There is no rebound or guarding. EXTREMITIES: Show no leg edema or calf tenderness. There is no cyanosis or clubbing. SKIN: Shows no rashes. NEUROLOGICAL: Shows no focal abnormalities. LABORATORY DATA: The blood sugar is 150 to 250 range. IMPRESSION: 1. Acute on chronic systolic congestive heart failure. 2. Recent myocardial infarction with stent placement. 3. Chronic renal insufficiency, stage 3. 4. Anemia secondary to chronic blood loss. 5. Hypertension. PLAN: 1. Continue current cardiac regimen. 2. Wean oxygen. 3. Out of bed as tolerated. 4. The patient being evaluated for mcc. MD ARVIND Dominguez/DWAYNE /[id number]
[2019-03-12] MEDS: CLOPIDOGREL BISULFATE 75 MG TAB PO SCH (09:03)
[2019-03-12] MEDS: MAGNESIUM OXIDE 400 MG TAB PO SCH (09:03)
[2019-03-12] MEDS: VITAMIN E 400 UNIT CAP PO SCH (09:03)
[2019-03-12] MEDS: VALSARTAN/SACUBITRIL 24MG/26MG 1 EA TAB PO SCH ×2 (09:03→17:05)
[2019-03-12] MEDS: INSULIN GLARGINE 100 UNITS/ML VIAL SQ SCH ×2 (09:03→20:58)
[2019-03-12] MEDS: OYST-CAL-D 500MG TABLET PO SCH (09:03)
[2019-03-12] MEDS: ASPIRIN 81 MG CHEW TAB PO SCH (09:03)
[2019-03-12] MEDS: CARVEDILOL 3.125 MG TAB PO SCH ×2 (09:03→17:05)
[2019-03-12] MEDS: CHLORTHALIDONE 25 MG TAB PO SCH (09:03)
[2019-03-12] MEDS: CITALOPRAM HYDROBROMIDE 20 MG TAB PO SCH (09:03)
[2019-03-12] MEDS: FAMOTIDINE 20 MG TAB PO SCH (09:03)
[2019-03-12] MEDS: CHOLECALCIFEROL 1,000 UNIT TAB PO SCH (09:03)
--- NOTE | 2019-03-12 15:20 | NUR ---
Removed nash per Dr. Mcdaniel. Patient is due to void. Instructed patient to use urinal for the first time so urine output can be measured. Patient verbalized understanding. Call light in reach
[2019-03-12] MEDS ORDERED: CITRATE OF MAGNESIA 300ML BOTTLE PO ONE (15:30)
[2019-03-12] MEDS ORDERED: DOCUSATE SODIUM 100 MG CAP PO ONE (15:30)
--- NOTE | 2019-03-12 17:00 | NUR ---
Patient spontaneously voided 125cc. Will continue to monitor urine output
--- NOTE | 2019-03-12 17:09 | Progress Note ---
DATE: 03/12/2019 Medicine Progress Note I am covering for Dr. Johnny Soto. SUBJECTIVE: The patient came in with complaints of underlying shortness of breath. He was just recently discharged by Dr. Soto after having elevated troponin. Apparently, he underwent a heart catheterization, had some stents placed and Cardiology was monitoring closely. He then got readmitted due to some shortness of breath. While here, Pulmonary and Cardiology have been evaluating the patient. He is currently on cardioprotective medications. He is still on oxygen, which has been arranged at home. PHYSICAL EXAMINATION: VITAL SIGNS: Temperature is 96, pulse 86, respiratory rate is 20, blood pressure 102/56, and pulse ox 93% on 3 liters nasal cannula. GENERAL: In no acute distress. Alert and oriented x3. Cooperative on examination. HEENT: Head, normocephalic and atraumatic. Eyes, pupils are equal, round, and reactive to light bilaterally. Extraocular movements intact bilaterally. Throat, no evidence of erythema or exudates in the posterior pharynx. Has poor dentition. NECK: Supple. Good range of motion. PULMONARY: Clear to auscultation bilaterally. There were no wheezing, rhonchi, or crackles appreciated. It has actually sounded pretty clear. CARDIOVASCULAR: Positive S1 and S2. No murmurs, rubs, or gallops appreciated. ABDOMEN: Soft, nondistended, and nontender to palpation. Bowel sounds present. MUSCULOSKELETAL: Strength is 5/5 throughout. No evidence of any muscle deficits on examination. No weakness appreciated. NEUROLOGIC: Cranial nerves II through XII grossly intact. No evidence of any neurological deficits on exam. SKIN: Intact. Warm to touch. Good cap refill. PSYCHIATRIC: Normal affect and mood. EXTREMITIES: No edema. Good range of motion throughout. LABORATORY FINDINGS: Show white count 7.8, hemoglobin 8.8, hematocrit 27, and platelets of 186. Yesterday's chemistry; sodium was 138, potassium was 3.4, chloride was 91, bicarbonate was 35, anion gap of 15, BUN was 37, creatinine was 1.68, calcium was 8.9, and total bilirubin was 0.7. His troponins were noted. MICROBIOLOGY: Blood cultures, no growth. IMAGING STUDIES: X-ray of the knee, flbwwrcd-sx-xkhh compartment predominantly tricompartmental degenerative changes with osteophytes seen. Chest x-ray on 03/10/2019, stable, pulmonary interstitial edema with possible trace bilateral pleural effusion. IMPRESSION: 1. Acute on chronic systolic heart failure. 2. Recent ST-elevation myocardial infarction, status post percutaneous coronary intervention with stent placement. 3. Chronic kidney disease, stage 3. 4. Anemia of chronic blood loss. 5. Hypertension. 6. Morbid obesity. PLAN: At this time, he does have some trace edema on examination, but his urine is very dark in nature. It seems like he may be intravascularly dry despite having some edema trace in which he is third-spacing. I will go ahead and just hold the Lasix for now. Chest x-ray, repeat labs now and in the morning. I did pull the Maria catheter and we will determine to see if he has any kind of obstruction. Once he is able to urinate, then we will consider no Maria catheter, but if he cannot, we will reinsert the Maria back and have a Urology consultation. I noted Cardiology's note, I recommended dual anti-platelet therapy, cardioprotective medications and then they added some Entresto. It does not seem like they are going to come back and evaluate him again based on the notes. No further workup needed by Pulmonary. The patient has home health, home PT/OT as well as home oxygen. I would like to get physical therapy to come work with the patient as well. Otherwise, we will continue same plan of care. MD JOE Campoverde/NESSAL /[id number]
--- NOTE | 2019-03-12 18:03 | Diagnostic Imaging Report ---
EXAM: CHEST SINGLE (PORTABLE) DATE: 03/12/2019 3:00 PM INDICATION: Shortness of breath COMPARISON: 03/10/2019 IMPRESSION: Left-sided pacing device identified in stable position. The trachea is midline. There has been slight interval decrease in perihilar opacities which may reflect resolving edema. There is no evidence for new large focal consolidation, pneumothorax, or significant pleural effusion. The cardiomediastinal silhouette is stable in appearance. No acute osseous abnormality is identified. Signed by: Dr. Roberto Ortiz MD on 03/12/2019 5:59 PM
--- NOTE | 2019-03-12 19:00 | NUR ---
Report and walking rounds completed, Patient sitting on side of bed watching TV. Call light within reach. No issues or concerns at this time. Will continue to monitor.
[2019-03-12] MEDS: ATORVASTATIN 40 MG TAB PO SCH (20:53)
[2019-03-13 00:39] VITALS: BP 107/58
[2019-03-13 05:27] LABS: BASOPHILS # (AUTO) 0.1 (0.0-0.1); BASOPHILS % 0.7 % (0.0-1.0); EOSINOPHILS # (AUTO) 0.1 (0.0-0.4); EOSINOPHILS % 1.8 % (0.0-6.0); HEMATOCRIT 30.4 % (38.2-49.6); HEMOGLOBIN 9.9 g/dL (14.0-18.0); LYMPHOCYTES # (AUTO) 1.7 (1.0-3.2); LYMPHOCYTES % 23.5 % (18.0-39.1); MEAN CORPUSCULAR HEMOGLOBIN 31.2 pg (28-32); MEAN CORPUSCULAR HGB CONC 32.6 g/dL (31-35); MEAN CORPUSCULAR VOLUME 95.9 fL (81-99); MONOCYTES # (AUTO) 1.2 (0.2-0.8); MONOCYTES % 17.2 % (4.4-11.3); NEUTROPHILS # (AUTO) 4.1 (2.1-6.9); NEUTROPHILS % 56.5 % (38.7-80.0); PLATELET COUNT 268 x10e3/uL (140-360); RED BLOOD COUNT 3.17 x10e6/uL (4.3-5.7); RED CELL DISTRIBUTION WIDTH 12.9 % (11.7-14.4)
[2019-03-13 05:48] LABS: ANION GAP 13.2 mmol/L (8-16); CALCIUM 8.9 mg/dL (8.4-10.2); CREATININE, SERUM 1.48 mg/dL (0.72-1.25); MAGNESIUM 2.7 MG/DL (1.3-2.1); POTASSIUM 3.2 mmol/L (3.5-5.1)
[2019-03-13 06:49] VITALS: BP 114/56
[2019-03-13] MEDS: INSULIN LISPRO 100 UNIT/1 ML 3ML VIAL SQ SCH (07:30)
[2019-03-13 07:44] VITALS: BP 123/57
[2019-03-13 07:46] VITALS: BP 123/57
[2019-03-13] MEDS: MAGNESIUM OXIDE 400 MG TAB PO SCH (09:00)
[2019-03-13] MEDS: OYST-CAL-D 500MG TABLET PO SCH (09:00)
[2019-03-13] MEDS: VITAMIN E 400 UNIT CAP PO SCH (09:00)
[2019-03-13] MEDS: CARVEDILOL 3.125 MG TAB PO SCH (09:00)
[2019-03-13] MEDS: CHLORTHALIDONE 25 MG TAB PO SCH (09:00)
[2019-03-13] MEDS: CLOPIDOGREL BISULFATE 75 MG TAB PO SCH (09:00)
[2019-03-13] MEDS: VALSARTAN/SACUBITRIL 24MG/26MG 1 EA TAB PO SCH (09:00)
[2019-03-13] MEDS: ASPIRIN 81 MG CHEW TAB PO SCH (09:00)
[2019-03-13] MEDS: FAMOTIDINE 20 MG TAB PO SCH (09:00)
[2019-03-13] MEDS: CHOLECALCIFEROL 1,000 UNIT TAB PO SCH (09:00)
[2019-03-13] MEDS: CITALOPRAM HYDROBROMIDE 20 MG TAB PO SCH (09:00)
[2019-03-13] MEDS: INSULIN GLARGINE 100 UNITS/ML VIAL SQ SCH (09:00)
--- NOTE | 2019-03-13 10:34 | Progress Note ---
DATE: 03/13/2019 SUBJECTIVE: The patient feels better. He has less dyspnea. He is not complaining of lightheadedness. He is eager to go home. PHYSICAL EXAMINATION: VITAL SIGNS: The blood pressure is 123/57 and the saturation is 99%. CARDIAC: Regular rate and rhythm with normal S1, S2. LUNGS: Auscultation of lungs reveals clear breath sounds bilaterally. There is no wheezing. ABDOMEN: Soft, nontender. There is no rebound or guarding. EXTREMITIES: No leg edema or calf tenderness. IMPRESSION: 1. Wgsfz-mx-jrmrlgm systolic congestive heart failure. 2. Recent myocardial infarction with stent placement. 3. Chronic renal insufficiency, stage 3. 4. Hypertension. 5. Anemia. PLAN: 1. Continue current cardiac regimen. 2. Wean oxygen. 3. Discussed disposition with Dr. Mcdaniel and Case Management. MD ARVIND Dominguez/DWAYNE /[id number]
[2019-03-13 11:27] VITALS: BP 107/56
[2019-03-13] MEDS ORDERED: LASIX40 MG PO (14:55)
[2019-03-13] MEDS ORDERED: PLAVIX75 MG PO (14:55)
[2019-03-13] MEDS ORDERED: POTASSIUM CHLO20 ME1 PO (14:55)
[2019-03-13] MEDS ORDERED: POTASSIUM CHLO10 ME1 PO (14:55)
[2019-03-13] MEDS ORDERED: [UNRECOGNIZED DRUG - OTHER] PO (14:59)
--- NOTE | 2019-03-13 15:00 | NUR ---
AC TO HEAD HOLDER SHE ARRANGED HOME HEALTH SO DISCHARGE THE PT
--- NOTE | 2019-03-13 15:03 | NUR ---
Spoke with pt's this morning. She stated that they do not want to go to any facilities. They want to go home with home health. Pt to discharge home today. Resumption order and clinical faxed to [facility] at [phone]. Spoke to Ludy with intake and informed her that pt will be discharging today. HOME HEALTH DISCHARGE NOTE PATIENT ADDRESS WHERE SERVICE WILL BE RECEIVED: [address] [place] [address], [place] [address] PATIENT CONTACT NUMBER: [phone] NAME OF HOME HEALTH COMPANY: [facility] TELEPHONE/FAX NUMBER OF COMPANY: P [phone] / F [phone] ADDRESS OF [employer]: [facility] [address], [place] [address] SERVICES TO RECEIVE: SN/PT/OT ANTICIPATED DATE SERVICES WILL BEGIN: March 14 or Please call the company above if you have not received a call to schedule a home visit within 24 hours of discharge.
--- NOTE | 2019-03-13 15:25 | NUR ---
PT WENT HOME IN SAFE CONDITION WITH HIS
--- NOTE | 2019-03-13 16:00 | NUR ---
AC TO RADIOLOGY US ON THE BREAST DOING ONLY ON OUT PATIENT BASIS THEY WANTED TO CANCEL THE ORDER PAGED DR BO TO NOTIFY THAT AND LEFT THE MESSAGE
--- NOTE | 2019-03-14 05:21 | Discharge Summary ---
FINAL DISCHARGE DIAGNOSES: 1. Acute on chronic systolic heart failure. 2. Recent STEMI, status post PCI with stent placement. 3. Chronic kidney disease, stage 3. 4. Anemia. 5. Hypertension. 6. Morbid obesity. 7. Medical noncompliance. CONSULTANTS: Cardiology and Pulmonary. VITAL SIGNS: Temperature 96.5, pulse 80, respiratory rate 22, blood pressure 107/86, and pulse ox 98% on 3 L nasal cannula. The patient is on chronic home O2. LABORATORY DATA: Lab findings show white count 7.2, hemoglobin 9.9, hematocrit 30, and platelets of 268. Chemistry sodium 135, potassium 3.3, chloride 91, bicarb 34, anion gap of 13, BUN 35, creatinine 1.48, glucose is 202, calcium is 8.9, and magnesium is 2.7. LFTs were within normal range. Albumin was 3.1. Troponins on admission was elevated at 17, but he recently had status post PCI on the previous discharge just a few days prior to being discharged. He was evaluated by Cardiology. No further workup needed. BNP 778. MICROBIOLOGY: Blood cultures were all negative. IMAGING STUDIES: CT brain, no acute intracranial hemorrhage or cortical infarction, otherwise negative CT brain. Chest CT shows mild interstitial edema and bibasilar atelectasis. Otherwise, there is coronary artery disease, status post multiple stents in the LAD. Cholelithiasis without evidence of cholecystitis. Colonic diverticulosis without evidence of acute diverticulitis. CT abdomen and pelvis, negative. Chest x-ray showed some mild interstitial edema. Ankle x-ray, negative. Knee x-ray has some osteoarthritis with osteophytes seen in the left knee. No evidence of acute fracture. Chest x-ray on 03/12/2019 shows much improved pulmonary edema. HOSPITAL COURSE: 88-year-old male, recent STEMI, status post left heart catheterization with PCI in the LAD on the previous discharge, now presents with complaints of underlying shortness of breath and dizziness. The patient was admitted and Pulmonary and Cardiology were consulted. The patient underwent IV diuretic diuresis. The patient maintained on cardioprotective medications. The patient was being treated for acute on chronic heart failure systolically as well as acute on chronic respiratory failure. The patient is on home O2 already. The patient maintained on diuretics, p.r.n. BiPAP, and nasal cannula. No further workup needed by Pulmonary. Cardiology came and evaluated the patient, recommended continue with same cardioprotective meds. Of note, continue with IV diuresis. His troponin was elevated, but this was from the prior discharge. No further workup needed and medications were adjusted by Cardiology. The patient was cleared for discharge by both consultants. On the day of discharge, vital signs were stable, labs reviewed and stable. The patient was seen, evaluated, and examined thoroughly on the day of discharge. No other complaints. The patient verbalized understanding and agreed to plan of care. A followup appointment as an outpatient with the primary care physician in 1 week and coordinating producer and manager emergency department in 2 weeks' time. The patient was cleared for discharge by both consultants. MEDICATIONS: See med reconciliation form. DISPOSITION: Home. CONDITION: Stable. DIET: Heart healthy. DISCHARGE INSTRUCTIONS: In the event of any worsening symptoms, the patient was advised to come back to the ED for further evaluation. TIME SPENT: Discharge summary took greater than 35 minutes. MD JOE Campoverde/DWAYNE /[id number]
[2019-03-24] MEDS ORDERED: SUCRALFATE1 G/10 ML NG (05:22)
[2019-03-24] MEDS ORDERED: PANTOPRAZOLE SO40 MG PO (05:22)
== END 2019-03-13 15:27 | disposition home or self-care (01) | DRG 280 ==
LOC: ER 11:19 → ERHOLD 14:16 → ICU 15:37 → MED/SURG2 03-10 09:46
PROVIDERS: ADMIT Internal Medicine; ATTEND Internal Medicine
DX: I13.0 Hypertensive heart and chronic kidney disease with heart failure and stage 1 through stage 4 chronic kidney disease, or unspecified chronic kidney disease (principal); J96.20 Acute and chronic respiratory failure, unspecified whether with hypoxia or hypercapnia; I21.4 Non-ST elevation (NSTEMI) myocardial infarction; I50.23 Acute on chronic systolic (congestive) heart failure; I25.10 Atherosclerotic heart disease of native coronary artery without angina pectoris; N18.3 Chronic kidney disease, stage 3 (moderate); Z68.35 Body mass index [BMI] 35.0-35.9, adult; D50.0 Iron deficiency anemia secondary to blood loss (chronic); I12.9 Hypertensive chronic kidney disease with stage 1 through stage 4 chronic kidney disease, or unspecified chronic kidney disease; Z91.19 Patient's noncompliance with other medical treatment and regimen; E66.01 Morbid (severe) obesity due to excess calories; K80.80 Other cholelithiasis without obstruction; K57.90 Diverticulosis of intestine, part unspecified, without perforation or abscess without bleeding; Z95.0 Presence of cardiac pacemaker; Z95.5 Presence of coronary angioplasty implant and graft; E11.22 Type 2 diabetes mellitus with diabetic chronic kidney disease; E78.5 Hyperlipidemia, unspecified
CPT/HCPCS: 36415; 36600; 70450; 71045; 71250; 74176; 76770; 80048; 80053; 80061; 81001; 82550; 82553; 82805; 82947; 82948; 83036; 83735; 83880; 84484; 85025; 85610; 85730; 87040; 92928; 93005; 93306; 93458; 94660; 94760; 96360; 96372; 97139; 99152; 99153; 99284; 99285; C1725; C1769; C1874; C1887; J1644; J1815; J1940; J2001; J2250; J2270; J2405; J3010; J7030; Q9967

== ENCOUNTER 2019-06-03 13:02 | Emergency (ER) | payer MEDICARE ==
[~2019-06-03] VITALS: Ht 172.7 cm; Wt 99.8 kg
[~2019-06-03 13:02] MED LIST changes: +LASIX40 MG PO; +PANTOPRAZOLE SO40 MG PO; +POTASSIUM CHLO10 ME1 PO; +POTASSIUM CHLO20 ME1 PO; +SUCRALFATE1 G/10 ML NG; +[UNRECOGNIZED DRUG - OTHER] PO
[2019-06-03] MEDS ORDERED: HYDROCODONE/APAP 5MG-325MG TAB PO ONE (14:00)
--- NOTE | 2019-06-03 14:41 | Diagnostic Imaging Report ---
EXAMINATION: SHOULDER LEFT COMPLETE INDICATION: Left shoulder pain COMPARISON: None FINDINGS: Internal and external rotation radiographs of the left shoulder demonstrate no acute fracture or dislocation. Alignment appears anatomic. Moderate degenerative changes involve the acromioclavicular and glenohumeral joints. Rotator cuff calcific tendinopathy. The visualized portions of the left lung are clear. Left chest pacer with leads partially visualized. Atherosclerotic calcifications of the thoracic aorta. IMPRESSION: No acute osseous injury. Moderate degenerative changes of the acromioclavicular and glenohumeral joints. Rotator cuff calcific tendinopathy. Signed by: Vern Sandhu MD on 06/03/2019 2:38 PM
[2019-06-03] MEDS ORDERED: ULTRAM50 MG PO (14:53)
== END 2019-06-03 16:00 | disposition home or self-care (01) ==
LOC: ER 13:02
DX: M25.512 Pain in left shoulder (principal); S43.52XA Sprain of left acromioclavicular joint, initial encounter; I10 Essential (primary) hypertension; E11.9 Type 2 diabetes mellitus without complications; J44.9 Chronic obstructive pulmonary disease, unspecified; E78.5 Hyperlipidemia, unspecified; I25.2 Old myocardial infarction; Z95.810 Presence of automatic (implantable) cardiac defibrillator; Z95.5 Presence of coronary angioplasty implant and graft
CPT/HCPCS: 99283

== ENCOUNTER 2020-01-09 14:50 | Inpatient (IN) | payer MEDICARE ==
[~2020-01-09] VITALS: Ht 175.3 cm; Wt 107.5 kg
[~2020-01-09 14:50] MED LIST changes: +ULTRAM50 MG PO
[2020-01-09] MEDS ORDERED: CEFEPIME 1GM/NS 0.9% 50 ML 50 ML IV STA (15:08)
[2020-01-09 15:46] LABS: BASOPHILS % 0.4 % (0.0-1.0); EOSINOPHILS % 0.3 % (0.0-6.0); HEMATOCRIT 33.2 % (38.2-49.6); HEMOGLOBIN 10.9 g/dL (14.0-18.0); LYMPHOCYTES # (AUTO) 1.5 (1.0-3.2); MEAN CORPUSCULAR HEMOGLOBIN 30.9 pg (28-32); MEAN CORPUSCULAR HGB CONC 32.8 g/dL (31-35); MEAN CORPUSCULAR VOLUME 94.1 fL (81-99); MONOCYTES # (AUTO) 1.2 (0.2-0.8); MONOCYTES % 16.2 % (4.4-11.3); NEUTROPHILS # (AUTO) 4.5 (2.1-6.9); NEUTROPHILS % 61.6 % (38.7-80.0); PLATELET COUNT 170 x10e3/uL (140-360); RED BLOOD COUNT 3.53 x10e6/uL (4.3-5.7); RED CELL DISTRIBUTION WIDTH 13.8 % (11.7-14.4)
[2020-01-09] MEDS ORDERED: LACTATED RINGER'S 1,000 ML INJ ONE (16:00)
[2020-01-09 16:04] LABS: ALBUMIN 3.6 g/dL (3.5-5.0); ALBUMIN/GLOBULIN RATIO 1.2 (0.8-2.0); ANION GAP 16.6 mmol/L (8-16); CALCIUM 9.1 mg/dL (8.4-10.2); CREATININE, SERUM 1.59 mg/dL (0.72-1.25); POTASSIUM 4.6 mmol/L (3.5-5.1)
[2020-01-09 17:48] VITALS: BP 114/60
[2020-01-09 18:36] VITALS: BP 114/60
[2020-01-09 19:15] VITALS: BP 114/60
[2020-01-09 20:00] VITALS: BP 115/74
[2020-01-09 21:00] VITALS: BP 115/74
[2020-01-09] MEDS: ALBUTEROL/IPRATROPIUM 3 ML NEB NEB PRN (23:00)
[2020-01-09] MEDS: INSULIN GLARGINE 100 UNITS/ML VIAL SQ SCH (23:00)
[2020-01-09 23:09] LABS: BILIRUBIN,URINE SMALL (NEGATIVE); CLARITY,URINE SL CLOUDY (CLEAR); COLOR,URINE YELLOW (YELLOW); KETONES,URINE TRACE (NEGATIVE); LEUKOCYTE ESTERASE ,URINE NEGATIVE (NEGATIVE); NITRITE,URINE NEGATIVE (NEGATIVE); PROTEIN,URINE DIPSTICK 2+ (NEGATIVE); URINE UROBILINOGEN 0.2 mg/dL (0.2 - 1)
[2020-01-09 23:11] LABS: AMORPHOUS SEDIMENT,URINE MODERATE (FEW); BACTERIA,URINE FEW /HPF; EPITHELIAL CELLS,URINE FEW /LPF; MUCUS,URINE FEW (RARE); RBC,URINE 0-5 /HPF (0-5); WBC,URINE (MAN) 0-5 /HPF (0-5)
[2020-01-10] VITALS (9 sets, daily range): BP systolic 101–138; BP diastolic 43–78
[2020-01-10] MEDS: CEFEPIME 1GM/NS 0.9% 50 ML 50 ML IV SCH ×2 (03:44→16:10)
[2020-01-10 06:28] LABS: BASOPHILS % 0.4 % (0.0-1.0); EOSINOPHILS % 0.1 % (0.0-6.0); HEMATOCRIT 31.8 % (38.2-49.6); HEMOGLOBIN 10.5 g/dL (14.0-18.0); LYMPHOCYTES # (AUTO) 1.3 (1.0-3.2); MEAN CORPUSCULAR HEMOGLOBIN 31.4 pg (28-32); MEAN CORPUSCULAR VOLUME 95.2 fL (81-99); MONOCYTES # (AUTO) 1.1 (0.2-0.8); MONOCYTES % 14.4 % (4.4-11.3); NEUTROPHILS # (AUTO) 5.4 (2.1-6.9); NEUTROPHILS % 68.6 % (38.7-80.0); PLATELET COUNT 161 x10e3/uL (140-360); RED BLOOD COUNT 3.34 x10e6/uL (4.3-5.7); RED CELL DISTRIBUTION WIDTH 13.8 % (11.7-14.4)
[2020-01-10 06:48] LABS: ANION GAP 14.4 mmol/L (8-16); CALCIUM 8.7 mg/dL (8.4-10.2); CREATININE, SERUM 1.71 mg/dL (0.72-1.25); POTASSIUM 4.4 mmol/L (3.5-5.1)
[2020-01-10] MEDS: ALBUTEROL/IPRATROPIUM 3 ML NEB NEB PRN ×3 (07:00→19:30)
[2020-01-10] MEDS: SUCRALFATE 1 GM/10 ML SUSP NG SCH ×4 (08:00→20:24)
[2020-01-10] MEDS: CARVEDILOL 3.125 MG TAB PO SCH ×2 (08:00→17:25)
[2020-01-10] MEDS: PANTOPRAZOLE SOD 40 MG TABEC PO SCH (08:00)
[2020-01-10] MEDS: GLIPIZIDE 5 MG TAB PO SCH ×2 (08:00→16:30)
[2020-01-10] MEDS: CITALOPRAM HYDROBROMIDE 20 MG TAB PO SCH (09:22)
[2020-01-10] MEDS: CLOPIDOGREL BISULFATE 75 MG TAB PO SCH (09:22)
[2020-01-10] MEDS: FUROSEMIDE INJ 10 MG/ML 2 ML VIAL IV SCH ×2 (09:22→17:24)
[2020-01-10] MEDS: INSULIN GLARGINE 100 UNITS/ML VIAL SC SCH (09:23)
[2020-01-10] MEDS: INSULIN REGULAR, HUMAN 100 UNIT/1 ML 3ML VIAL SQ SCH ×3 (12:30→20:53)
[2020-01-10] MEDS ORDERED: DEXTROSE 50% SYRINGE 50 ML IV PRN (12:30)
[2020-01-10] MEDS: ATORVASTATIN 40 MG TAB PO SCH (20:24)
[2020-01-10] MEDS: INSULIN GLARGINE 100 UNITS/ML VIAL SQ SCH (20:53)
[2020-01-11] VITALS (8 sets, daily range): BP systolic 99–172; BP diastolic 47–74
[2020-01-11] MEDS: CEFEPIME 1GM/NS 0.9% 50 ML 50 ML IV SCH ×2 (04:07→16:00)
[2020-01-11] MEDS: INSULIN REGULAR, HUMAN 100 UNIT/1 ML 3ML VIAL SQ SCH ×4 (07:30→20:17)
[2020-01-11] MEDS: ALBUTEROL/IPRATROPIUM 3 ML NEB NEB PRN ×3 (07:30→20:47)
[2020-01-11] MEDS: SUCRALFATE 1 GM/10 ML SUSP NG SCH ×4 (08:05→20:18)
[2020-01-11] MEDS: PANTOPRAZOLE SOD 40 MG TABEC PO SCH (08:05)
[2020-01-11] MEDS: GLIPIZIDE 5 MG TAB PO SCH ×2 (08:05→16:55)
[2020-01-11] MEDS: CLOPIDOGREL BISULFATE 75 MG TAB PO SCH (09:19)
[2020-01-11] MEDS: CARVEDILOL 3.125 MG TAB PO SCH ×2 (09:19→17:41)
[2020-01-11] MEDS: FUROSEMIDE INJ 10 MG/ML 2 ML VIAL IV SCH ×2 (09:19→17:40)
[2020-01-11] MEDS: CITALOPRAM HYDROBROMIDE 20 MG TAB PO SCH (09:20)
[2020-01-11] MEDS: INSULIN GLARGINE 100 UNITS/ML VIAL SC SCH (09:21)
[2020-01-11] MEDS: ATORVASTATIN 40 MG TAB PO SCH (20:18)
[2020-01-11] MEDS: INSULIN GLARGINE 100 UNITS/ML VIAL SQ SCH (20:18)
[2020-01-12] VITALS (8 sets, daily range): BP systolic 102–122; BP diastolic 53–66
[2020-01-12] MEDS: CEFEPIME 1GM/NS 0.9% 50 ML 50 ML IV SCH ×2 (03:33→16:20)
[2020-01-12 07:03] LABS: ANION GAP 14.1 mmol/L (8-16); CALCIUM 8.6 mg/dL (8.4-10.2); CREATININE, SERUM 1.74 mg/dL (0.72-1.25); POTASSIUM 4.1 mmol/L (3.5-5.1)
[2020-01-12] MEDS: INSULIN REGULAR, HUMAN 100 UNIT/1 ML 3ML VIAL SQ SCH ×4 (07:30→20:31)
[2020-01-12] MEDS: SUCRALFATE 1 GM/10 ML SUSP NG SCH ×4 (08:15→20:30)
[2020-01-12] MEDS: GLIPIZIDE 5 MG TAB PO SCH ×2 (08:15→17:00)
[2020-01-12] MEDS: PANTOPRAZOLE SOD 40 MG TABEC PO SCH (08:15)
[2020-01-12] MEDS: CITALOPRAM HYDROBROMIDE 20 MG TAB PO SCH (08:53)
[2020-01-12] MEDS: CLOPIDOGREL BISULFATE 75 MG TAB PO SCH (08:53)
[2020-01-12] MEDS: FUROSEMIDE INJ 10 MG/ML 2 ML VIAL IV SCH ×2 (08:53→17:53)
[2020-01-12] MEDS: CARVEDILOL 3.125 MG TAB PO SCH ×2 (08:53→17:00)
[2020-01-12] MEDS: INSULIN GLARGINE 100 UNITS/ML VIAL SC SCH (08:54)
[2020-01-12] MEDS: ALBUTEROL/IPRATROPIUM 3 ML NEB NEB PRN (19:06)
[2020-01-12] MEDS: ATORVASTATIN 40 MG TAB PO SCH (20:30)
[2020-01-12] MEDS: INSULIN GLARGINE 100 UNITS/ML VIAL SQ SCH (20:31)
[2020-01-13 00:15] VITALS: BP 115/56
[2020-01-13] MEDS: CEFEPIME 1GM/NS 0.9% 50 ML 50 ML IV SCH (04:00)
[2020-01-13 04:30] VITALS: BP 120/63
[2020-01-13 06:32] LABS: BASOPHILS # (AUTO) 0.1 (0.0-0.1); EOSINOPHILS # (AUTO) 0.1 (0.0-0.4); EOSINOPHILS % 1.6 % (0.0-6.0); HEMATOCRIT 32.9 % (38.2-49.6); HEMOGLOBIN 10.8 g/dL (14.0-18.0); LYMPHOCYTES # (AUTO) 1.4 (1.0-3.2); MEAN CORPUSCULAR HEMOGLOBIN 30.6 pg (28-32); MEAN CORPUSCULAR HGB CONC 32.8 g/dL (31-35); MEAN CORPUSCULAR VOLUME 93.2 fL (81-99); MONOCYTES # (AUTO) 0.9 (0.2-0.8); MONOCYTES % 15.1 % (4.4-11.3); NEUTROPHILS # (AUTO) 3.3 (2.1-6.9); NEUTROPHILS % 57.6 % (38.7-80.0); PLATELET COUNT 224 x10e3/uL (140-360); RED BLOOD COUNT 3.53 x10e6/uL (4.3-5.7); RED CELL DISTRIBUTION WIDTH 13.5 % (11.7-14.4)
[2020-01-13 06:52] LABS: ALBUMIN 3.3 g/dL (3.5-5.0); ANION GAP 13.9 mmol/L (8-16); CALCIUM 8.3 mg/dL (8.4-10.2); CREATININE, SERUM 1.67 mg/dL (0.72-1.25); MAGNESIUM 2.1 MG/DL (1.3-2.1); POTASSIUM 3.9 mmol/L (3.5-5.1)
[2020-01-13] MEDS: ALBUTEROL/IPRATROPIUM 3 ML NEB NEB PRN (07:45)
[2020-01-13] MEDS: PANTOPRAZOLE SOD 40 MG TABEC PO SCH (08:12)
[2020-01-13] MEDS: SUCRALFATE 1 GM/10 ML SUSP NG SCH ×2 (08:12→11:30)
[2020-01-13] MEDS: GLIPIZIDE 5 MG TAB PO SCH (08:12)
[2020-01-13] MEDS: CITALOPRAM HYDROBROMIDE 20 MG TAB PO SCH (08:13)
[2020-01-13] MEDS: CARVEDILOL 3.125 MG TAB PO SCH (08:13)
[2020-01-13] MEDS: FUROSEMIDE INJ 10 MG/ML 2 ML VIAL IV SCH (08:13)
[2020-01-13] MEDS: CLOPIDOGREL BISULFATE 75 MG TAB PO SCH (08:13)
[2020-01-13] MEDS: INSULIN GLARGINE 100 UNITS/ML VIAL SC SCH (08:15)
[2020-01-13] MEDS: INSULIN REGULAR, HUMAN 100 UNIT/1 ML 3ML VIAL SQ SCH ×2 (08:15→12:10)
[2020-01-13 08:38] VITALS: BP 129/67
[2020-01-13 08:52] VITALS: BP 129/67
[2020-01-13 12:09] VITALS: BP 117/61
== END 2020-01-13 12:42 | disposition home or self-care (01) | DRG 193 ==
LOC: ER 15:09 → ERHOLD 16:22 → MED/SURG3 17:11
PROVIDERS: ADMIT Internal Medicine; ATTEND Internal Medicine
DX: J18.9 Pneumonia, unspecified organism (principal); I50.23 Acute on chronic systolic (congestive) heart failure; I13.0 Hypertensive heart and chronic kidney disease with heart failure and stage 1 through stage 4 chronic kidney disease, or unspecified chronic kidney disease; N18.9 Chronic kidney disease, unspecified; N18.30 Chronic kidney disease, stage 3 unspecified; E11.22 Type 2 diabetes mellitus with diabetic chronic kidney disease; K21.9 Gastro-esophageal reflux disease without esophagitis; E78.5 Hyperlipidemia, unspecified; E11.65 Type 2 diabetes mellitus with hyperglycemia; E66.9 Obesity, unspecified; Z68.35 Body mass index [BMI] 35.0-35.9, adult; J44.9 Chronic obstructive pulmonary disease, unspecified; I25.2 Old myocardial infarction; I25.10 Atherosclerotic heart disease of native coronary artery without angina pectoris
CPT/HCPCS: 36415; 71045; 80048; 80053; 81001; 82948; 83605; 83735; 83880; 84484; 85025; 87040; 87086; 87400; 93005; 93306; 94640; 99284; J0692; J1815; J1817; J1940; J7121; U0002

== ENCOUNTER 2020-08-09 14:26 | Inpatient (IN) | payer MEDICARE ==
[~2020-08-09] VITALS: Ht 175.3 cm; Wt 107.5 kg
[2020-08-09] MEDS ORDERED: CEFTRIAXONE SOD 1 GM in SODIUM CHLORIDE 0.9% 50ML 50 ML IV SCH (15:30)
[2020-08-09 15:45] LABS: BASOPHILS % 0.3 % (0.0-1.0); EOSINOPHILS % 0.5 % (0.0-6.0); HEMATOCRIT 33.7 % (38.2-49.6); HEMOGLOBIN 10.9 g/dL (14.0-18.0); LYMPHOCYTES # (AUTO) 1.5 (1.0-3.2); LYMPHOCYTES % 18.8 % (18.0-39.1); MEAN CORPUSCULAR HEMOGLOBIN 31.1 pg (28-32); MEAN CORPUSCULAR HGB CONC 32.3 g/dL (31-35); NEUTROPHILS # (AUTO) 5.4 (2.1-6.9); PLATELET COUNT 205 x10e3/uL (140-360); RED BLOOD COUNT 3.51 x10e6/uL (4.3-5.7)
[2020-08-09 15:51] LABS: INR 0.91; PROTHROMBIN TIME 12.8 seconds (11.9-14.5)
[2020-08-09 15:52] LABS: PARTIAL THROMBOPLASTIN TIME 31.5 seconds (23.8-35.5)
[2020-08-09 16:01] LABS: ALBUMIN 3.7 g/dL (3.5-5.0); ALBUMIN/GLOBULIN RATIO 1.2 (0.8-2.0); ANION GAP 18.2 mmol/L (8-16); CALCIUM 9.3 mg/dL (8.4-10.2); CREATININE, SERUM 1.82 mg/dL (0.72-1.25); POTASSIUM 4.2 mmol/L (3.5-5.1)
[2020-08-09 16:08] LABS: CREATINE KINASE MB 1.9 ng/mL (0-5.0)
[2020-08-09 16:11] LABS: B-TYPE NATRIURETIC PEPTIDE2 168.3 pg/mL (0-100)
[2020-08-09] MEDS ORDERED: SODIUM CHLORIDE 0.9% 1000ML 1,000 ML IV STA (16:19)
[2020-08-09] MEDS ORDERED: METHYLPREDNISOLONE SOD SUCC 125 MG/2ML VIAL IV NR (16:45)
[2020-08-09] MEDS ORDERED: METHYLPREDNISOLONE SOD SUCC 125 MG/2ML VIAL IV ONE (16:45)
[2020-08-09] MEDS ORDERED: ALBUTEROL/IPRATROPIUM 3 ML NEB NEB NR ×2 (16:45)
[2020-08-09] MEDS ORDERED: DEXTROSE 50% SYRINGE 50 ML IV PRN (17:15)
[2020-08-09] MEDS ORDERED: ALBUTEROL SULF 0.083% NEB SOLN 3 ML NEB NEB PRN (17:15)
[2020-08-09] MEDS ORDERED: BENZONATATE 100 MG CAP PO PRN (17:15)
[2020-08-09] MEDS ORDERED: ASPIRIN 81 MG CHEW TAB PO ONE (17:30)
[2020-08-09] MEDS ORDERED: CARVEDILOL 3.125 MG TAB PO SCH (18:52)
[2020-08-09] MEDS ORDERED: DOXYCYCLINE 100MG/NS 100ML 100 ML IV SCH (19:00)
[2020-08-09 19:05] LABS: CLARITY,URINE SL CLOUDY (CLEAR); COLOR,URINE YELLOW (YELLOW); KETONES,URINE NEGATIVE (NEGATIVE); LEUKOCYTE ESTERASE ,URINE MODERATE (NEGATIVE); NITRITE,URINE NEGATIVE (NEGATIVE); PROTEIN,URINE DIPSTICK NEGATIVE (NEGATIVE); URINE UROBILINOGEN 0.2 mg/dL (0.2 - 1)
[2020-08-09 19:29] LABS: BACTERIA,URINE MANY /HPF; EPITHELIAL CELLS,URINE MODERATE /LPF; TRANSITIONAL EPI CELLS,URINE FEW; WBC,URINE (MAN) >50 /HPF (0-5)
[2020-08-09] MEDS ORDERED: SODIUM CHLORIDE 0.9% 1000ML 1,000 ML IV ONE (19:45)
[2020-08-09] MEDS: CEFEPIME HCL 1GM 1 GM in SODIUM CHLORIDE 0.9% 50ML 50 ML IV SCH (20:02)
[2020-08-09] MEDS ORDERED: CEFEPIME HCL 1 GM VIAL ONE (20:07)
[2020-08-09 20:30] VITALS: BP 122/65
[2020-08-09] MEDS ORDERED: CEFEPIME HCL 1 GM VIAL IV SCH (20:30)
[2020-08-09 20:45] VITALS: BP 122/65
[2020-08-09] MEDS: INSULIN REGULAR, HUMAN 100 UNIT/1 ML 3ML VIAL SQ SCH (22:34)
[2020-08-10] VITALS (8 sets, daily range): BP systolic 97–111; BP diastolic 41–62
[2020-08-10 01:07] LABS: CREATINE KINASE MB 1.5 ng/mL (0-5.0)
[2020-08-10 05:28] LABS: BASOPHILS % 0.1 % (0.0-1.0); HEMATOCRIT 32.8 % (38.2-49.6); HEMOGLOBIN 10.6 g/dL (14.0-18.0); LYMPHOCYTES # (AUTO) 0.7 (1.0-3.2); LYMPHOCYTES % 7.8 % (18.0-39.1); MEAN CORPUSCULAR HEMOGLOBIN 31.3 pg (28-32); MEAN CORPUSCULAR HGB CONC 32.3 g/dL (31-35); MEAN CORPUSCULAR VOLUME 96.8 fL (81-99); MONOCYTES # (AUTO) 0.4 (0.2-0.8); MONOCYTES % 4.2 % (4.4-11.3); NEUTROPHILS # (AUTO) 7.5 (2.1-6.9); NEUTROPHILS % 87.3 % (38.7-80.0); PLATELET COUNT 186 x10e3/uL (140-360); RED BLOOD COUNT 3.39 x10e6/uL (4.3-5.7); RED CELL DISTRIBUTION WIDTH 13.8 % (11.7-14.4)
[2020-08-10 05:47] LABS: ANION GAP 16.2 mmol/L (8-16); CALCIUM 8.6 mg/dL (8.4-10.2); CREATININE, SERUM 1.62 mg/dL (0.72-1.25); POTASSIUM 4.2 mmol/L (3.5-5.1)
[2020-08-10] MEDS: INSULIN REGULAR, HUMAN 100 UNIT/1 ML 3ML VIAL SQ SCH ×4 (07:30→21:20)
[2020-08-10] MEDS ORDERED: GLIPIZIDE 5 MG TAB PO SCH (09:00)
[2020-08-10 09:48] LABS: CREATINE KINASE MB 4.2 ng/mL (0-5.0)
[2020-08-10] MEDS: PANTOPRAZOLE SOD 40 MG TABEC PO SCH (10:00)
[2020-08-10] MEDS: CLOPIDOGREL BISULFATE 75 MG TAB PO SCH (10:00)
[2020-08-10] MEDS: FUROSEMIDE 40 MG TAB PO SCH (10:00)
[2020-08-10] MEDS: CHOLECALCIFEROL 1,000 UNIT TAB PO SCH (10:00)
[2020-08-10] MEDS: CEFEPIME HCL 1GM 1 GM in SODIUM CHLORIDE 0.9% 50ML 50 ML IV SCH ×2 (10:04→20:47)
[2020-08-10] MEDS ORDERED: ZOLPIDEM TARTRATE 5 MG TAB PO PRN (13:15)
[2020-08-10] MEDS ORDERED: DOCUSATE SODIUM 100 MG CAP PO PRN (13:15)
[2020-08-10] MEDS ORDERED: ONDANSETRON HCL INJ 2MG/ML 2ML 2 MG/ML VIAL IV PRN (13:15)
[2020-08-10 14:47] LABS: CREATINE KINASE MB 5.8 ng/mL (0-5.0)
[2020-08-10] MEDS: CARVEDILOL 3.125 MG TAB PO SCH (16:54)
[2020-08-10] MEDS: ATORVASTATIN 40 MG TAB PO SCH (20:47)
[2020-08-10] MEDS: METHYLPREDNISOLONE SOD SUCC 40 MG/ML VIAL 1ML IV SCH (20:47)
[2020-08-10 22:09] LABS: CREATININE,URINE RANDOM 46.17 mg/dL (63-166)
[2020-08-11] VITALS (7 sets, daily range): BP systolic 95–116; BP diastolic 46–78
[2020-08-11 05:15] LABS: BASOPHILS % 0.1 % (0.0-1.0); HEMATOCRIT 31.5 % (38.2-49.6); HEMOGLOBIN 10.4 g/dL (14.0-18.0); LYMPHOCYTES # (AUTO) 0.6 (1.0-3.2); LYMPHOCYTES % 6.8 % (18.0-39.1); MEAN CORPUSCULAR HEMOGLOBIN 31.9 pg (28-32); MEAN CORPUSCULAR VOLUME 96.6 fL (81-99); MONOCYTES # (AUTO) 0.3 (0.2-0.8); MONOCYTES % 4.2 % (4.4-11.3); NEUTROPHILS # (AUTO) 7.1 (2.1-6.9); NEUTROPHILS % 88.3 % (38.7-80.0); PLATELET COUNT 194 x10e3/uL (140-360); RED BLOOD COUNT 3.26 x10e6/uL (4.3-5.7); RED CELL DISTRIBUTION WIDTH 13.8 % (11.7-14.4)
[2020-08-11 05:34] LABS: PHOSPHORUS 4.4 MG/DL (2.3-4.7)
[2020-08-11 05:52] LABS: ALBUMIN 3.5 g/dL (3.5-5.0); ALBUMIN/GLOBULIN RATIO 1.2 (0.8-2.0); ANION GAP 15.6 mmol/L (8-16); CALCIUM 8.9 mg/dL (8.4-10.2); CREATININE, SERUM 1.88 mg/dL (0.72-1.25); POTASSIUM 4.6 mmol/L (3.5-5.1)
[2020-08-11] MEDS: INSULIN REGULAR, HUMAN 100 UNIT/1 ML 3ML VIAL SQ SCH ×4 (07:30→21:00)
[2020-08-11] MEDS: CARVEDILOL 3.125 MG TAB PO SCH ×2 (08:00→16:21)
[2020-08-11] MEDS: PANTOPRAZOLE SOD 40 MG TABEC PO SCH (09:24)
[2020-08-11] MEDS: CEFEPIME HCL 1GM 1 GM in SODIUM CHLORIDE 0.9% 50ML 50 ML IV SCH (09:24)
[2020-08-11] MEDS: CHOLECALCIFEROL 1,000 UNIT TAB PO SCH (09:24)
[2020-08-11] MEDS: METHYLPREDNISOLONE SOD SUCC 40 MG/ML VIAL 1ML IV SCH ×2 (09:24→21:00)
[2020-08-11] MEDS: FUROSEMIDE 40 MG TAB PO SCH (09:24)
[2020-08-11] MEDS: CLOPIDOGREL BISULFATE 75 MG TAB PO SCH (09:24)
[2020-08-11 09:43] LABS: PHOSPHORUS 4.5 MG/DL (2.3-4.7)
[2020-08-11] MEDS ORDERED: ONDANSETRON HCL 4 MG ORAL DISINTEGRATING TAB PO PRN (10:45)
[2020-08-11] MEDS: ATORVASTATIN 40 MG TAB PO SCH (21:00)
[2020-08-12] VITALS (8 sets, daily range): BP systolic 107–126; BP diastolic 52–68
[2020-08-12 05:57] LABS: ALBUMIN 3.2 g/dL (3.5-5.0); ALBUMIN/GLOBULIN RATIO 1.1 (0.8-2.0); ANION GAP 14.4 mmol/L (8-16); CALCIUM 8.4 mg/dL (8.4-10.2); CREATININE, SERUM 1.93 mg/dL (0.72-1.25); POTASSIUM 4.4 mmol/L (3.5-5.1)
[2020-08-12 09:25] LABS: MAGNESIUM 2.2 MG/DL (1.3-2.1)
[2020-08-12 09:55] LABS: PHOSPHORUS 3.5 MG/DL (2.3-4.7)
[2020-08-12] MEDS: INSULIN REGULAR, HUMAN 100 UNIT/1 ML 3ML VIAL SQ SCH ×4 (10:06→20:40)
[2020-08-12] MEDS: INSULIN GLARGINE 100 UNITS/ML VIAL SQ SCH (10:06)
[2020-08-12] MEDS: CARVEDILOL 3.125 MG TAB PO SCH ×2 (10:16→17:00)
[2020-08-12] MEDS: METHYLPREDNISOLONE SOD SUCC 40 MG/ML VIAL 1ML IV SCH ×2 (10:16→20:40)
[2020-08-12] MEDS: CEFEPIME HCL 1GM 1 GM in SODIUM CHLORIDE 0.9% 50ML 50 ML IV SCH (10:16)
[2020-08-12] MEDS: PANTOPRAZOLE SOD 40 MG TABEC PO SCH (10:17)
[2020-08-12] MEDS: FUROSEMIDE 40 MG TAB PO SCH (10:17)
[2020-08-12] MEDS: CHOLECALCIFEROL 1,000 UNIT TAB PO SCH (10:17)
[2020-08-12] MEDS: CLOPIDOGREL BISULFATE 75 MG TAB PO SCH (10:17)
[2020-08-12 10:19] LABS: CHOL/HDL RATIO 1.9 (3.9-4.7)
[2020-08-12] MEDS: ATORVASTATIN 40 MG TAB PO SCH (20:40)
[2020-08-12] MEDS ORDERED: INSULIN GLARGINE 100 UNITS/ML VIAL SQ SCH (21:00)
[2020-08-13] VITALS (7 sets, daily range): BP systolic 93–134; BP diastolic 42–65
[2020-08-13 04:49] LABS: BASOPHILS % 0.1 % (0.0-1.0); HEMATOCRIT 31.3 % (38.2-49.6); HEMOGLOBIN 10.4 g/dL (14.0-18.0); LYMPHOCYTES # (AUTO) 0.8 (1.0-3.2); LYMPHOCYTES % 9.8 % (18.0-39.1); MEAN CORPUSCULAR HEMOGLOBIN 31.3 pg (28-32); MEAN CORPUSCULAR HGB CONC 33.2 g/dL (31-35); MEAN CORPUSCULAR VOLUME 94.3 fL (81-99); MONOCYTES # (AUTO) 0.7 (0.2-0.8); MONOCYTES % 9.3 % (4.4-11.3); NEUTROPHILS # (AUTO) 6.1 (2.1-6.9); NEUTROPHILS % 80.1 % (38.7-80.0); PLATELET COUNT 182 x10e3/uL (140-360); RED BLOOD COUNT 3.32 x10e6/uL (4.3-5.7); RED CELL DISTRIBUTION WIDTH 13.5 % (11.7-14.4)
[2020-08-13 05:16] LABS: ANION GAP 14.4 mmol/L (8-16); CALCIUM 8.6 mg/dL (8.4-10.2); CREATININE, SERUM 1.56 mg/dL (0.72-1.25); MAGNESIUM 2.3 MG/DL (1.3-2.1); PHOSPHORUS 3.6 MG/DL (2.3-4.7); POTASSIUM 4.4 mmol/L (3.5-5.1)
[2020-08-13] MEDS: INSULIN REGULAR, HUMAN 100 UNIT/1 ML 3ML VIAL SQ SCH ×3 (07:30→16:30)
[2020-08-13] MEDS: INSULIN LISPRO 100 UNIT/1 ML 3ML VIAL SQ SCH ×3 (07:30→16:30)
[2020-08-13] MEDS: CARVEDILOL 3.125 MG TAB PO SCH ×2 (08:00→16:43)
[2020-08-13] MEDS: METHYLPREDNISOLONE SOD SUCC 40 MG/ML VIAL 1ML IV SCH (08:27)
[2020-08-13] MEDS: PANTOPRAZOLE SOD 40 MG TABEC PO SCH (08:27)
[2020-08-13] MEDS: FUROSEMIDE 40 MG TAB PO SCH (08:27)
[2020-08-13] MEDS: CHOLECALCIFEROL 1,000 UNIT TAB PO SCH (08:27)
[2020-08-13] MEDS: CLOPIDOGREL BISULFATE 75 MG TAB PO SCH (08:27)
[2020-08-13] MEDS: INSULIN GLARGINE 100 UNITS/ML VIAL SQ SCH (08:29)
[2020-08-13] MEDS: CEFEPIME HCL 1GM 1 GM in SODIUM CHLORIDE 0.9% 50ML 50 ML IV SCH (08:34)
[2020-08-13] MEDS ORDERED: TESSALON PERLE100 MG PO (19:07)
[2020-08-13] MEDS ORDERED: ROBITUSSIN COU118 M4 PO (19:07)
[2020-08-13] MEDS ORDERED: PREDNISONE20 MG PO (19:07)
[2020-08-13] MEDS ORDERED: ZITHROMAX250 MG PO (19:07)
[2020-08-13] MEDS ORDERED: CEFUROXIME250 MG PO (19:07)
== END 2020-08-13 20:20 | disposition home or self-care (01) | DRG 871 ==
LOC: ER 14:34 → ERHOLD 15:35 → MED/SURG3 21:40
PROVIDERS: ADMIT Internal Medicine; ATTEND Internal Medicine
DX: A41.9 Sepsis, unspecified organism (principal); I50.43 Acute on chronic combined systolic (congestive) and diastolic (congestive) heart failure; I13.0 Hypertensive heart and chronic kidney disease with heart failure and stage 1 through stage 4 chronic kidney disease, or unspecified chronic kidney disease; N39.0 Urinary tract infection, site not specified; J44.1 Chronic obstructive pulmonary disease with (acute) exacerbation; E87.2 Acidosis; N17.9 Acute kidney failure, unspecified; N13.8 Other obstructive and reflux uropathy; N18.30 Chronic kidney disease, stage 3 unspecified; I25.10 Atherosclerotic heart disease of native coronary artery without angina pectoris; I25.2 Old myocardial infarction; Z95.5 Presence of coronary angioplasty implant and graft; J44.9 Chronic obstructive pulmonary disease, unspecified; E11.22 Type 2 diabetes mellitus with diabetic chronic kidney disease; Z20.822 Contact with and (suspected) exposure to COVID-19; Z99.81 Dependence on supplemental oxygen; E11.65 Type 2 diabetes mellitus with hyperglycemia; N40.1 Benign prostatic hyperplasia with lower urinary tract symptoms; Z95.0 Presence of cardiac pacemaker
CPT/HCPCS: 36415; 71045; 76770; 80048; 80053; 80061; 81001; 82550; 82553; 82570; 82948; 83036; 83605; 83735; 83880; 84100; 84300; 84484; 85025; 85610; 85730; 87040; 87086; 93005; 93306; 94640; 96372; 99284; J0692; J0696; J1815; J1817; J2920; J2930; J7030; U0002

== ENCOUNTER 2020-08-25 12:51 | Emergency (ER) | payer MEDICARE ==
[~2020-08-25] VITALS: Ht 175.3 cm; Wt 107.5 kg
[~2020-08-25 12:51] MED LIST changes: +CEFUROXIME250 MG PO; +PREDNISONE20 MG PO; +ROBITUSSIN COU118 M4 PO; +ZITHROMAX250 MG PO
== END 2020-08-25 13:44 | disposition home or self-care (01) ==
LOC: ER 12:54
DX: M54.5 Low back pain (principal); M62.830 Muscle spasm of back; I10 Essential (primary) hypertension; E11.9 Type 2 diabetes mellitus without complications; J44.9 Chronic obstructive pulmonary disease, unspecified; I25.10 Atherosclerotic heart disease of native coronary artery without angina pectoris; E78.5 Hyperlipidemia, unspecified; N18.9 Chronic kidney disease, unspecified; Z95.810 Presence of automatic (implantable) cardiac defibrillator; Z95.5 Presence of coronary angioplasty implant and graft
CPT/HCPCS: 99282

== ENCOUNTER 2021-01-06 13:13 | Emergency (ER) | payer MEDICARE ==
[~2021-01-06] VITALS: Ht 175.3 cm; Wt 93.0 kg
[2021-01-06] MEDS ORDERED: CASIRIVIMAB/IMDEVIMAB 10 ML in SODIUM CHLORIDE 0.9% 100 ML IV ONE (13:30)
== END 2021-01-06 15:30 | disposition home or self-care (01) ==
LOC: ER 13:24
DX: U07.1 COVID-19 (principal); R05.9 Cough, unspecified; I10 Essential (primary) hypertension; E11.9 Type 2 diabetes mellitus without complications; E78.5 Hyperlipidemia, unspecified; J44.9 Chronic obstructive pulmonary disease, unspecified; I50.9 Heart failure, unspecified; I25.10 Atherosclerotic heart disease of native coronary artery without angina pectoris; I25.2 Old myocardial infarction; Z95.5 Presence of coronary angioplasty implant and graft; Z95.810 Presence of automatic (implantable) cardiac defibrillator
CPT/HCPCS: 99283